=== PATIENT | male | born 1960 | race Caucasian/White ===

== ENCOUNTER → 2017-10-19 | Outpatient (CLI) | payer MEDICARE, MEDICAID, SELFPAY | PROVIDERS: Visit Provider Internal Medicine | DX: S91.301A Unspecified open wound, right foot, initial encounter (principal) | CPT/HCPCS: 87070; 87077; 87186 ==

== ENCOUNTER → 2018-01-08 09:31 | Outpatient (CLI) | payer MEDICARE, MEDICAID, SELFPAY ==
--- NOTE | 2018-01-08 | CA_ITS ---
PROCEDURE: 2-D M-mode and color Doppler study INDICATIONS FOR THE TEST: Chest pain COPD+ Heart Murmur Tobacco Smoking+ Palpitations+ Fatigue Syncope Edema Hypertension+Diabetes Mellitus+ Rheumatic Fever SOB+HILL+Obesity Hyperlipidemia+ Family History HD Additional History CAD, CABG Patient was slumped over in a wheelchair and unable to move to a bed. Imaging was performed with patient positioned as such, limiting visualization. PATIENT INFORMATION HEIGHT: 71 WEIGHT: 223 GENDER: Male B/P: 112/64 2-D/M-MODE INTERPRETATION: 2-D MEASUREMENTS OBSERVED VALUES IN CMS Right Ventricular Dimension (RVDd) 2.4 Interventricular Septum (Thickness)(IVsd) 1.3 Left Ventricular Internal Dimensions(LVIDd) 4.9 Left Ventricular Posterior Wall (Thickness)(LVPWd) 1.5 Aortic Root Aortic Cusp Separation Left Atrial Dimensions (LAD) 2D 1. Technically difficult study because of the patient's factor and poor acoustic windows 2. Left atrium is mildly enlarged, left ventricle is mildly dilated, there is mild concentric left ventricular hypertrophy, there is severely reduced left ventricular systolic function, visually estimated ejection fraction approximately 20%, there is marked hypo to akinesis involving mid to distal septum, anterior, anteroapical and apical wall. 3. The right atrium and right ventricle are normal size and contractility. 4. The aortic valve is minimally thickened and fibrosed. 5. The mitral and tricuspid valve leaflets are minimally thickened. 6. No significant pericardial effusion noted. DOPPLER INTERROGATION: Doppler interrogation of the aortic, mitral and tricuspid valvular presence of mild mitral and tricuspid regurgitation, tricuspid and jet velocity insufficient for calculation of the right ventricular systolic pressure, grade 1 diastolic dysfunction seen with tissue Doppler evidence of raised left atrial pressure. CONCLUSION: 1. Mildly enlarged left atrium, mildly dilated left ventricle, there is mild concentric left ventricular hypertrophy, there is severely reduced left ventricular systolic function, visually estimated ejection fraction 20%, with multiple segmental wall motion abnormality described above, grade 1 diastolic dysfunction seen with tissue Doppler evidence of raised left atrial pressure. 2. Mild mitral and tricuspid regurgitation 3. Technically difficult study because of the patient's factor and poor acoustic windows.
--- NOTE | 2018-01-08 10:38 | CT_ITS ---
CT angio abdomen/femoral INDICATION: Nonhealing ulcer of the right foot, peripheral artery disease, carotid artery disease, hypertension and diabetes ITS.REASON: CTA ABD AORTA/PAD/CAD ORDERING PHYSICIAN: Rios Recio MD PATIENT AGE: 57 years COMPARISON: None TECHNIQUE: Axial images are obtained following the bolus administration 120 mL of Isovue-370. Thin section images obtained with workstation MIP reformats. Sagittal and coronal reformatted images are reviewed as well. FINDINGS: Vascular findings: There are scattered atheromatous changes of the abdominal aorta. The celiac and superior mesenteric arteries are unremarkable. There is moderate to high-grade stenosis of the proximal aspect of the right renal artery of greater than 50%. There is 50% stenosis of the ostium of the left renal artery. Scattered calcific plaque is present in the abdominal aorta and iliac vessels. No significant stenosis however. Right lower extremity: Scattered calcific plaque is present in the right common femoral artery, superficial femoral artery and popliteal artery with segmental areas of stenosis which are less than 50%. There is moderate stenosis of the distal SFA on the right of 50-60% with scattered calcific plaque in the popliteal artery. There is moderate to severe calcific plaque in the tibial peroneal trunk. 2 runoff vessels to the ankle on the right are the peroneal and posterior tibial artery. High-grade stenosis is suspected at the distal aspect of the tibial peroneal trunk/origin of the posterior tibial artery of greater than 75%. This is somewhat difficult to evaluate due to venous contamination and the calcific plaque. Left lower extremity: Scattered calcific plaque is present in the common femoral, SFA, and popliteal artery with no critical stenotic lesions evident Severe atheromatous changes involve the tibial peroneal trunk on the left with high-grade stenosis and feeding of the tibial peroneal trauma with calcific plaque suspected 75% or greater stenosis at the distal aspect of the tibial peroneal trunk and severe stenosis of the proximal posterior tibial artery. Posterior tibial artery and anterior tibial artery are patent to the ankle. Peroneal artery is also patent at the ankle. Nonvascular findings: There is bowel interposition on the right with a moderate amount retained colonic feces. There is a 19 mm isodensity in the spleen and may represent splenic cyst. There is mild distention of the urinary bladder. No abdominal pelvic mass or focal inflammatory change evident. Small nodes are present in the right inguinal region IMPRESSION: 1. Scattered calcific plaque involves the aorta, iliac arteries, common femoral arteries differential femoral arteries and popliteal arteries with no significant stenosis. 2. Severe atheromatous changes involve the tibial peroneal trunk bilaterally with high-grade stenosis at the tibial peroneal trunks/ostium of the posterior tibia arteries of greater than 75%. 3. Bilateral renal artery stenosis.
--- NOTE | 2018-01-08 13:44 | HMH.ITSHM ---
ACETAMINOPHEN BISACODYL LIQUITEARS ONDANSETRON ALLOPURINOL ARIPIPRAZOLE ASPIRIN CARBIDOPA CARVEDILOL DIASEPAM DULOXETINE FLUTICASONE GABAPENTIN HUMULIN DOXYCYCLINE HYDROCODONE LORTAB LACTULOSE POLYETHYLENE GLYCOL SENNA PLUS SIIMVASTATIN TAMSULOSIN VITAMIN C VITAMIN D3
== END ==
PROVIDERS: Family Provider Emergency Medicine; PCP Emergency Medicine; Visit Provider Internal Medicine
DX: I25.10 Atherosclerotic heart disease of native coronary artery without angina pectoris (principal); I73.9 Peripheral vascular disease, unspecified; I71.4 Abdominal aortic aneurysm, without rupture
CPT/HCPCS: 75635; 93306; Q9967

== ENCOUNTER 2018-01-29 07:14 | Day surgery (SDC) | payer MEDICARE, MEDICAID, SELFPAY ==
[2018-01-29] VITALS (14 sets, daily range): BP systolic 101–151; BP diastolic 53–100; PULSE 76–110; RESP 16–20; TEMP 36.7; O2SAT 92–98; BMI 27.8
--- NOTE | 2018-01-29 | IR_ITS ---
CARDIAC CATHETERIZATION DATE OF CATHETERIZATION:01/29/2018 10:12 AM PROCEDURES: 1. Left heart catheterization 2. Left ventriculogram 3. Selective coronary angiogram 4. Selective engagement of the saphenous vein graft to the left and right coronary artery 5. Catheter placement in the right superficial femoral artery 6. Superficial femoral artery angiogram with unilateral runoff to the foot 7. Catheter placement on the right common iliac artery 8. Right common iliac artery angiogram with right external iliac artery angiogram and right common femoral artery angiogram 9. Catheter placement in the left common iliac artery 10. Left common iliac artery angiogram with unilateral runoff to the foot 11. Catheter placed in the abdominal aorta 12. Abdominal aortogram INDICATION FOR TEST: 1. Coronary artery disease 2. Angina pectoris class III and IV 3. History of coronary bypass surgery 4. Peripheral artery disease Dariana class 5. History of bilateral transmetatarsal amputation 6. Poorly healing right lower extremity ulcer with limb threatening ischemia Informed consent was obtained prior to the procedure. COMPLICATIONS: None ESTIMATED BLOOD LOSS: Less than 10 ml. TECHNIQUE: One percent lidocaine used to anesthetize the right anterior aspect of the wrist. The right radial artery was accessed via the Seldinger technique. A 6 Indonesian sheath was placed in the right radial artery. 2.5 mg of verapamil, 800 mcg of nitroglycerin and 5000 U Heparin were given through the arterial sheath. The trap catheter was also used to perform left heart catheterization left ventriculogram and selective coronary angiogram. The same catheter was used intubate the left saphenous vein graft supplying both the left coronary system in the right system. Following this a PV multipurpose 135 cm catheter was used to cannulate the right superficial femoral artery and unilateral runoff to the foot was performed. The catheter was pulled back into the right common iliac artery and angiography was performed. This included angiography of the right common and right external iliac artery as well as right common femoral artery. The catheter was pulled back and used to cannulate the left common iliac artery report unilateral runoff to the foot was performed. The catheter was pulled back into the abdominal aorta and distal abdominal aortography was performed. At the end of the procedure the apparatus was removed the sheath was removed good hemostasis was achieved using TR banding patient was transferred to the postop holding area in stable condition ANGIOGRAPHIC RESULTS: 1. The left main artery is normal 2. The left anterior descending artery has proximal 70% stenosis with competitive flow distally from the left internal mammary artery. The first diagonal artery is proximally occluded 3. The circumflex artery is proximally occluded 4. The right coronary artery appears to be dominant and has proximal 30 with mid vessel 40 and 50% stenoses and distal 50% stenoses. The posterior descending artery has competitive flow from moving graft. 2 marginal arteries preceding the PDA are less than 2 mm in diameter and has mild nonflow limiting disease 5. The ROWLEY ventriculogram reveals mild left ventricular dilatation inferior wall akinesis ejection fraction 45% 6. The left ventricular end-diastolic pressure 12 mmHg 7. Large saphenous vein graft originates from the ascending aorta and then bifurcates. The superior larger branch makes its anastomosis on to the first diagonal artery which fills a 1.5 mm diagonal artery and then skips over to the mid posterior descending artery. The PDA is a long 2 mm vessel. The inferior branch of this vein graft supplies a small to medium sized first obtuse marginal artery 8. Le
[2018-01-29 07:47] LABS: Basophils % 0.5 % (0.1-2.0); Eosinophils # 0.6 K/mm3 (0.0-0.4); Eosinophils % 6.7 % (0.1-12.0); Hematocrit 41.6 % (42.0-52.0); Hemoglobin 12.8 g/dL (14.1-18.0); Lymphocytes % 24.3 K/mm3 (10-50); Mean Corpuscular HGB Conc 30.7 g/dL (31.8-35.4); Mean Corpuscular Hemoglobin 28.3 pg (27.0-31.2); Mean Corpuscular Volume 91.9 fl (80-94); Mean Platelet Volume 8.2 fl (7.4-10.4); Monocytes # 0.5 K/mm3 (0.1-1.0); Monocytes % 6.3 % (1.7-9.3); Neutrophils # 5.2 K/mm3 (1.8-7.8); Neutrophils % 62.2 % (37.0-80.0); Platelet Count 280 K/mm3 (142-424); Red Blood Count 4.53 M/mm3 (4.60-6.20); Red Cell Distribution Width 13.6 % (11.5-17.5); White Blood Count 8.3 K/mm3 (4.8-10.8)
[2018-01-29 07:53] LABS: Anion Gap 8.5 mEq/L (5-15); Blood Urea Nitrogen 19 mg/dL (7-18); Carbon Dioxide 33 mmol/L (21.0-32.0); Chloride 101 mmol/L (98-107); Creatinine Clearance Estimated 108 mL/min (0-300); Creatinine,Serum 0.96 mg/dL (0.70-1.30); Estimated Glomerular Filt Rate 80 ml/min (>60); GFR (African American) 97 ML/MIN (>60); Glucose 139 mg/dL (74-106); Potassium 4.5 mmoL/L (3.5-5.1); Sodium 138 mmol/L (136-145)
== END 2018-01-29 15:11 ==
LOC: CATHLAB 07:17
PROVIDERS: Family Provider Emergency Medicine; PCP Emergency Medicine; Visit Provider Internal Medicine
DX: I70.238 Atherosclerosis of native arteries of right leg with ulceration of other part of lower leg; I25.119 Atherosclerotic heart disease of native coronary artery with unspecified angina pectoris; L97.819 Non-pressure chronic ulcer of other part of right lower leg with unspecified severity; I70.222 Atherosclerosis of native arteries of extremities with rest pain, left leg; Z95.5 Presence of coronary angioplasty implant and graft; Z95.1 Presence of aortocoronary bypass graft; I73.9 Peripheral vascular disease, unspecified; Z79.899 Other long term (current) drug therapy; I27.81 Cor pulmonale (chronic); I27.20 Pulmonary hypertension, unspecified; Z72.0 Tobacco use; J44.9 Chronic obstructive pulmonary disease, unspecified; R06.09 Other forms of dyspnea
CPT/HCPCS: 36245; 75625; 75716; 80048; 85025; 93459; 99152; 99153; C1725; C1769; J1644; Q9966; Q9967

== ENCOUNTER 2018-03-09 03:02 | Inpatient (IN) ==
[2018-03-09 03:17] LABS: ABG Base Excess 2.6 mmol/L (-2.4-2.3); ABG HCO3 27.4 mmhg (22.0-26.0); ABG Oxygen Saturation 85 % (90-100); ABG PCO2 45.5 mmhg (35.0-45.0); ABG TCO2 28.8 mmhg (23-27)
[2018-03-09 03:19] LABS: Allen's Test Patient Unable
[2018-03-09 03:21] LABS: ABG PO2 49.1 mmhg (80-100)
[2018-03-09 03:24] LABS: Basophils % 0.2 % (0.1-2.0); Eosinophils % 0.2 % (0.1-12.0); Hematocrit 49.4 % (42.0-52.0); Hemoglobin 15.7 g/dL (14.1-18.0); Lymphocytes # 0.9 K/mm3 (0.7-4.5); Lymphocytes % 5.4 K/mm3 (10-50); Mean Corpuscular HGB Conc 31.8 g/dL (31.8-35.4); Mean Corpuscular Hemoglobin 28.9 pg (27.0-31.2); Mean Corpuscular Volume 90.9 fl (80-94); Mean Platelet Volume 9.1 fl (7.4-10.4); Monocytes # 0.6 K/mm3 (0.1-1.0); Monocytes % 3.9 % (1.7-9.3); Neutrophils # 14.8 K/mm3 (1.8-7.8); Neutrophils % 90.3 % (37.0-80.0); Platelet Count 403 K/mm3 (142-424); Red Blood Count 5.43 M/mm3 (4.60-6.20); Red Cell Distribution Width 13.6 % (11.5-17.5); White Blood Count 16.4 K/mm3 (4.8-10.8)
[2018-03-09 03:49] LABS: Alanine Aminotransferase 9 U/L (12-78); Albumin Level 3.3 gm/dL (3.4-5.0); Albumin/Globulin Ratio 0.5 (1.1-1.8); Alkaline Phosphatase 95 U/L (46-116); Anion Gap 14.5 mEq/L (5-15); Aspartate Amino Transferase 18 U/L (15-37); Bilirubin,Total 0.7 mg/dL (0.2-1.0); Blood Urea Nitrogen 54 mg/dL (7-18); Carbon Dioxide 31 mmol/L (21.0-32.0); Chloride 94 mmol/L (98-107); Creatine Kinase 131 U/L (39-308); Globulin 6.1 gm/dl (1.3-3.2); Glucose 291 mg/dL (74-106); Potassium 4.5 mmoL/L (3.5-5.1); Sodium 135 mmol/L (136-145); Total Protein,Serum 9.4 gm/dL (6.4-8.2)
[2018-03-09 04:08] LABS: Anisocytosis 1+; Lymphocytes % 4 % (10-50); Monocytes % 2 % (2-9); Neutrophils % 94 % (42-76); Total Cells Counted 100
[2018-03-09 04:14] LABS: Microscopic, Urine URINE MICROSCOPIC (MICROSCOPIC)
[2018-03-09 04:22] LABS: Appearance,Urine CLEAR (Clear); Bilirubin,Urine Negative (Negative); Blood, Urine Negative (Negative); Color,Urine YELLOW (Yellow); Glucose,Urine (UA) 1+ (Negative); Ketones,Urine 1+ (Negative); Leukocyte Esterase,Urine Negative (Negative); Protein,Urine TRACE (Negative); Specific Gravity, Urine >= 1.030 (1.005-1.030); Urobilinogen,Urine 0.2 EU/dl (0.2)
[2018-03-09 04:25] LABS: Bacteria,Urine Trace /lpf
--- NOTE | 2018-03-09 05:34 | Emergency Department Note ---
ED Disposition Clinical Impression: HCAP (healthcare-associated pneumonia), Ileus, Renal insufficiency Cholelithiasis Qualifiers: Cholelithiasis location: bile duct Cholecystitis presence: without cholecystitis Biliary obstruction: without biliary obstruction Qualified Code(s) : K80.50 - Calculus of bile duct without cholangitis or cholecystitis without obstruction Disposition: Admitted as Observation Condition on Discharge: Serious Referrals: Jasmeet Hoover MD [Primary Care Provider] - - Critical Care Critical Care Time: No Attestation: On 03/09/18, the high probability of a clinically significant, sudden or life threatening deterioration of the following system(s) required my full and direct attention, intervention and personal management. The time I documented below is in addition to time spent performing reported procedures but includes the following listed in this critical care notation. Medical Decision Making - Medical Records Medical records reviewed: Yes: I reviewed the patient's medical records. - [place] Inquiry Pt receiving controlled substance: No Vital Signs: 03/09/18 03:03 03/09/18 05:19 Temperature 98.9 F Temperature Source Rectal Pulse Rate [Right Radial] 114 H 118 H Respiratory Rate 24 24 Blood Pressure [Right Arm] 136/73 146/83 Blood Pressure Mean [Right Arm] 94 104 02 Sat by Pulse Oximetry 74 L Oxygen Delivery Method Nasal Cannula Oxygen Flow Rate (LPM) 3 - Lab Data Lab results reviewed: Yes: I reviewed the patient's lab results. Lab Results 03/09/18 03:00: WBC 16.4 H, RBC 5.43, Hgb 15.7, Hct 49.4, MCV 90.9, MCH 28.9, MCHC 31.8, RDW 13.6, Plt Count 403, MPV 9.1, Neut % (Auto) 90.3 H, Lymph % (Auto ) 5.4 L, [place] % (Auto) 3.9, Eos % (Auto) 0.2, Baso % (Auto) 0.2, Neut # (Auto) 14.8 H, Lymph # (Auto) 0.9, [place] # (Auto) 0.6, Eos # (Auto) 0.0, Baso # (Auto) 0.0, Total Counted 100, Neutrophils % (Manual) 94 H, Lymphocytes % (Manual) 4 L , Monocytes % (Manual) 2, Platelet Estimate Normal, Anisocytosis 1+ 03/09/18 03:00: Sodium 135 L, Potassium 4.5, Chloride 94 L, Carbon Dioxide 31, Anion Gap 14.5, BUN 54 H, Creatinine 1.36 H, Estimated Creat Clear 68, Estimated GFR 54 L, Est GFR ( Amer) 65, Glucose 291 H, Calcium 10.0, Total Bilirubin 0.7, AST 18, ALT 9 L, Alkaline Phosphatase 95, Total Creatine Kinase 131, CK-MB (CK-2) 5.1 H, CK-MB (CK-2) Rel Index 3.9, Troponin I < 0.02, Total Protein 9.4 H, Albumin 3.3 L, Globulin 6.1 H, Albumin/Globulin Ratio 0.5 L 03/09/18 03:13: Specimen Source Right radial, O2 % 100% nrb, ABG pH 7.40, ABG pCO2 45.5 H, ABG pO2 49.1 L, ABG HCO3 27.4 H, ABG Total CO2 28.8 H, ABG O2 Saturation 85 L*, ABG Base Excess 2.6 H, Cristino Test Patient unable 03/09/18 04:10: Urine Color Yellow, Urine Appearance Clear, Urine pH 5.0, Ur Specific [place] >= 1.030, Urine Protein Trace, Urine Glucose (UA) 1+, Urine Ketones 1+, Urine Blood Negative, Urine Nitrate Negative, Urine Bilirubin Negative, Urine Urobilinogen 0.2, Ur Leukocyte Esterase Negative, Urine WBC 3-5 , Urine Bacteria Trace 03/09/18 04:35: Lactic Acid 2.7 H Result diagrams: 03/09/18 03:00 03/09/18 03:00 Orders (Tests/Meds): ED MEDICATIONS Discontinued Medications Generic Name Dose Route Start Last Admin Trade Name Freq PRN Reason Stop Dose Admin Sodium Chloride 1,000 mls @ 999 mls/hr 03/09/18 04:30 03/09/18 04:48 Sod Chlor 0.9% 1000ml Bag IV 03/09/18 05:30 999 mls/hr .Q1H1M RADHA Administration Ondansetron HCl 4 mg 03/09/18 04:24 03/09/18 04:48 Zofran 4mg/2ml Vial IV 03/09/18 04:25 4 mg ONCE ONE Administration ORDERS Category Date Time Status Blood Culture Stat Micro 04/17/18 03:30 Received - Radiology Data #1 Image(s): Chest Image Reviewed: Yes I reviewed the patient's radiology image Preliminary Findings: Abnormal (lll inflitreate) - CT Data CT Scan: Abdomen, Pelvis Time Received: 06:[address] Reviewed: Yes: I have viewed the radiologist's interpretation Preliminary Findings: Abnormal (see report) - ECG Data Tracing #1 I reviewed this ECG and interpreted as documented below: Arrhythmias present: sinus tach Ischemic changes: non-specific ST-T wave changes Nausea/Vomiting/Diarrhea HPI - General Chief complaint: Nausea/Vomiting/Diarrhea Stated complaint: vomiting Time Seen by Provider: 03/09/18 03:30 Mode of Arrival: EMS Source of Information: EMS, Medical Record Limitations: Physical Limitations Description of Symptoms (Recalled from ER Triage Doc. by RN): pt vomited dark/ coffee ground emesis per [facility] - History of Present Illness HPI Narrative: [facility] coffee grd emesis - pt unable to give hx and has chronic illness with iddm and dysphagia - pt with no fever or rash MD complaint: vomiting Onset (ago): hour(s) Description of Vomiting: coffee grounds Associated Abdominal Pain: No Severity: moderate - Related Data Home Medications Medication Instructions Recorded Confirmed acetaminophen 500 mg tablet 500 mg PO Q4HP PRN 12/31/17 03/09/18 allopurinol 100 mg tablet 100 mg PO ONCE 12/31/17 03/09/18 aripiprazole 10 mg tablet 10 mg PO ONCE 12/31/17 03/09/18 ascorbic acid (vitamin C) 500 mg 500 mg PO BID 12/31/17 03/09/18 capsule carbidopa 25 mg-levodopa 100 mg 2 tab PO QID 12/31/17 03/09/18 tablet carvedilol 6.25 mg tablet 6.25 mg PO BID 12/31/17 03/09/18 cholecalciferol (vitamin D3) 2,000 2,000 unit PO ONCE 12/31/17 03/09/18 unit capsule diazepam 5 mg tablet 5 mg PO BID tab 12/31/17 03/09/18 duloxetine 60 mg capsule,delayed 90 mg PO ONCE 12/31/17 03/09/18 release gabapentin 400 mg capsule 400 mg PO TID 12/31/17 03/09/18 hydrocodone 10 mg-acetaminophen 1 tab PO Q8H tab 12/31/17 03/09/18 325 mg tablet insulin U-100 regular human 100 5 unit SUB-Q QAM 12/31/17 03/09/18 unit/mL injection solution ondansetron HCl 4 mg tablet 4 mg PO Q8HP PRN 12/31/17 03/09/18 polyethylene glycol 3350 17 17 g PO ONCE PRN each 12/31/17 03/09/18 gram/dose oral powder simvastatin 40 mg tablet 40 mg PO QPM 12/31/17 03/09/18 tamsulosin 0.4 mg capsule 0.4 mg PO ONCE 12/31/17 03/09/18 Aspirin [Aspir 81] 81 mg PO DAILY 03/09/18 03/09/18 Bisacodyl [Bisacodyl 10mg Supp] 10 mg RC DAILYP PRN 03/09/18 03/09/18 Clopidogrel Bisulfate [Plavix 75mg 75 mg PO QDAY 03/09/18 03/09/18 Tab] Fluticasone Propionate [Flonase 1 spr NS BID PRN 03/09/18 03/09/18 50mcg nasal spray 16gm] Hydralazine HCl [Hydralazine HCl 12.5 mg PO TID 03/09/18 03/09/18 25mg Tablet] Isosorbide Dinitrate 10 mg PO TID 03/09/18 03/09/18 Lactulose [Lactulose 10gm/15ml 20 gm PO BID 03/09/18 03/09/18 Oral Soln] Polyvinyl Alcohol [Liquitears] 1 drop OP BIDP PRN 03/09/18 03/09/18 Sennosides [Senna Lax] 8.6 mg PO DAILY 03/09/18 03/09/18 Allergies Allergy/AdvReac Type Severity Reaction Status Date / Time pregabalin [From LYRICA] Allergy Unknown Verified 03/09/18 06:24 [facility] History I have reviewed the patient's past medical history: Yes Medical History: Reports:: Anxiety, Depression, Diabetes Mellitus Type 2, Hyperlipidemia, Hypertension, MRSA, Peripheral Vascular Disease Other Surgeries: Yes: Other Amputation: Yes Comment: [facility]/Sanjay 01/2018 Medical mgt - Social History Smoking Status: Current every day smoker Tobacco Type: cigarettes Alcohol Intake: never Alcohol Intake Frequency:: other Occupational Status: unemployed - Psychiatric History Expresses thoughts of harming self/others: None Suicide Plan Description: No Plan Pschychiatric History:: Reports:: Anxiety, Depression Family Hx:: Coronary Artery Disease ROS Obtained: Yes All systems reviewed & no additional complaints - Constitutional Constitutional: Denies fever(s) - Eyes Eyes: Denies eye discharge - ENT Ears, Nose, Mouth, and Throat: Denies epistaxis - Cardiovascular Cardiovascular: Denies chest pain - Respiratory Respiratory: Yes cough - Gastrointestinal Gastrointestingal: Reports: as per HPI, vomiting - Musculoskeletal Musculoskeletal: Denies joint pain - Integumentary/Breasts Skin/Breast: Denies rash - Neurologic Neurologic: Denies seizure-like activity Physical Exam - General General appearance: obtunded - Head Head exam: normocephalic - Eye Eye exam: Absent: scleral icterus - ENT ENT exam: Present: mucous membranes dry - Neck Neck exam: Present: trachea midline - Respiratory Respiratory exam: Present: other (dec bs bilat ). Absent: respiratory distress - Cardiovascular Cardiovascular exam: Present: regular rate, systolic murmur, +S4 - Abdominal Exam Abdominal exam: Present: soft. Absent: guarding, rebound - Extremities Exam Extremities exam: Present: pedal edema - Neurological Exam Neurological exam: Present: other (no posturing or focal changes ) - Skin Skin exam: Absent: rash
--- NOTE | 2018-03-09 07:11 | Pharmacy Consult Notes ---
[facility] Pharmacy VTE Monitoring - Patient Demographics Admission date: 03/09/18 Report Date: 03/09/18 Time: 07:10 Allergies/Adverse Reactions: Patient Allergies pregabalin [From LYRICA] Allergy (Unknown, Verified 03/09/18 06:24) Height: 1.83 m Weight: 81.647 kg Patient Problems: Current Active Problems HCAP (healthcare-associated pneumonia) (Acute) Ileus (Acute) Cholelithiasis (Acute) Renal insufficiency (Acute) - VTE Risk Labs: VTE Related Lab Results Hgb 15.7 g/dL (14.1-18.0) 03/09/18 03:00 Hct 49.4 % (42.0-52.0) 03/09/18 03:00 Plt Count 403 K/mm3 (142-424) 03/09/18 03:00 BUN 54 mg/dL (7-18) H 03/09/18 03:00 Creatinine 1.36 mg/dL (0.70-1.30) H 03/09/18 03:00 Estimated Creat Clear 68 mL/min (0-300) 03/09/18 03:00 Clinical Trial Participant: No - Prophylaxis VTE Prophylaxis Ordered?: Yes Types of VTE Prophylaxis: TEDS Knee High
[2018-03-09 07:35] LABS: ABG Base Excess 1.6 mmol/L (-2.4-2.3); ABG HCO3 25.9 mmhg (22.0-26.0); ABG Oxygen Saturation 91 % (90-100); ABG PCO2 39.9 mmhg (35.0-45.0); ABG PH 7.43 mmol/L (7.35-7.45); ABG PO2 58.1 mmhg (80-100); ABG TCO2 27.1 mmhg (23-27)
[2018-03-09 07:37] LABS: Allen's Test ACCEPTABLE; Oxygen NRB %
--- NOTE | 2018-03-09 08:00 | History & Physical Report ---
*Admission Date: 03/09/18 *Chief complaint: vomiting *History of present illness: this wm was sent from [facility] for eval of coffee ground vomitus this am with low sat - pt unable to give hx sec to chronic illness- pt was seen in the ed with abn cxr with lt hcap and ct which showed ileus and cholelithiasis- no hx of melena- pt was started on abx and surg consult [facility] History I have reviewed the patient's past medical history: Yes Medical History: Reports:: Anxiety, Depression, Diabetes Mellitus Type 2, Hyperlipidemia, Hypertension, MRSA, Peripheral Vascular Disease Other Medical History: Reports: Cataracts Other Surgeries: Yes: Other Amputation: Yes - *Social History Smoking Status: Current every day smoker Tobacco Type: cigarettes Alcohol Intake: never Alcohol Intake Frequency:: other Occupational Status: unemployed Housing: alf - Psychiatric History Expresses thoughts of harming self/others: None Suicide Plan Description: No Plan Pschychiatric History:: Reports:: Anxiety, Depression *Family Hx:: Unable to obtain, Coronary Artery Disease Review of Systems - *Neurologic Denies seizure-like activity Meds Home Medications Medication Instructions Recorded Confirmed Type acetaminophen 500 mg tablet 500 mg PO Q4HP PRN 12/31/17 03/09/18 History allopurinol 100 mg tablet 100 mg PO ONCE 12/31/17 03/09/18 History aripiprazole 10 mg tablet 10 mg PO ONCE 12/31/17 03/09/18 History ascorbic acid (vitamin C) 500 mg 500 mg PO BID 12/31/17 03/09/18 History capsule carbidopa 25 mg-levodopa 100 mg 2 tab PO QID 12/31/17 03/09/18 History tablet carvedilol 6.25 mg tablet 6.25 mg PO BID 12/31/17 03/09/18 History cholecalciferol (vitamin D3) 2,000 2,000 unit PO ONCE 12/31/17 03/09/18 History unit capsule diazepam 5 mg tablet 5 mg PO BID tab 12/31/17 03/09/18 History duloxetine 60 mg capsule,delayed 90 mg PO ONCE 12/31/17 03/09/18 History release gabapentin 400 mg capsule 400 mg PO TID 12/31/17 03/09/18 History hydrocodone 10 mg-acetaminophen 1 tab PO Q8H tab 12/31/17 03/09/18 History 325 mg tablet insulin U-100 regular human 100 5 unit SUB-Q QAM 12/31/17 03/09/18 History unit/mL injection solution ondansetron HCl 4 mg tablet 4 mg PO Q8HP PRN 12/31/17 03/09/18 History polyethylene glycol 3350 17 17 g PO ONCE PRN each 12/31/17 03/09/18 History gram/dose oral powder simvastatin 40 mg tablet 40 mg PO QPM 12/31/17 03/09/18 History tamsulosin 0.4 mg capsule 0.4 mg PO ONCE 12/31/17 03/09/18 History Aspirin [Aspir 81] 81 mg PO DAILY 03/09/18 03/09/18 History Bisacodyl [Bisacodyl 10mg Supp] 10 mg RC DAILYP PRN 03/09/18 03/09/18 History Clopidogrel Bisulfate [Plavix 75mg 75 mg PO QDAY 03/09/18 03/09/18 History Tab] Fluticasone Propionate [Flonase 1 spr NS BID PRN 03/09/18 03/09/18 History 50mcg nasal spray 16gm] Hydralazine HCl [Hydralazine HCl 12.5 mg PO TID 03/09/18 03/09/18 History 25mg Tablet] Isosorbide Dinitrate 10 mg PO TID 03/09/18 03/09/18 History Lactulose [Lactulose 10gm/15ml 20 gm PO BID 03/09/18 03/09/18 History Oral Soln] Polyvinyl Alcohol [Liquitears] 1 drop OP BIDP PRN 03/09/18 03/09/18 History Sennosides [Senna Lax] 8.6 mg PO DAILY 03/09/18 03/09/18 History Allergies Allergy/AdvReac Type Severity Reaction Status Date / Time pregabalin [From LYRICA] Allergy Unknown Verified 03/09/18 06:24 Exam Vital signs and Labs for Last 24 Hours: Temp Pulse Resp BP Pulse Ox 98.8 F 130 H 48 H 116/76 94 L 03/09/18 07:00 03/09/18 07:00 03/09/18 07:00 03/09/18 07:00 03/09/18 07:00 Laboratory Results - last 24 hr 03/09/18 07:32: Specimen Source L radial, O2 % Nrb, ABG pH 7.43, ABG pCO2 39.9, ABG pO2 58.1 L, ABG HCO3 25.9, ABG Total CO2 27.1 H, ABG O2 Saturation 91, ABG Base Excess 1.6, Cristino Test Acceptable I & O for Last 24 hours: Intake & Output 03/06/18 03/07/18 03/08/18 03/09/18 11:59 11:59 11:59 11:59 Weight 180 lb - Constitutional no acute distress - *Routine HEENT Exam Head: Present: normocephalic Eye: Present: EOMI, PERRL ENT: Present: mucous membranes dry - *Routine Neck Exam Absent: JVD - *Routine Respiratory Exam Present: decreased breath sounds, wheezes - *Routine Cardiovascular Exam Present: murmur, S4 - *Routine Abdominal Exam Present: soft, distended. Absent: guarding - *Routine Extremities Exam Absent: calf tenderness - *Routine Skin Exam Present: dry - *Routine Neurological Exam obtunded with no posturing or focal changes Assessment and Plan (1) HCAP (healthcare-associated pneumonia) Current visit: Yes Status: Acute Category: Medical Code(s): J18.9 - Pneumonia, unspecified organism (2) Ileus Current visit: Yes Status: Acute Category: Medical Code(s): K56.7 - Ileus , unspecified (3) Cholelithiasis Current visit: Yes Status: Acute Qualifiers: Cholelithiasis location: bile duct Cholecystitis presence: without cholecystitis Biliary obstruction: without biliary obstruction Qualified Code(s): K80.50 - Calculus of bile duct without cholangitis or cholecystitis without obstruction Category: Medical Code(s): K80.20 - Calculus of gallbladder without cholecystitis without obstruction (4) Renal insufficiency Current visit: Yes Status: Acute Category: Medical Code(s): N28.9 - Disorder of kidney and ureter, unspecified
--- NOTE | 2018-03-09 10:13 | Consult Report ---
*Admission Date: 03/09/18 *Chief complaint: Vomiting *History of present illness: Patient is a 57-year-old white male with history of diabetes, coronary artery disease, Parkinson's, left ventricular dysfunction, severe atherosclerotic disease on Plavix who is a skilled nursing patient. He was brought by EMS to the emergency department early this morning with reported coffee-ground emesis. He was found to have low oxygen saturations. He underwent CT scan which revealed pneumonia. Other findings included "ileus" and gallstones. He was admitted for inpatient management and surgical consultation was obtained. Patient is unable to provide any history. Review of Systems - Review of Systems Review of systems:: unable to obtain - *Neurologic Denies seizure-like activity [facility] History Medical History: Reports:: Anxiety, Depression, Diabetes Mellitus Type 2, Hyperlipidemia, Hypertension, MRSA, Peripheral Vascular Disease Other Medical History: Reports: Cataracts Other Surgeries: Yes: Other Amputation: Yes - *Social History Smoking Status: Current every day smoker Tobacco Type: cigarettes Alcohol Intake: never Alcohol Intake Frequency:: other Occupational Status: unemployed Housing: skilled nursing - Psychiatric History Expresses thoughts of harming self/others: None Suicide Plan Description: No Plan Pschychiatric History:: Reports:: Anxiety, Depression *Family Hx:: Unable to obtain, Coronary Artery Disease Meds Home Medications Medication Instructions Recorded Confirmed Type acetaminophen 500 mg tablet 500 mg PO Q4HP PRN 12/31/17 03/09/18 History allopurinol 100 mg tablet 100 mg PO DAILY 12/31/17 03/09/18 History aripiprazole 10 mg tablet 10 mg PO HS 12/31/17 03/09/18 History ascorbic acid (vitamin C) 500 mg 500 mg PO BID 12/31/17 03/09/18 History capsule carbidopa 25 mg-levodopa 100 mg 2 tab PO QID 12/31/17 03/09/18 History tablet carvedilol 6.25 mg tablet 6.25 mg PO BID 12/31/17 03/09/18 History cholecalciferol (vitamin D3) 2,000 2,000 unit PO DAILY 12/31/17 03/09/18 History unit capsule diazepam 5 mg tablet 5 mg PO BID tab 12/31/17 03/09/18 History duloxetine 60 mg capsule,delayed 90 mg PO DAILY 12/31/17 03/09/18 History release gabapentin 400 mg capsule 400 mg PO TID 12/31/17 03/09/18 History hydrocodone 10 mg-acetaminophen 1 tab PO Q8H tab 12/31/17 03/09/18 History 325 mg tablet insulin U-100 regular human 100 0 unit SUB-Q ACHS 12/31/17 03/09/18 History unit/mL injection solution ondansetron HCl 4 mg tablet 4 mg PO Q8HP PRN 12/31/17 03/09/18 History polyethylene glycol 3350 17 17 g PO DAILY each 12/31/17 03/09/18 History gram/dose oral powder simvastatin 40 mg tablet 40 mg PO HS 12/31/17 03/09/18 History tamsulosin 0.4 mg capsule 0.4 mg PO HS 12/31/17 03/09/18 History Aspirin [Aspirin 81mg chewable 81 mg PO DAILY 03/09/18 03/09/18 History tab] Bisacodyl [Bisacodyl 10mg Supp] 10 mg RC DAILYP PRN 03/09/18 03/09/18 History Clopidogrel Bisulfate [Plavix 75mg 75 mg PO DAILY 03/09/18 03/09/18 History Tab] Fluticasone Propionate [Flonase 1 spr NS DAILY 03/09/18 03/09/18 History 50mcg nasal spray 16gm] Hydralazine HCl [Hydralazine HCl 12.5 mg PO TID 03/09/18 03/09/18 History 25mg Tablet] Isosorbide Dinitrate 10 mg PO TID 03/09/18 03/09/18 History Lactulose [Lactulose 10gm/15ml 20 gm PO BID 03/09/18 03/09/18 History Oral Soln] Polyvinyl Alcohol [Liquitears] 1 drop OP BIDP PRN 03/09/18 03/09/18 History Sennosides/Docusate Sodium 1 tab PO DAILY 03/09/18 03/09/18 History [Docusate Sodium-Senna Tablet] Allergies Allergy/AdvReac Type Severity Reaction Status Date / Time pregabalin [From LYRICA] Allergy Unknown Verified 03/09/18 06:24 Exam Vital signs and Labs for Last 24 Hours: Temp Pulse Resp BP Pulse Ox 98.8 F 130 H 48 H 116/76 94 L 03/09/18 07:00 03/09/18 07:00 03/09/18 07:00 03/09/18 07:00 03/09/18 07:00 Laboratory Results - last 24 hr 03/09/18 07:32: Specimen Source L radial, O2 % Nrb, ABG pH 7.43, ABG pCO2 39.9, ABG pO2 58.1 L, ABG HCO3 25.9, ABG Total CO2 27.1 H, ABG O2 Saturation 91, ABG Base Excess 1.6, Cristino Test Acceptable 03/09/18 08:55: Lactic Acid Fup @ 4Hr 2.6 H I & O for Last 24 hours: Intake & Output 03/06/18 03/07/18 03/08/18 03/09/18 11:59 11:59 11:59 11:59 Weight 180 lb - Constitutional mild distress, chronically ill appearing - *Routine Respiratory Exam Present: rales, rhonchi, diminished air movement Comments: Patient is tachypneic with coarse breath sounds bilaterally - *Routine Cardiovascular Exam Present: tachycardia - *Routine Abdominal Exam Present: soft. Absent: tenderness Results - Labs 03/09/18 03:00 03/09/18 03:00 Laboratory Results - last 24 hr 03/09/18 07:32: Specimen Source L radial, O2 % Nrb, ABG pH 7.43, ABG pCO2 39.9, ABG pO2 58.1 L, ABG HCO3 25.9, ABG Total CO2 27.1 H, ABG O2 Saturation 91, ABG Base Excess 1.6, Cristino Test Acceptable 03/09/18 08:55: Lactic Acid Fup @ 4Hr 2.6 H Assessment and Plan (1) HCAP (healthcare-associated pneumonia) Current visit: Yes Status: Acute Category: Medical Code(s): J18.9 - Pneumonia, unspecified organism (2) Ileus Current visit: Yes Status: Acute Category: Medical Code(s): K56.7 - Ileus , unspecified (3) Cholelithiasis Current visit: Yes Status: Acute Qualifiers: Cholelithiasis location: bile duct Cholecystitis presence: without cholecystitis Biliary obstruction: without biliary obstruction Qualified Code(s): K80.50 - Calculus of bile duct without cholangitis or cholecystitis without obstruction Category: Medical Code(s): K80.20 - Calculus of gallbladder without cholecystitis without obstruction (4) Renal insufficiency Current visit: Yes Status: Acute Category: Medical Code(s): N28.9 - Disorder of kidney and ureter, unspecified - Assessment and plan all Dx Assessment and Plan for all problems:: Patient had reported coffee-ground emesis prior to arrival. Blood work on arrival revealed hemoglobin of 15 and hematocrit of 49%. Due to patient's profound chronic underlying medical comorbidities and current apparent acute pneumonia upper endoscopy would not be indicated. Recommend proton pump inhibitors and empiric treatment for possible ulcer. Monitor hemoglobin and hematocrit. Will plan to recheck his lactic acid as it was elevated upon presentation. He does have some risk factors for mesenteric ischemia although his clinical scenario is not consistent with such. If he does show improvement of his renal function with hydration consider CT scan with IV contrast. Due to his profound chronic and acute comorbidities including relatively recent echocardiogram revealing ejection fraction of 20% would not pursue any intervention at this time. It is doubtful at this time the patient would even tolerate upper GI contrast study.
--- NOTE | 2018-03-09 15:07 | Progress Note ---
Acute Rapid Response Note - Subjective Date Responded: 03/09/18 Time Responded: 14:20 Provider Note: Rapid response read called. I responded as the emergency physician. The patient is reported to have severe Parkinson's disease and is admitted for pneumonia and sepsis. Declining mental status today, now unresponsive. Increasing respiratory rate and decreased O2 saturation. Chest x-ray showed advancing left lower lobe pneumonia according to nursing staff. Dr. Hoover was contacted and recommended intubation. Upon my arrival, the patient is tachycardic, tachypnea, and unresponsive. He has severe contractures so that his back and neck are flexed forward, unable to rest back or head against the bed, they are contractured up in the air. This makes her very difficult intubation. [place] scope was obtained from the emergency department. Standard laryngoscope could not be used given his contractured positioning. The patient was easily intubated on the first pass with a 7.5 endotracheal tube , 22 cm at the a corner of the mouth. Tube was seen to go through the cords. Good bilateral breath sounds. No sounds over the epigastrium. Good end tidal CO2. The patient became hypotensive after intubation. Nursing staff reports that prior to intubation his blood pressure had not been below 100 systolic. 2 L of IV fluids were ordered, nursing staff reports that he has had about 2 L since admission. Levophed drip ordered. The patient is being moved to stepdown. Ventilator be instituted, settings per respiratory therapist. - Objective Findings: Vital Signs - Last 4 Hours Temperature 100.8 F H 03/09/18 11:47 Temperature Source Rectal 03/09/18 11:47 Pulse Rate 120 H 03/09/18 14:13 Respiratory Rate 44 H 03/09/18 11:47 Blood Pressure 121/63 03/09/18 11:47 Blood Pressure Mean 82 03/09/18 11:47 Blood Pressure Source Automatic Cuff 03/09/18 11:47 Blood Pressure Position Supine 03/09/18 11:47 02 Sat by Pulse Oximetry 91 L 03/09/18 11:47 Oxygen Delivery Method 03/09/18 14:00 Oxygen Flow Rate (LPM) 3 03/09/18 14:00 Lab Results for Past 12 Hours 03/09/18 12:22: POC Glucose 266 H 03/09/18 12:10: Lactic Acid Fup @ 2Hr 3.3 H 03/09/18 10:25: POC Glucose 282 H My Orders 3 Category Date Time Status Dextrose 5 % in Water [Dextrose 5% Water 250 mL IV] 250 Med 03/09/18 14:45 Active ml Norepinephrine Bitartrate [Levophed 4mg/4mL vial] 8 mg IV 1 mcg/min Rapid Response Exam - General General appearance: obtunded
[2018-03-09 16:41] LABS: ABG HCO3 21.5 mmhg (22.0-26.0); ABG Oxygen Saturation 96 % (90-100); ABG PCO2 45.4 mmhg (35.0-45.0); ABG PH 7.29 mmol/L (7.35-7.45); ABG PO2 85.2 mmhg (80-100); ABG TCO2 22.9 mmhg (23-27)
[2018-03-09 16:43] LABS: Allen's Test UNABLE; Oxygen 70 %; PEEP 5; Tidal Volume 450
[2018-03-10 05:50] LABS: Anion Gap 12.8 mEq/L (5-15); Potassium 3.8 mmoL/L (3.5-5.1)
[2018-03-10 05:56] LABS: Hematocrit 34.6 % (42.0-52.0); Mean Corpuscular Hemoglobin 28.7 pg (27.0-31.2); Red Blood Count 3.85 M/mm3 (4.60-6.20); White Blood Count 18.2 K/mm3 (4.8-10.8)
[2018-03-10 05:57] LABS: Basophils % 0.1 % (0.1-2.0); Lymphocytes % 5.3 K/mm3 (10-50); Mean Corpuscular HGB Conc 31.9 g/dL (31.8-35.4); Mean Platelet Volume 8.9 fl (7.4-10.4); Monocytes % 5.1 % (1.7-9.3); Neutrophils # 16.3 K/mm3 (1.8-7.8); Neutrophils % 89.4 % (37.0-80.0); Platelet Count 305 K/mm3 (142-424); Red Cell Distribution Width 13.8 % (11.5-17.5)
[2018-03-10 05:58] LABS: Monocytes # 0.9 K/mm3 (0.1-1.0)
[2018-03-10 06:31] LABS: ABG Oxygen Saturation 98 % (90-100); ABG PCO2 40.4 mmhg (35.0-45.0); ABG PH 7.39 mmol/L (7.35-7.45); ABG PO2 95.6 mmhg (80-100); ABG TCO2 25.2 mmhg (23-27); Oxygen 70 %; PEEP 5; Tidal Volume 450
--- NOTE | 2018-03-10 09:22 | Progress Note ---
Internal Medicine - PN: Subj *Date: 03/10/18 *Time: 09:19 Interval history: looks better and awake with intubation after resp failure yesterday - has pos blood culture Exam Vital signs and Labs for Last 24 Hours: Temp Pulse Resp BP Pulse Ox 100.1 F H 108 H 17 107/58 99 03/10/18 06:00 03/10/18 08:00 03/10/18 07:00 03/10/18 07:00 03/10/18 08:00 Laboratory Results - last 24 hr 03/09/18 10:25: POC Glucose 282 H 03/09/18 12:10: Lactic Acid Fup @ 2Hr 3.3 H 03/09/18 12:22: POC Glucose 266 H 03/09/18 16:35: Specimen Source Left brachial, O2 % 70, ABG pH 7.29 L, ABG pCO2 45.4 H, ABG pO2 85.2, ABG HCO3 21.5 L, ABG Total CO2 22.9 L, ABG O2 Saturation 96, ABG Base Excess -5.0 L, Cristino Test Unable, Vent Rate 16, Tidal Volume 450, PEEP 5 03/09/18 17:26: POC Glucose 307 H* 03/09/18 20:17: POC Glucose 288 H 03/10/18 05:00: WBC 18.2 H, RBC 3.85 L D, Hgb 11.0 L, Hct 34.6 L, MCV 90.0, MCH 28.7, MCHC 31.9, RDW 13.8, Plt Count 305, MPV 8.9, Neut % (Auto) 89.4 H, Lymph % (Auto) 5.3 L, Kay % (Auto) 5.1, Eos % (Auto) 0.0 L, Baso % (Auto) 0.1, Neut # (Auto) 16.3 H, Lymph # (Auto) 1.0, Kay # (Auto) 0.9, Eos # (Auto) 0.0, Baso # (Auto) 0.0 03/10/18 05:00: Sodium 140, Potassium 3.8, Chloride 106, Carbon Dioxide 25, Anion Gap 12.8, BUN 64 H, Creatinine 1.18, Estimated Creat Clear 79, Estimated GFR 63, Est GFR ( Amer) 77, Glucose 257 H, Magnesium 1.4 03/10/18 05:58: POC Glucose 226 H 03/10/18 06:29: Specimen Source R brachial, O2 % 70, ABG pH 7.39, ABG pCO2 40.4 , ABG pO2 95.6, ABG HCO3 24.0, ABG Total CO2 25.2, ABG O2 Saturation 98, ABG Base Excess -1.0, Cristino Test N/a, Vent Rate 16, Tidal Volume 450, PEEP 5 I & O for Last 24 hours: Intake & Output 03/07/18 03/08/18 03/09/18 03/10/18 11:59 11:59 11:59 11:59 Intake Total 3473 / 3473 Output Total 2781 / 2781 Balance 692 / 692 Weight 190 lb 6 oz Microbiology Reports for the Last 24 Hours: Microbiology 03/09/18 14:50 Sputum - Expectorated Sputum Gram Stain - Final 03/09/18 14:50 Sputum - Expectorated Sputum Sputum Culture - Preliminary Gram Negative Rods - Constitutional Comments: intubated - *Routine HEENT Exam Head: Present: atraumatic Eye: Present: EOMI, PERRL - *Routine Neck Exam Absent: JVD - *Routine Respiratory Exam Comments: intubated on 70 % - *Routine Cardiovascular Exam Present: RRR, murmur - *Routine Abdominal Exam Present: soft - *Routine Extremities Exam Present: edema - *Routine Skin Exam Present: intact - *Routine Neurological Exam no posturing Assessment and Plan (1) HCAP (healthcare-associated pneumonia) Current visit: Yes Status: Acute Category: Medical Code(s): J18.9 - Pneumonia, unspecified organism (2) Ileus Current visit: Yes Status: Acute Category: Medical Code(s): K56.7 - Ileus , unspecified (3) Cholelithiasis Current visit: Yes Status: Acute Qualifiers: Cholelithiasis location: bile duct Cholecystitis presence: without cholecystitis Biliary obstruction: without biliary obstruction Qualified Code(s): K80.50 - Calculus of bile duct without cholangitis or cholecystitis without obstruction Category: Medical Code(s): K80.20 - Calculus of gallbladder without cholecystitis without obstruction (4) Renal insufficiency Current visit: Yes Status: Acute Category: Medical Code(s): N28.9 - Disorder of kidney and ureter, unspecified (5) Respiratory failure Current visit: Yes Status: Acute Category: Medical Code(s): J96.90 - Respiratory failure, unspecified, unspecified whether with hypoxia or hypercapnia (6) Staphylococcus aureus bacteremia Current visit: Yes Status: Acute Category: Medical Code(s): R78.81 - Bacteremia
[2018-03-10 09:45] LABS: Lymphocytes % 3 % (10-50); Monocytes % 3 % (2-9); Neutrophils % 90 % (42-76); Total Cells Counted 100
--- NOTE | 2018-03-10 12:40 | Progress Note ---
Subjective Narrative: Patient intubated and mechanically ventilated Exam Vital signs and Labs for Last 24 Hours: Temp Pulse Resp BP Pulse Ox 100.5 F H 109 H 23 109/61 97 03/10/18 12:00 03/10/18 12:00 03/10/18 12:00 03/10/18 12:00 03/10/18 12:00 Laboratory Results - last 24 hr 03/09/18 12:10: Lactic Acid Fup @ 2Hr 3.3 H 03/09/18 12:22: POC Glucose 266 H 03/09/18 16:35: Specimen Source Left brachial, O2 % 70, ABG pH 7.29 L, ABG pCO2 45.4 H, ABG pO2 85.2, ABG HCO3 21.5 L, ABG Total CO2 22.9 L, ABG O2 Saturation 96, ABG Base Excess -5.0 L, Cristino Test Unable, Vent Rate 16, Tidal Volume 450, PEEP 5 03/09/18 17:26: POC Glucose 307 H* 03/09/18 20:17: POC Glucose 288 H 03/10/18 05:00: WBC 18.2 H, RBC 3.85 L D, Hgb 11.0 L, Hct 34.6 L, MCV 90.0, MCH 28.7, MCHC 31.9, RDW 13.8, Plt Count 305, MPV 8.9, Neut % (Auto) 89.4 H, Lymph % (Auto) 5.3 L, [place] % (Auto) 5.1, Eos % (Auto) 0.0 L, Baso % (Auto) 0.1, Neut # (Auto) 16.3 H, Lymph # (Auto) 1.0, [place] # (Auto) 0.9, Eos # (Auto) 0.0, Baso # (Auto) 0.0, Total Counted 100, Neutrophils % (Manual) 90 H, Band Neutrophils % 2.0, Lymphocytes % (Manual) 3 L, Atypical Lymphs % 2.0, Monocytes % (Manual) 3 , Platelet Estimate Normal 03/10/18 05:00: Sodium 140, Potassium 3.8, Chloride 106, Carbon Dioxide 25, Anion Gap 12.8, BUN 64 H, Creatinine 1.18, Estimated Creat Clear 79, Estimated GFR 63, Est GFR ( Amer) 77, Glucose 257 H, Magnesium 1.4 03/10/18 05:58: POC Glucose 226 H 03/10/18 06:29: Specimen Source R brachial, O2 % 70, ABG pH 7.39, ABG pCO2 40.4 , ABG pO2 95.6, ABG HCO3 24.0, ABG Total CO2 25.2, ABG O2 Saturation 98, ABG Base Excess -1.0, Cristino Test N/a, Vent Rate 16, Tidal Volume 450, PEEP 5 I & O for Last 24 hours: Intake & Output 03/08/18 03/09/18 03/10/18 03/11/18 11:59 11:59 11:59 11:59 Intake Total 3673 / 3673 105 / 105 Output Total 2941 / 2941 46 / 46 Balance 732 / 732 59 / 59 Weight 190 lb 6 oz Microbiology Reports for the Last 24 Hours: Microbiology 03/09/18 14:50 Sputum - Expectorated Sputum Gram Stain - Final 03/09/18 14:50 Sputum - Expectorated Sputum Sputum Culture - Preliminary Gram Negative Rods - *Routine Abdominal Exam Present: soft Progress Note: A&P (1) HCAP (healthcare-associated pneumonia) Status: Acute Current Visit: Yes (2) Ileus Status: Acute Current Visit: Yes (3) Cholelithiasis Status: Acute Current Visit: Yes (4) Renal insufficiency Status: Acute Current Visit: Yes (5) Respiratory failure Status: Acute Current Visit: Yes (6) Staphylococcus aureus bacteremia Status: Acute Current Visit: Yes Assessment and Plan for All Diagnoses:: No indication for surgical intervention at this time. Recommend proton pump inhibitors for reported history of coffee-ground emesis prior to arrival. Patient has shown some decrease in hemoglobin and hematocrit however has received significant amount of intravenous fluids for hypotension secondary to bacteremia presumably secondary to pneumonia.
[2018-03-11 06:24] LABS: ABG Base Excess 0.1 mmol/L (-2.4-2.3); ABG HCO3 24.6 mmhg (22.0-26.0); ABG Oxygen Saturation 97 % (90-100); ABG PH 7.42 mmol/L (7.35-7.45); ABG PO2 93.2 mmhg (80-100); ABG TCO2 25.8 mmhg (23-27)
[2018-03-11 06:26] LABS: Oxygen 40 %; PEEP 5; Tidal Volume CPAP 480
[2018-03-11 06:27] LABS: Allen's Test Patient Unable
--- NOTE | 2018-03-11 09:45 | Progress Note ---
Internal Medicine - PN: Subj *Date: 03/11/18 *Time: 09:42 Interval history: doing better will try to extubate today Exam Vital signs and Labs for Last 24 Hours: Temp Pulse Resp BP Pulse Ox 98.3 F 99 H 22 135/71 98 03/11/18 09:00 03/11/18 09:00 03/11/18 09:00 03/11/18 09:00 03/11/18 09:00 Laboratory Results - last 24 hr 03/10/18 05:00: Total Counted 100, Neutrophils % (Manual) 90 H, Band Neutrophils % 2.0, Lymphocytes % (Manual) 3 L, Atypical Lymphs % 2.0, Monocytes % (Manual) 3, Platelet Estimate Normal 03/10/18 11:25: POC Glucose 202 H 03/10/18 16:36: POC Glucose 201 H 03/10/18 23:54: POC Glucose 240 H 03/11/18 05:47: POC Glucose 215 H 03/11/18 06:15: Specimen Source Right radial, O2 % 40, ABG pH 7.42, ABG pCO2 39.0, ABG pO2 93.2, ABG HCO3 24.6, ABG Total CO2 25.8, ABG O2 Saturation 97, ABG Base Excess 0.1, Cristino Test Patient unable, Tidal Volume Cpap 480, PEEP 5 I & O for Last 24 hours: Intake & Output 03/08/18 03/09/18 03/10/18 03/11/18 11:59 11:59 11:59 11:59 Intake Total 3773 / 3773 1927 / 1927 Output Total 2941 / 2941 1715 / 1715 Balance 832 / 832 212 / 212 Weight 190 lb 6 oz 194 lb 3 oz Microbiology Reports for the Last 24 Hours: Microbiology 03/09/18 14:50 Sputum - Expectorated Sputum Gram Stain - Final 03/09/18 14:50 Sputum - Expectorated Sputum Sputum Culture - Preliminary Gram Negative Rods - Constitutional no acute distress Comments: awake - intubated - *Routine HEENT Exam Head: Present: normocephalic Eye: Present: EOMI, PERRL Comments: intubated - *Routine Neck Exam Absent: JVD - *Routine Respiratory Exam Present: patient mechanically ventilated - *Routine Cardiovascular Exam Present: RRR, murmur - *Routine Extremities Exam Absent: calf tenderness - *Routine Skin Exam Present: intact - *Routine Neurological Exam Present: alert, CN II-XII intact - Routine Psychiatric Exam Present: normal affect Assessment and Plan (1) HCAP (healthcare-associated pneumonia) Current visit: Yes Status: Acute Category: Medical Code(s): J18.9 - Pneumonia, unspecified organism (2) Ileus Current visit: Yes Status: Acute Category: Medical Code(s): K56.7 - Ileus , unspecified (3) Cholelithiasis Current visit: Yes Status: Acute Qualifiers: Cholelithiasis location: bile duct Cholecystitis presence: without cholecystitis Biliary obstruction: without biliary obstruction Qualified Code(s): K80.50 - Calculus of bile duct without cholangitis or cholecystitis without obstruction Category: Medical Code(s): K80.20 - Calculus of gallbladder without cholecystitis without obstruction (4) Renal insufficiency Current visit: Yes Status: Acute Category: Medical Code(s): N28.9 - Disorder of kidney and ureter, unspecified (5) Respiratory failure Current visit: Yes Status: Acute Category: Medical Code(s): J96.90 - Respiratory failure, unspecified, unspecified whether with hypoxia or hypercapnia (6) Staphylococcus aureus bacteremia Current visit: Yes Status: Acute Category: Medical Code(s): R78.81 - Bacteremia
[2018-03-11 10:38] LABS: Basophils % 0.1 % (0.1-2.0); Eosinophils % 0.1 % (0.1-12.0); Hematocrit 31.2 % (42.0-52.0); Hemoglobin 9.8 g/dL (14.1-18.0); Lymphocytes # 0.9 K/mm3 (0.7-4.5); Mean Corpuscular HGB Conc 31.3 g/dL (31.8-35.4); Mean Corpuscular Hemoglobin 28.3 pg (27.0-31.2); Mean Corpuscular Volume 90.4 fl (80-94); Mean Platelet Volume 9.8 fl (7.4-10.4); Monocytes # 0.8 K/mm3 (0.1-1.0); Monocytes % 4.3 % (1.7-9.3); Neutrophils # 16.8 K/mm3 (1.8-7.8); Neutrophils % 90.4 % (37.0-80.0); Platelet Count 269 K/mm3 (142-424); Red Blood Count 3.44 M/mm3 (4.60-6.20); Red Cell Distribution Width 13.9 % (11.5-17.5); White Blood Count 18.6 K/mm3 (4.8-10.8)
[2018-03-11 10:46] LABS: Anion Gap 11.2 mEq/L (5-15); Potassium 3.2 mmoL/L (3.5-5.1)
--- NOTE | 2018-03-11 11:03 | Pharmacy Consult Notes ---
- Pharmacy Consult Date: 03/11/18 Time: 11:02 Referring provider: DR. KELLER Reason for Consult:: VANCOMYCIN DOSING AND TROUGH LEVEL Allergies and ADEs:: Allergies Allergy/AdvReac Type Severity Reaction Status Date / Time pregabalin [From LYRICA] Allergy Unknown Verified 03/09/18 06:24 Home Medications:: Home Medications Medication Instructions Recorded Confirmed Type acetaminophen 500 mg tablet 500 mg PO Q4HP PRN 12/31/17 03/09/18 History allopurinol 100 mg tablet 100 mg PO DAILY 12/31/17 03/09/18 History aripiprazole 10 mg tablet 10 mg PO HS 12/31/17 03/09/18 History ascorbic acid (vitamin C) 500 mg 500 mg PO BID 12/31/17 03/09/18 History capsule carbidopa 25 mg-levodopa 100 mg 2 tab PO QID 12/31/17 03/09/18 History tablet carvedilol 6.25 mg tablet 6.25 mg PO BID 12/31/17 03/09/18 History cholecalciferol (vitamin D3) 2,000 2,000 unit PO DAILY 12/31/17 03/09/18 History unit capsule diazepam 5 mg tablet 5 mg PO BID tab 12/31/17 03/09/18 History duloxetine 60 mg capsule,delayed 90 mg PO DAILY 12/31/17 03/09/18 History release gabapentin 400 mg capsule 400 mg PO TID 12/31/17 03/09/18 History hydrocodone 10 mg-acetaminophen 1 tab PO Q8H tab 12/31/17 03/09/18 History 325 mg tablet insulin U-100 regular human 100 0 unit SUB-Q ACHS 12/31/17 03/09/18 History unit/mL injection solution ondansetron HCl 4 mg tablet 4 mg PO Q8HP PRN 12/31/17 03/09/18 History polyethylene glycol 3350 17 17 g PO DAILY each 12/31/17 03/09/18 History gram/dose oral powder simvastatin 40 mg tablet 40 mg PO HS 12/31/17 03/09/18 History tamsulosin 0.4 mg capsule 0.4 mg PO HS 12/31/17 03/09/18 History Aspirin [Aspirin 81mg chewable 81 mg PO DAILY 03/09/18 03/09/18 History tab] Bisacodyl [Bisacodyl 10mg Supp] 10 mg RC DAILYP PRN 03/09/18 03/09/18 History Clopidogrel Bisulfate [Plavix 75mg 75 mg PO DAILY 03/09/18 03/09/18 History Tab] Fluticasone Propionate [Flonase 1 spr NS DAILY 03/09/18 03/09/18 History 50mcg nasal spray 16gm] Hydralazine HCl [Hydralazine HCl 12.5 mg PO TID 03/09/18 03/09/18 History 25mg Tablet] Isosorbide Dinitrate 10 mg PO TID 03/09/18 03/09/18 History Lactulose [Lactulose 10gm/15ml 20 gm PO BID 03/09/18 03/09/18 History Oral Soln] Polyvinyl Alcohol [Liquitears] 1 drop OP BIDP PRN 03/09/18 03/09/18 History Sennosides/Docusate Sodium 1 tab PO DAILY 03/09/18 03/09/18 History [Docusate Sodium-Senna Tablet] Height: 1.83 m Weight: 88.082 kg Laboratory Results:: Laboratory Results - last 24 hr 03/10/18 11:25: POC Glucose 202 H 03/10/18 16:36: POC Glucose 201 H 03/10/18 23:54: POC Glucose 240 H 03/11/18 05:47: POC Glucose 215 H 03/11/18 06:15: Specimen Source Right radial, O2 % 40, ABG pH 7.42, ABG pCO2 39.0, ABG pO2 93.2, ABG HCO3 24.6, ABG Total CO2 25.8, ABG O2 Saturation 97, ABG Base Excess 0.1, Cristino Test Patient unable, Tidal Volume Cpap 480, PEEP 5 03/11/18 09:30: Vancomycin Trough 19.4 03/11/18 09:30: Sodium 147 H, Potassium 3.2 L, Chloride 110 H, Carbon Dioxide 29 , Anion Gap 11.2, BUN 38 H D, Creatinine 1.09, Estimated Creat Clear 92, Estimated GFR 69, Est GFR ( Amer) 84, Glucose 195 H 03/11/18 10:33: WBC 18.6 H, RBC 3.44 L, Hgb 9.8 L, Hct 31.2 L, MCV 90.4, MCH 28.3, MCHC 31.3 L, RDW 13.9, Plt Count 269, MPV 9.8, Neut % (Auto) 90.4 H, Lymph % (Auto) 5.0 L, [place] % (Auto) 4.3, Eos % (Auto) 0.1, Baso % (Auto) 0.1, Neut # (Auto) 16.8 H, Lymph # (Auto) 0.9, [place] # (Auto) 0.8, Eos # (Auto) 0.0, Baso # (Auto) 0.0 Medical History: Reports:: Anxiety, Depression, Diabetes Mellitus Type 2, Hyperlipidemia, Hypertension, MRSA, Peripheral Vascular Disease Assessment and Plan (1) HCAP (healthcare-associated pneumonia) Current visit: Yes Status: Acute Category: Medical Code(s): J18.9 - Pneumonia, unspecified organism (2) Ileus Current visit: Yes Status: Acute Category: Medical Code(s): K56.7 - Ileus , unspecified (3) Cholelithiasis Current visit: Yes Status: Acute Qualifiers: Cholelithiasis location: bile duct Cholecystitis presence: without cholecystitis Biliary obstruction: without biliary obstruction Qualified Code(s): K80.50 - Calculus of bile duct without cholangitis or cholecystitis without obstruction Category: Medical Code(s): K80.20 - Calculus of gallbladder without cholecystitis without obstruction (4) Renal insufficiency Current visit: Yes Status: Acute Category: Medical Code(s): N28.9 - Disorder of kidney and ureter, unspecified (5) Respiratory failure Current visit: Yes Status: Acute Category: Medical Code(s): J96.90 - Respiratory failure, unspecified, unspecified whether with hypoxia or hypercapnia (6) Staphylococcus aureus bacteremia Current visit: Yes Status: Acute Category: Medical Code(s): R78.81 - Bacteremia - Assessment and plan all Dx Assessment and Plan for all problems:: BASED ON PATIENT FACTORS, RECOMMEND VANCOMYCIN 1500 MG Q12H. VANCOMYCIN TOUGH LEVEL THIS MORNING IS 19.4. RECOMMEND CHANGING VANCOMYCIN TO 1750 MG IV Q18H. PHARMACY WILL CONTINUE TO MONITOR DAILY AND ADJUST APPROPRIATE.
[2018-03-11 14:59] LABS: Lymphocytes % 7 % (10-50); Monocytes % 3 % (2-9); Neutrophils % 90 % (42-76); Total Cells Counted 100
--- NOTE | 2018-03-12 10:33 | Progress Note ---
Internal Medicine - PN: Subj *Date: 03/12/18 *Time: 10:32 Exam Vital signs and Labs for Last 24 Hours: Temp Pulse Resp BP Pulse Ox 99.3 F 82 34 H 141/85 89 L 03/12/18 10:00 03/12/18 10:00 03/12/18 10:00 03/12/18 10:00 03/12/18 10:00 Laboratory Results - last 24 hr 03/11/18 09:30: Vancomycin Trough 19.4 03/11/18 09:30: Sodium 147 H, Potassium 3.2 L, Chloride 110 H, Carbon Dioxide 29 , Anion Gap 11.2, BUN 38 H D, Creatinine 1.09, Estimated Creat Clear 92, Estimated GFR 69, Est GFR ( Amer) 84, Glucose 195 H 03/11/18 10:33: WBC 18.6 H, RBC 3.44 L, Hgb 9.8 L, Hct 31.2 L, MCV 90.4, MCH 28.3, MCHC 31.3 L, RDW 13.9, Plt Count 269, MPV 9.8, Neut % (Auto) 90.4 H, Lymph % (Auto) 5.0 L, [place] % (Auto) 4.3, Eos % (Auto) 0.1, Baso % (Auto) 0.1, Neut # (Auto) 16.8 H, Lymph # (Auto) 0.9, [place] # (Auto) 0.8, Eos # (Auto) 0.0, Baso # (Auto) 0.0, Total Counted 100, Neutrophils % (Manual) 90 H, Lymphocytes % (Manual) 7 L, Monocytes % (Manual) 3, Platelet Estimate Normal 03/11/18 11:56: POC Glucose 192 H 03/11/18 17:03: POC Glucose 258 H 03/11/18 19:52: POC Glucose 257 H 03/12/18 05:49: POC Glucose 233 H I & O for Last 24 hours: Intake & Output 03/09/18 03/10/18 03/11/18 03/12/18 23:59 23:59 23:59 23:59 Intake Total 2626 / 4126 2102 / 2102 2761 / 2761 882 / 882 Output Total 1950 / 1950 1681 / 1681 2665 / 2665 Balance 676 / 2176 421 / 421 96 / 96 882 / 882 Weight 86.353 kg 88.082 kg 89.528 kg Microbiology Reports for the Last 24 Hours: Microbiology 03/09/18 14:50 Sputum - Expectorated Sputum Gram Stain - Final 03/09/18 14:50 Sputum - Expectorated Sputum Sputum Culture - Preliminary Gram Negative Rods Assessment and Plan (1) HCAP (healthcare-associated pneumonia) Current visit: Yes Status: Acute Category: Medical Code(s): J18.9 - Pneumonia, unspecified organism (2) Ileus Current visit: Yes Status: Acute Category: Medical Code(s): K56.7 - Ileus , unspecified (3) Cholelithiasis Current visit: Yes Status: Acute Qualifiers: Cholelithiasis location: bile duct Cholecystitis presence: without cholecystitis Biliary obstruction: without biliary obstruction Qualified Code(s): K80.50 - Calculus of bile duct without cholangitis or cholecystitis without obstruction Category: Medical Code(s): K80.20 - Calculus of gallbladder without cholecystitis without obstruction (4) Renal insufficiency Current visit: Yes Status: Acute Category: Medical Code(s): N28.9 - Disorder of kidney and ureter, unspecified (5) Respiratory failure Current visit: Yes Status: Acute Category: Medical Code(s): J96.90 - Respiratory failure, unspecified, unspecified whether with hypoxia or hypercapnia (6) Staphylococcus aureus bacteremia Current visit: Yes Status: Acute Category: Medical Code(s): R78.81 - Bacteremia The patient's infection will respond to the chosen ABx?: Yes Is the patient receiving the right drug, dose, and route?: Yes Could a more targeted ABx be ordered?: No (RECOMMENDED PO LEVAQUIN AND VANC AT D /C)
--- NOTE | 2018-03-12 17:12 | Progress Note ---
Internal Medicine - PN: Subj *Date: 03/12/18 *Time: 17:10 Interval history: doing better - has pos blood culture and will continue abx with pic line at ecf Exam Vital signs and Labs for Last 24 Hours: Temp Pulse Resp BP Pulse Ox 99.0 F 88 28 H 166/63 93 L 03/12/18 12:00 03/12/18 12:00 03/12/18 12:00 03/12/18 12:00 03/12/18 15:02 Laboratory Results - last 24 hr 03/11/18 11:56: POC Glucose 192 H 03/11/18 17:03: POC Glucose 258 H 03/11/18 19:52: POC Glucose 257 H 03/12/18 05:49: POC Glucose 233 H 03/12/18 11:29: POC Glucose 226 H I & O for Last 24 hours: Intake & Output 03/10/18 03/11/18 03/12/18 03/13/18 11:59 11:59 11:59 11:59 Intake Total 3773 / 3773 2187 / 2187 2411 / 2411 Output Total 2941 / 2941 1955 / 1955 1400 / 1400 Balance 832 / 832 232 / 232 1011 / 1011 Weight 190 lb 6 oz 194 lb 3 oz 197 lb 6 oz Microbiology Reports for the Last 24 Hours: Microbiology 03/09/18 14:50 Sputum - Expectorated Sputum Gram Stain - Final 03/09/18 14:50 Sputum - Expectorated Sputum Sputum Culture - Preliminary Gram Negative Rods - Constitutional no acute distress - *Routine HEENT Exam Head: Present: normocephalic Eye: Present: PERRL ENT: Present: mucous membranes dry - *Routine Neck Exam Absent: JVD - *Routine Respiratory Exam Present: decreased breath sounds - *Routine Cardiovascular Exam Present: RRR, murmur - *Routine Abdominal Exam Present: soft - *Routine Extremities Exam Present: edema. Absent: calf tenderness - *Routine Skin Exam Present: intact - *Routine Neurological Exam Present: alert at baseline with no focal changes - Routine Psychiatric Exam Present: normal affect Assessment and Plan (1) HCAP (healthcare-associated pneumonia) Current visit: Yes Status: Acute Category: Medical Code(s): J18.9 - Pneumonia, unspecified organism (2) Ileus Current visit: Yes Status: Acute Category: Medical Code(s): K56.7 - Ileus , unspecified (3) Cholelithiasis Current visit: Yes Status: Acute Qualifiers: Cholelithiasis location: bile duct Cholecystitis presence: without cholecystitis Biliary obstruction: without biliary obstruction Qualified Code(s): K80.50 - Calculus of bile duct without cholangitis or cholecystitis without obstruction Category: Medical Code(s): K80.20 - Calculus of gallbladder without cholecystitis without obstruction (4) Renal insufficiency Current visit: Yes Status: Acute Category: Medical Code(s): N28.9 - Disorder of kidney and ureter, unspecified (5) Respiratory failure Current visit: Yes Status: Acute Category: Medical Code(s): J96.90 - Respiratory failure, unspecified, unspecified whether with hypoxia or hypercapnia (6) Staphylococcus aureus bacteremia Current visit: Yes Status: Acute Category: Medical Code(s): R78.81 - Bacteremia
[2018-03-12 18:03] LABS: Basophils % 0.1 % (0.1-2.0); Eosinophils % 0.2 % (0.1-12.0); Hematocrit 31.6 % (42.0-52.0); Hemoglobin 9.8 g/dL (14.1-18.0); Lymphocytes # 1.5 K/mm3 (0.7-4.5); Lymphocytes % 7.8 K/mm3 (10-50); Mean Corpuscular HGB Conc 31.1 g/dL (31.8-35.4); Mean Corpuscular Hemoglobin 27.8 pg (27.0-31.2); Mean Corpuscular Volume 89.4 fl (80-94); Mean Platelet Volume 9.5 fl (7.4-10.4); Monocytes # 1.1 K/mm3 (0.1-1.0); Monocytes % 5.8 % (1.7-9.3); Neutrophils # 16.4 K/mm3 (1.8-7.8); Platelet Count 297 K/mm3 (142-424); Red Blood Count 3.53 M/mm3 (4.60-6.20); Red Cell Distribution Width 13.8 % (11.5-17.5); White Blood Count 19.1 K/mm3 (4.8-10.8)
[2018-03-12 18:23] LABS: Anion Gap 10.5 mEq/L (5-15)
[2018-03-12 18:25] LABS: Potassium 2.5 mmoL/L (3.5-5.1)
[2018-03-12 18:47] LABS: Eosinophils % 1 % (0-3); Hypochromasia 1+; Lymphocytes % 12 % (10-50); Monocytes % 2 % (2-9); Neutrophils % 83 % (42-76); Rouleaux 2+; Total Cells Counted 100
[2018-03-13 01:40] LABS: ABG Base Excess 6.9 mmol/L (-2.4-2.3); ABG HCO3 30.3 mmhg (22.0-26.0); ABG Oxygen Saturation 90 % (90-100); ABG PCO2 40.9 mmhg (35.0-45.0); ABG PH 7.49 mmol/L (7.35-7.45); ABG PO2 51.8 mmhg (80-100); ABG TCO2 31.5 mmhg (23-27)
[2018-03-13 01:41] LABS: Allen's Test Patient Unable; Oxygen 100% %
--- NOTE | 2018-03-13 04:38 | Progress Note ---
Internal Medicine - PN: Subj *Date: 03/13/18 *Time: 05:45 Interval history: pt with dec po2 this am with no gross change in exam and cxr /ct for pul emoli were non avute except for pneumonia Exam Vital signs and Labs for Last 24 Hours: Temp Pulse Resp BP Pulse Ox 99.3 F 85 38 H 111/56 99 03/13/18 02:00 03/13/18 02:00 03/13/18 02:00 03/13/18 02:00 03/13/18 02:00 Laboratory Results - last 24 hr 03/12/18 05:49: POC Glucose 233 H 03/12/18 11:29: POC Glucose 226 H 03/12/18 17:42: WBC 19.1 H, RBC 3.53 L, Hgb 9.8 L, Hct 31.6 L, MCV 89.4, MCH 27.8, MCHC 31.1 L, RDW 13.8, Plt Count 297, MPV 9.5, Neut % (Auto) 86.0 H, Lymph % (Auto) 7.8 L, [place] % (Auto) 5.8, Eos % (Auto) 0.2, Baso % (Auto) 0.1, Neut # (Auto) 16.4 H, Lymph # (Auto) 1.5, [place] # (Auto) 1.1 H, Eos # (Auto) 0.0 , Baso # (Auto) 0.0, Total Counted 100, Neutrophils % (Manual) 83 H, Band Neutrophils % 2.0, Lymphocytes % (Manual) 12, Monocytes % (Manual) 2, Eosinophils % (Manual) 1, Platelet Estimate Normal, Hypochromasia 1+, Rouleaux 2 + 03/12/18 17:42: Sodium 141, Potassium 2.5 L* D, Chloride 103, Carbon Dioxide 30 , Anion Gap 10.5, BUN 17 D, Creatinine 1.01, Estimated Creat Clear 101, Estimated GFR 76, Est GFR ( Amer) 92, Glucose 255 H 03/12/18 20:44: POC Glucose 308 H* 03/13/18 01:37: Specimen Source Right radial, O2 % 100%, ABG pH 7.49 H, ABG pCO2 40.9, ABG pO2 51.8 L, ABG HCO3 30.3 H, ABG Total CO2 31.5 H, ABG O2 Saturation 90, ABG Base Excess 6.9 H, Cristino Test Patient unable I & O for Last 24 hours: Intake & Output 03/10/18 03/11/18 03/12/18 03/13/18 11:59 11:59 11:59 11:59 Intake Total 3773 / 3773 2187 / 2187 2411 / 2411 170 / 170 Output Total 2941 / 2941 1955 / 1955 1400 / 1400 3600 / 3600 Balance 832 / 832 232 / 232 1011 / 1011 -3430 / -3430 Weight 190 lb 6 oz 194 lb 3 oz 197 lb 6 oz Microbiology Reports for the Last 24 Hours: Microbiology 03/09/18 14:50 Sputum - Expectorated Sputum Gram Stain - Final 03/09/18 14:50 Sputum - Expectorated Sputum Sputum Culture - Preliminary Gram Negative Rods - Constitutional no acute distress - *Routine HEENT Exam Head: Present: normocephalic Eye: Present: PERRL ENT: Present: mucous membranes dry - *Routine Neck Exam Absent: JVD - *Routine Respiratory Exam Present: decreased breath sounds. Absent: respiratory distress - *Routine Cardiovascular Exam Present: RRR, murmur, S4 - *Routine Abdominal Exam Present: soft - *Routine Extremities Exam Absent: calf tenderness - *Routine Skin Exam Present: intact - *Routine Neurological Exam Present: alert (no focal changes ), CN II-XII intact Assessment and Plan (1) HCAP (healthcare-associated pneumonia) Current visit: Yes Status: Acute Category: Medical Code(s): J18.9 - Pneumonia, unspecified organism (2) Ileus Current visit: Yes Status: Acute Category: Medical Code(s): K56.7 - Ileus , unspecified (3) Cholelithiasis Current visit: Yes Status: Acute Qualifiers: Cholelithiasis location: bile duct Cholecystitis presence: without cholecystitis Biliary obstruction: without biliary obstruction Qualified Code(s): K80.50 - Calculus of bile duct without cholangitis or cholecystitis without obstruction Category: Medical Code(s): K80.20 - Calculus of gallbladder without cholecystitis without obstruction (4) Renal insufficiency Current visit: Yes Status: Acute Category: Medical Code(s): N28.9 - Disorder of kidney and ureter, unspecified (5) Respiratory failure Current visit: Yes Status: Acute Category: Medical Code(s): J96.90 - Respiratory failure, unspecified, unspecified whether with hypoxia or hypercapnia (6) Staphylococcus aureus bacteremia Current visit: Yes Status: Acute Category: Medical Code(s): R78.81 - Bacteremia
--- NOTE | 2018-03-14 08:42 | Progress Note ---
Internal Medicine - PN: Subj *Date: 03/14/18 *Time: 08:39 Interval history: looks better with dec o2 requirements and labs pending - only on vanc Exam Vital signs and Labs for Last 24 Hours: Temp Pulse Resp BP Pulse Ox 97.8 F 81 31 H 113/64 93 L 03/14/18 04:00 03/14/18 06:00 03/14/18 06:00 03/14/18 06:00 03/14/18 05:39 Laboratory Results - last 24 hr 03/13/18 21:34: POC Glucose 235 H 03/14/18 06:02: POC Glucose 233 H I & O for Last 24 hours: Intake & Output 03/11/18 03/12/18 03/13/18 03/14/18 11:59 11:59 11:59 11:59 Intake Total 2187 / 2187 2511 / 2511 410 / 410 1670 / 1670 Output Total 1955 / 1955 1400 / 1400 3600 / 3600 1950 / 1950 Balance 232 / 232 1111 / 1111 -3190 / -3190 -280 / -280 Weight 194 lb 3 oz 197 lb 6 oz 196 lb 7 oz 200 lb Microbiology Reports for the Last 24 Hours: Microbiology 03/09/18 14:50 Sputum - Expectorated Sputum Gram Stain - Final 03/09/18 14:50 Sputum - Expectorated Sputum Sputum Culture - Final Pseudomonas putida - Constitutional no acute distress - *Routine HEENT Exam Head: Present: normocephalic Eye: Present: EOMI, PERRL ENT: Present: mucous membranes dry - *Routine Respiratory Exam Present: decreased breath sounds - *Routine Cardiovascular Exam Present: RRR, murmur - *Routine Abdominal Exam Present: soft - *Routine Extremities Exam Absent: calf tenderness - *Routine Skin Exam Present: intact - *Routine Neurological Exam no focal changes Assessment and Plan (1) HCAP (healthcare-associated pneumonia) Current visit: Yes Status: Acute Category: Medical Code(s): J18.9 - Pneumonia, unspecified organism (2) Ileus Current visit: Yes Status: Acute Category: Medical Code(s): K56.7 - Ileus , unspecified (3) Cholelithiasis Current visit: Yes Status: Acute Qualifiers: Cholelithiasis location: bile duct Cholecystitis presence: without cholecystitis Biliary obstruction: without biliary obstruction Qualified Code(s): K80.50 - Calculus of bile duct without cholangitis or cholecystitis without obstruction Category: Medical Code(s): K80.20 - Calculus of gallbladder without cholecystitis without obstruction (4) Renal insufficiency Current visit: Yes Status: Acute Category: Medical Code(s): N28.9 - Disorder of kidney and ureter, unspecified (5) Respiratory failure Current visit: Yes Status: Acute Category: Medical Code(s): J96.90 - Respiratory failure, unspecified, unspecified whether with hypoxia or hypercapnia (6) Staphylococcus aureus bacteremia Current visit: Yes Status: Acute Category: Medical Code(s): R78.81 - Bacteremia
[2018-03-14 08:59] LABS: Basophils # 0.1 K/mm3 (0-0.2); Basophils % 0.5 % (0.1-2.0); Eosinophils # 0.2 K/mm3 (0.0-0.4); Eosinophils % 1.4 % (0.1-12.0); Hematocrit 28.8 % (42.0-52.0); Hemoglobin 9.4 g/dL (14.1-18.0); Lymphocytes # 1.5 K/mm3 (0.7-4.5); Mean Corpuscular HGB Conc 32.7 g/dL (31.8-35.4); Mean Corpuscular Hemoglobin 28.4 pg (27.0-31.2); Mean Corpuscular Volume 86.9 fl (80-94); Mean Platelet Volume 9.4 fl (7.4-10.4); Monocytes % 6.9 % (1.7-9.3); Neutrophils # 11.2 K/mm3 (1.8-7.8); Neutrophils % 80.2 % (37.0-80.0); Platelet Count 262 K/mm3 (142-424); Red Blood Count 3.32 M/mm3 (4.60-6.20); Red Cell Distribution Width 13.7 % (11.5-17.5)
[2018-03-14 09:11] LABS: Anion Gap 9.5 mEq/L (5-15)
[2018-03-14 09:14] LABS: Potassium 2.5 mmoL/L (3.5-5.1)
[2018-03-14 18:26] LABS: Anion Gap 7.9 mEq/L (5-15)
[2018-03-14 18:30] LABS: Potassium 2.9 mmoL/L (3.5-5.1)
--- NOTE | 2018-03-15 10:30 | Pharmacy Consult Notes ---
- Pharmacy Consult Date: 03/15/18 Time: 10:28 Referring provider: DR. KELLER Reason for Consult:: VANCOMYCIN TROUGH LEVEL Allergies and ADEs:: Allergies Allergy/AdvReac Type Severity Reaction Status Date / Time pregabalin [From LYRICA] Allergy Unknown Verified 03/09/18 06:24 Home Medications:: Home Medications Medication Instructions Recorded Confirmed Type acetaminophen 500 mg tablet 500 mg PO Q4HP PRN 12/31/17 03/09/18 History allopurinol 100 mg tablet 100 mg PO DAILY 12/31/17 03/09/18 History aripiprazole 10 mg tablet 10 mg PO HS 12/31/17 03/09/18 History ascorbic acid (vitamin C) 500 mg 500 mg PO BID 12/31/17 03/09/18 History capsule carbidopa 25 mg-levodopa 100 mg 2 tab PO QID 12/31/17 03/09/18 History tablet carvedilol 6.25 mg tablet 6.25 mg PO BID 12/31/17 03/09/18 History cholecalciferol (vitamin D3) 2,000 2,000 unit PO DAILY 12/31/17 03/09/18 History unit capsule diazepam 5 mg tablet 5 mg PO BID tab 12/31/17 03/09/18 History duloxetine 60 mg capsule,delayed 90 mg PO DAILY 12/31/17 03/09/18 History release gabapentin 400 mg capsule 400 mg PO TID 12/31/17 03/09/18 History hydrocodone 10 mg-acetaminophen 1 tab PO Q8H tab 12/31/17 03/09/18 History 325 mg tablet insulin U-100 regular human 100 0 unit SUB-Q ACHS 12/31/17 03/09/18 History unit/mL injection solution ondansetron HCl 4 mg tablet 4 mg PO Q8HP PRN 12/31/17 03/09/18 History polyethylene glycol 3350 17 17 g PO DAILY each 12/31/17 03/09/18 History gram/dose oral powder simvastatin 40 mg tablet 40 mg PO HS 12/31/17 03/09/18 History tamsulosin 0.4 mg capsule 0.4 mg PO HS 12/31/17 03/09/18 History Aspirin [Aspirin 81mg chewable 81 mg PO DAILY 03/09/18 03/09/18 History tab] Bisacodyl [Bisacodyl 10mg Supp] 10 mg RC DAILYP PRN 03/09/18 03/09/18 History Clopidogrel Bisulfate [Plavix 75mg 75 mg PO DAILY 03/09/18 03/09/18 History Tab] Fluticasone Propionate [Flonase 1 spr NS DAILY 03/09/18 03/09/18 History 50mcg nasal spray 16gm] Hydralazine HCl [Hydralazine HCl 12.5 mg PO TID 03/09/18 03/09/18 History 25mg Tablet] Isosorbide Dinitrate 10 mg PO TID 03/09/18 03/09/18 History Lactulose [Lactulose 10gm/15ml 20 gm PO BID 03/09/18 03/09/18 History Oral Soln] Polyvinyl Alcohol [Liquitears] 1 drop OP BIDP PRN 03/09/18 03/09/18 History Sennosides/Docusate Sodium 1 tab PO DAILY 03/09/18 03/09/18 History [Docusate Sodium-Senna Tablet] Height: 1.83 m Weight: 90.718 kg Laboratory Results:: Laboratory Results - last 24 hr 03/12/18 17:16: POC Glucose 237 H 03/13/18 12:20: POC Glucose 253 H 03/13/18 16:40: POC Glucose 205 H 03/14/18 11:50: POC Glucose 226 H 03/14/18 15:30: Vancomycin Trough 20.8 H 03/14/18 16:56: POC Glucose 188 H 03/14/18 18:05: Sodium 138, Potassium 2.9 L*, Chloride 101, Carbon Dioxide 32, Anion Gap 7.9, BUN 11, Creatinine 0.87, Estimated Creat Clear 119, Estimated GFR 90, Est GFR ( Amer) 109, Glucose 217 H 03/14/18 20:06: POC Glucose 198 H 03/15/18 02:30: Potassium 2.8 L* 03/15/18 06:30: POC Glucose 186 H 03/15/18 07:47: Potassium 3.3 L Medical History: Reports:: Anxiety, Depression, Diabetes Mellitus Type 2, Hyperlipidemia, Hypertension, MRSA, Peripheral Vascular Disease Assessment and Plan (1) HCAP (healthcare-associated pneumonia) Current visit: Yes Status: Acute Category: Medical Code(s): J18.9 - Pneumonia, unspecified organism (2) Ileus Current visit: Yes Status: Acute Category: Medical Code(s): K56.7 - Ileus , unspecified (3) Cholelithiasis Current visit: Yes Status: Acute Qualifiers: Cholelithiasis location: bile duct Cholecystitis presence: without cholecystitis Biliary obstruction: without biliary obstruction Qualified Code(s): K80.50 - Calculus of bile duct without cholangitis or cholecystitis without obstruction Category: Medical Code(s): K80.20 - Calculus of gallbladder without cholecystitis without obstruction (4) Renal insufficiency Current visit: Yes Status: Acute Category: Medical Code(s): N28.9 - Disorder of kidney and ureter, unspecified (5) Respiratory failure Current visit: Yes Status: Acute Category: Medical Code(s): J96.90 - Respiratory failure, unspecified, unspecified whether with hypoxia or hypercapnia (6) Staphylococcus aureus bacteremia Current visit: Yes Status: Acute Category: Medical Code(s): R78.81 - Bacteremia - Assessment and plan all Dx Assessment and Plan for all problems:: BASED ON VANCOMYCIN TROUGH LEVEL AND PATIENT FACTORS, RECOMMEND CHANGING INTERVAL TO VANCOMYCIN 1750 MG IV Q24H. PHARMACY WILL CONTINUE TO MONITOR DAILY AND ADJUST APPROPRIATE.
--- NOTE | 2018-03-15 13:22 | Discharge Summary ---
General - General Admission date: 03/09/18 Discharge date: 03/15/18 HPI HPI: Patient is a 57-year-old white male with history of diabetes, coronary artery disease, Parkinson's, left ventricular dysfunction, severe atherosclerotic disease on Plavix who is a intermediate patient. He was brought by EMS to the emergency department early this morning with reported coffee-ground emesis. He was found to have low oxygen saturations. He underwent CT scan which revealed pneumonia. Other findings included "ileus" and gallstones. He was admitted for inpatient management and surgical consultation was obtained. Patient is unable to provide any history. Hospital Course Hospital Course: cta: IMPRESSION: 1. No evidence of PE. 2. Bilateral diffuse pneumonic infiltrates with more dense consolidation left lower lobe and there may be a small reactive pleural effusion at the left base. chest x ray:IMPRESSION: Possible new finding of a small left pleural effusion, minimal infiltrate seen at the left base on the previous study is not as well seen on today's study likely due to the poor inspiration Discharge back to [facility] [place] continue vancomycin 1.5 g every 24 hours. Have pharmacy monitor labs and adjust dose Objective Vital signs: Temp Pulse Resp BP Pulse Ox 98.0 F 91 H 29 H 117/66 92 L 03/15/18 08:00 03/15/18 09:00 03/15/18 09:00 03/15/18 09:00 03/15/18 09:00 - *Routine HEENT Exam Head: Present: normocephalic Eye: Present: PERRL ENT: Present: mucous membranes moist - *Routine Neck Exam Present: supple Comments: Good range of motion due to chronic condition - *Routine Respiratory Exam Present: diminished air movement - *Routine Cardiovascular Exam Present: RRR, murmur - *Routine Abdominal Exam Present: soft, normoactive bowel sounds - *Routine Extremities Exam Present: full ROM - *Routine Skin Exam Present: intact - *Routine Neurological Exam Present: alert - Routine Psychiatric Exam Present: normal affect - Detailed Eye Exam Eyelids: Left normal inspection Results Labs on day of discharge: Labs from last 24 hours 03/15/18 03/15/18 03/15/18 12:25 07:47 06:30 Sodium Potassium 3.3 L Chloride Carbon Dioxide Anion Gap BUN Creatinine Estimated Creat Clear Estimated GFR Est GFR ( Amer) Glucose POC Glucose 211 H 186 H Vancomycin Trough 03/15/18 03/14/18 03/14/18 02:30 20:06 18:05 Sodium 138 Potassium 2.8 L* 2.9 L* Chloride 101 Carbon Dioxide 32 Anion Gap 7.9 BUN 11 Creatinine 0.87 Estimated Creat Clear 119 Estimated GFR 90 Est GFR ( Amer) 109 Glucose 217 H POC Glucose 198 H Vancomycin Trough 03/14/18 03/14/18 03/14/18 16:56 15:30 11:50 Sodium Potassium Chloride Carbon Dioxide Anion Gap BUN Creatinine Estimated Creat Clear Estimated GFR Est GFR ( Amer) Glucose POC Glucose 188 H 226 H Vancomycin Trough 20.8 H 03/13/18 03/13/18 03/12/18 16:40 12:20 17:16 Sodium Potassium Chloride Carbon Dioxide Anion Gap BUN Creatinine Estimated Creat Clear Estimated GFR Est GFR ( Amer) Glucose POC Glucose 205 H 253 H 237 H Vancomycin Trough Discharge Plan - Patient Discharge Instructions ACTIVITY: Continue current activity DIET: continue same diet Patient Instructions: Pneumonia-Adult, Kidney Failure, Gallstones, Coronary Artery Disease, Ileus, Peripheral Artery Disease, DI for Shortness of Breath, Respiratory Failure - Follow up Plan Unknown provider or service follow up:: 03/15/18 13:27 Call PCP have them evaluate patient as soon as possible Home Medications: Home Medications Medication Instructions Recorded Confirmed Type acetaminophen 500 mg tablet 500 mg PO Q4HP PRN 12/31/17 03/09/18 History allopurinol 100 mg tablet 100 mg PO DAILY 12/31/17 03/09/18 History aripiprazole 10 mg tablet 10 mg PO HS 12/31/17 03/09/18 History ascorbic acid (vitamin C) 500 mg 500 mg PO BID 12/31/17 03/09/18 History capsule carbidopa 25 mg-levodopa 100 mg 2 tab PO QID 12/31/17 03/09/18 History tablet carvedilol 6.25 mg tablet 6.25 mg PO BID 12/31/17 03/09/18 History cholecalciferol (vitamin D3) 2,000 2,000 unit PO DAILY 12/31/17 03/09/18 History unit capsule diazepam 5 mg tablet 5 mg PO BID tab 12/31/17 03/09/18 History duloxetine 60 mg capsule,delayed 90 mg PO DAILY 12/31/17 03/09/18 History release gabapentin 400 mg capsule 400 mg PO TID 12/31/17 03/09/18 History hydrocodone 10 mg-acetaminophen 1 tab PO Q8H tab 12/31/17 03/09/18 History 325 mg tablet insulin U-100 regular human 100 0 unit SUB-Q ACHS 12/31/17 03/09/18 History unit/mL injection solution ondansetron HCl 4 mg tablet 4 mg PO Q8HP PRN 12/31/17 03/09/18 History polyethylene glycol 3350 17 17 g PO DAILY each 12/31/17 03/09/18 History gram/dose oral powder simvastatin 40 mg tablet 40 mg PO HS 12/31/17 03/09/18 History tamsulosin 0.4 mg capsule 0.4 mg PO HS 12/31/17 03/09/18 History Aspirin [Aspirin 81mg chewable 81 mg PO DAILY 03/09/18 03/09/18 History tab] Bisacodyl [Bisacodyl 10mg Supp] 10 mg RC DAILYP PRN 03/09/18 03/09/18 History Clopidogrel Bisulfate [Plavix 75mg 75 mg PO DAILY 03/09/18 03/09/18 History Tab] Fluticasone Propionate [Flonase 1 spr NS DAILY 03/09/18 03/09/18 History 50mcg nasal spray 16gm] Hydralazine HCl [Hydralazine HCl 12.5 mg PO TID 03/09/18 03/09/18 History 25mg Tablet] Isosorbide Dinitrate 10 mg PO TID 03/09/18 03/09/18 History Lactulose [Lactulose 10gm/15ml 20 gm PO BID 03/09/18 03/09/18 History Oral Soln] Polyvinyl Alcohol [Liquitears] 1 drop OP BIDP PRN 03/09/18 03/09/18 History Sennosides/Docusate Sodium 1 tab PO DAILY 03/09/18 03/09/18 History [Docusate Sodium-Senna Tablet] Prescriptions/Medication Reconciliation: New Pantoprazole Sodium [Protonix 40mg tablet] 40 mg PO BID tablet. Vancomycin/0.9 % Sod Chloride [Vanco 1.5 gm/500 ml-0.9% NaCl] 1.5 gm IV CONSULT PHARMACY 8 Days #8 plast..bag Continue tamsulosin 0.4 mg capsule 0.4 mg PO HS ascorbic acid (vitamin C) 500 mg capsule 500 mg PO BID cholecalciferol (vitamin D3) 2,000 unit capsule 2,000 unit PO DAILY diazepam 5 mg tablet 5 mg PO BID tab duloxetine 60 mg capsule,delayed release 90 mg PO DAILY gabapentin 400 mg capsule 400 mg PO TID insulin U-100 regular human 100 unit/mL injection solution 0 unit SUB-Q ACHS hydrocodone 10 mg-acetaminophen 325 mg tablet 1 tab PO Q8H tab ondansetron HCl 4 mg tablet 4 mg PO Q8HP PRN PRN Reason: Nausea allopurinol 100 mg tablet 100 mg PO DAILY aripiprazole 10 mg tablet 10 mg PO HS carbidopa 25 mg-levodopa 100 mg tablet 2 tab PO QID acetaminophen 500 mg tablet 500 mg PO Q4HP PRN PRN Reason: Fever > 100.4 polyethylene glycol 3350 17 gram/dose oral powder 17 g PO DAILY each simvastatin 40 mg tablet 40 mg PO HS carvedilol 6.25 mg tablet 6.25 mg PO BID Polyvinyl Alcohol [Liquitears] 1 drop OP BIDP PRN PRN Reason: EYE PROBLEMS Bisacodyl [Bisacodyl 10mg Supp] 10 mg RC DAILYP PRN PRN Reason: Constipation Lactulose [Lactulose 10gm/15ml Oral Soln] 20 gm PO BID Isosorbide Dinitrate 10 mg PO TID Hydralazine HCl [Hydralazine HCl 25mg Tablet] 12.5 mg PO TID Clopidogrel Bisulfate [Plavix 75mg Tab] 75 mg PO DAILY Sennosides/Docusate Sodium [Docusate Sodium-Senna Tablet] 1 tab PO DAILY Fluticasone Propionate [Flonase 50mcg nasal spray 16gm] 1 spr NS DAILY Aspirin [Aspirin 81mg chewable tab] 81 mg PO DAILY
== END 2018-03-15 18:42 ==
LOC: 2ND 03:02 → ER 03:02 → 2ND 06:52 → ICU 03-10 18:13
PROVIDERS: ADMIT Emergency Medicine; ATTEND Emergency Medicine

== ENCOUNTER → 2018-03-18 17:52 | Outpatient (REF) | payer MEDICARE, MEDICAID, SELFPAY ==
[2018-03-18 18:27] LABS: Basophils # 0.1 K/mm3 (0-0.2); Basophils % 0.3 % (0.1-2.0); Eosinophils # 0.3 K/mm3 (0.0-0.4); Eosinophils % 2.1 % (0.1-12.0); Hematocrit 31.3 % (42.0-52.0); Hemoglobin 9.8 g/dL (14.1-18.0); Lymphocytes # 1.9 K/mm3 (0.7-4.5); Mean Corpuscular HGB Conc 31.3 g/dL (31.8-35.4); Mean Corpuscular Hemoglobin 27.8 pg (27.0-31.2); Mean Corpuscular Volume 88.9 fl (80-94); Mean Platelet Volume 8.5 fl (7.4-10.4); Monocytes # 0.6 K/mm3 (0.1-1.0); Monocytes % 3.7 % (1.7-9.3); Neutrophils # 13.1 K/mm3 (1.8-7.8); Platelet Count 507 K/mm3 (142-424); Red Blood Count 3.52 M/mm3 (4.60-6.20); Red Cell Distribution Width 14.4 % (11.5-17.5)
[2018-03-18 18:40] LABS: Alanine Aminotransferase 5 U/L (12-78); Albumin/Globulin Ratio 0.5 (1.1-1.8); Alkaline Phosphatase 72 U/L (46-116); Anion Gap 13.3 mEq/L (5-15); Aspartate Amino Transferase 16 U/L (15-37); Bilirubin,Total 0.3 mg/dL (0.2-1.0); Blood Urea Nitrogen 11 mg/dL (7-18); Calcium 8.1 mg/dL (8.5-10.1); Carbon Dioxide 28 mmol/L (21.0-32.0); Chloride 102 mmol/L (98-107); Creatinine,Serum 0.96 mg/dL (0.70-1.30); Estimated Glomerular Filt Rate 80 ml/min (>60); GFR (African American) 97 ML/MIN (>60); Globulin 4.1 gm/dl (1.3-3.2); Glucose 221 mg/dL (74-106); Potassium 4.3 mmoL/L (3.5-5.1); Sodium 139 mmol/L (136-145); Total Protein,Serum 6.1 gm/dL (6.4-8.2)
[2018-03-18 18:50] LABS: MANUAL DIFFERENTIAL MANUAL DIFFERENTIAL (MANUAL DIFF)
[2018-03-18 19:16] LABS: Eosinophils % 2 % (0-3); Lymphocytes % 11 % (10-50); Monocytes % 3 % (2-9); Neutrophils % 83 % (42-76); Total Cells Counted 100
[2018-03-18 19:17] LABS: Hypochromasia 1+; Platelet Estimate Marked Increase
== END ==
LOC: LAB 17:52
PROVIDERS: Visit Provider Internal Medicine
DX: J18.1 Lobar pneumonia, unspecified organism (principal); K56.7 Ileus, unspecified; N28.9 Disorder of kidney and ureter, unspecified; E11.9 Type 2 diabetes mellitus without complications; Z51.81 Encounter for therapeutic drug level monitoring
CPT/HCPCS: 80053; 80202; 85007; 85025

== ENCOUNTER → 2018-03-30 12:58 | Outpatient (REF) | payer MEDICARE, MEDICAID, SELFPAY | LOC: LAB 12:58 | PROVIDERS: Visit Provider Emergency Medicine | DX: A41.02 Sepsis due to Methicillin resistant Staphylococcus aureus (principal) | CPT/HCPCS: 87070; 87077; 87186; 87205 ==

== ENCOUNTER 2018-05-28 21:25 | Inpatient (IN) ==
[2018-05-28 21:40] LABS: Microscopic, Urine URINE MICROSCOPIC (MICROSCOPIC)
[2018-05-28 21:42] LABS: Appearance,Urine CLEAR (Clear); Bilirubin,Urine Negative (Negative); Blood, Urine Negative (Negative); Color,Urine YELLOW (Yellow); Glucose,Urine (UA) Negative (Negative); Ketones,Urine Negative (Negative); Leukocyte Esterase,Urine Negative (Negative); Protein,Urine Negative (Negative); Specific Gravity, Urine 1.015 (1.005-1.030); Urobilinogen,Urine 0.2 EU/dl (0.2)
--- NOTE | 2018-05-28 21:47 | Emergency Department Note ---
ED Disposition Clinical Impression: Healthcare-associated pneumonia Sepsis Qualifiers: Sepsis type: sepsis due to unspecified organism Qualified Code(s): A41.9 - Sepsis, unspecified organism Disposition: Still a Patient Condition on Discharge: Critical - Critical Care Critical Care Time: Yes Attestation: On 05/28/18, the high probability of a clinically significant, sudden or life threatening deterioration of the following system(s) required my full and direct attention, intervention and personal management. The time I documented below is in addition to time spent performing reported procedures but includes the following listed in this critical care notation. Total Critical Care Time: 40 Vital system(s) involved:: Shock (Septic) My critical care processes included: Assessment & monitoring of V/S, Initial and Re-exams, Data Review/Interpretation, Coordinating Care, Medication Orders and management, Documentation Medical Decision Making - [place] Inquiry Pt receiving controlled substance: No Vital Signs: 05/28/18 21:25 05/28/18 21:48 05/28/18 21:50 Temperature 102.9 F H 102.9 F H Temperature Source Rectal Rectal Rectal Pulse Rate [Right Radial] 130 H 128 H Respiratory Rate 20 18 Blood Pressure [Right Arm] 95/69 88/50 Blood Pressure Mean [Right Arm] 77 62 Blood Pressure Source [Right Arm] Blood Pressure Position [Right Arm] 02 Sat by Pulse Oximetry 90 L 99 Oxygen Delivery Method Nasal Cannula Nasal Cannula Oxygen Flow Rate (LPM) 3 3 05/28/18 22:01 05/28/18 22:18 Temperature Temperature Source Pulse Rate [Right Radial] 126 H 111 H Respiratory Rate Blood Pressure [Right Arm] 88/46 96/61 Blood Pressure Mean [Right Arm] 60 72 Blood Pressure Source [Right Arm] Automatic Cuff Automatic Cuff Blood Pressure Position [Right Arm] Supine Supine 02 Sat by Pulse Oximetry 96 100 Oxygen Delivery Method Nasal Cannula Oxygen Flow Rate (LPM) 3 - Lab Data Lab Results 05/28/18 21:35: Urine Color Yellow, Urine Appearance Clear, Urine pH 7.0, Ur Specific [place] 1.015, Urine Protein Negative, Urine Glucose (UA) Negative, Urine Ketones Negative, Urine Blood Negative, Urine Nitrate Negative, Urine Bilirubin Negative, Urine Urobilinogen 0.2, Ur Leukocyte Esterase Negative, Urine WBC 3-5, Ur Squamous Epith Cells 10-20 05/28/18 21:40: WBC 15.8 H, RBC 4.65, Hgb 12.2 L, Hct 39.8 L, MCV 85.6, MCH 26.3 L, MCHC 30.7 L, RDW 14.1, Plt Count 252, MPV 7.6, Neut % (Auto) 91.7 H, Lymph % (Auto) 3.4 L, [place] % (Auto) 4.2, Eos % (Auto) 0.6, Baso % (Auto) 0.1, Neut # (Auto) 14.5 H, Lymph # (Auto) 0.5 L, [place] # (Auto) 0.7, Eos # (Auto) 0.1 , Baso # (Auto) 0.0, Total Counted 100, Neutrophils % (Manual) 83 H, Band Neutrophils % 10.0 H, Lymphocytes % (Manual) 7 L, Platelet Estimate Normal, Hypochromasia 1+ 05/28/18 21:40: Sodium 137, Potassium 4.2, Chloride 101, Carbon Dioxide 31, Anion Gap 9.2, BUN 18, Creatinine 1.08, Estimated Creat Clear 99, Estimated GFR 70, Est GFR ( Amer) 85, Glucose 130 H, Calcium 8.9, Total Bilirubin 0.7, AST 11 L, ALT 7 L, Alkaline Phosphatase 88, Total Creatine Kinase 71, CK-MB (CK- 2) 1.2 D, CK-MB (CK-2) Rel Index 1.7, Troponin I < 0.02, Total Protein 8.0 D, Albumin 3.4, Globulin 4.6 H, Albumin/Globulin Ratio 0.7 L 05/28/18 21:40: Lactic Acid 1.4 Result diagrams: 05/28/18 21:40 05/28/18 21:40 Orders (Tests/Meds): ED MEDICATIONS Generic Name Dose Route Start Last Admin Trade Name Freq PRN Reason Stop Dose Admin Sodium Chloride 2,800 mls @ 1,400 mls/hr 05/28/18 21:32 05/28/18 21:48 Sod Chlor 0.9% 1000ml Bag 30 ml/kg infuse over 2 hr (2800 ml) 05/28/18 23: 31 1,400 mls/hr IV Administration .Q2H ONE Levofloxacin/Dextrose 750 mg in 150 mls @ 100 mls/hr 05/28/18 22:45 Levofloxacin 750mg/150ml Premix IV 06/11/18 22:44 Q24H RADHA Protocol Cefepime HCl 2 gm/ Sodium 100 mls @ 200 mls/hr 05/28/18 22:45 Chloride IV 06/11/18 22:44 Q12H RADHA Protocol Vancomycin HCl 1,750 mg/ 250 mls @ 125 mls/hr 05/28/18 22:47 Sodium Chloride IV 05/28/18 22:48 ONCE ONE Protocol Discontinued Medications Generic Name Dose Route Start Last Admin Trade Name Demetri PRN Reason Stop Dose Admin Acetaminophen 650 mg 05/28/18 21:32 05/28/18 21:48 Acetaminophen 650mg Suppository RC 05/28/18 21:33 650 mg ONCE ONE Administration Miscellaneous 1 each 05/28/18 22:31 Vancomycin Consult Request NOTAPPLIC 05/28/18 22:32 CONSULT PHARMACY ONE ORDERS Category Date Time Status XR chest portable Stat Exams 05/28/18 21:31 Taken Blood Culture Stat Micro 05/28/18 21:40 Received - Radiology Data #1 Image(s): Chest Image Reviewed: Yes I reviewed the patient's radiology image new airspace disease left base - ECG Data Tracing #1 EKG interpreted by Pb Hernandez MD: Rhythm: sinus tachycardia Rate: 129 [place]: Left Ectopy: none Conduction: normal ST Segment Changes: none T Wave Changes: none Q Waves: Inferior, anterior lateral Prior electrocardiagrams reviewed. No change from prior tracings. - Physician Consults Physician Consulted: Aki Hoover Time: 22:10 Reason -: Admission Comment/Response: Agrees to admit the patient to the hospital. We discussed the patient's clinical information, including history, exam, laboratory and radiology results and ED course. Per hospital procedure, I will write temporary bridge inpatient orders on the patient. Specific orders requested by the admitting physician: Continue antibiotics, sepsis treatment General Adult HPI - General Chief complaint: Fever Stated complaint: altered mental status Time Seen by Provider: 05/28/18 21:47 Mode of Arrival: EMS Limitations: Physical Limitations Description of Symptoms (Recalled from ER Triage Doc. by RN): snf reports altered mental status, fever, and difficulty arousing patient. - History of Present Illness HPI narrative: Patient is brought in by ambulance from [facility] with report of altered mental status and fever. The patient is awake, opens eyes and appears to try and mouth some words, but I cannot obtain any significant additional history from him. Reported temperature of 103 at the snf. correction staff reported to our nurses that the patient would not take Tylenol, and that they did not have rectal Tylenol suppository. Admitted here in February for healthcare associated pneumonia, sepsis, respiratory failure, required intubation in the hospital. - Related Data Home Medications Medication Instructions Recorded Confirmed acetaminophen 500 mg tablet 500 mg PO Q4HP PRN 12/31/17 05/28/18 allopurinol 100 mg tablet 100 mg PO DAILY 12/31/17 05/28/18 aripiprazole 10 mg tablet 10 mg PO HS 12/31/17 05/28/18 ascorbic acid (vitamin C) 500 mg 500 mg PO BID 12/31/17 05/28/18 capsule carbidopa 25 mg-levodopa 100 mg 2 tab PO QID 12/31/17 05/28/18 tablet cholecalciferol (vitamin D3) 2,000 2,000 unit PO DAILY 12/31/17 05/28/18 unit capsule diazepam 5 mg tablet 5 mg PO BID tab 12/31/17 05/28/18 duloxetine 60 mg capsule,delayed 90 mg PO DAILY 12/31/17 05/28/18 release gabapentin 400 mg capsule 400 mg PO TID 12/31/17 05/28/18 ondansetron HCl 4 mg tablet 4 mg PO Q8HP PRN 12/31/17 05/28/18 polyethylene glycol 3350 17 17 g PO DAILY each 12/31/17 05/28/18 gram/dose oral powder simvastatin 40 mg tablet 40 mg PO HS 12/31/17 05/28/18 Aspirin [Aspirin 81mg chewable 81 mg PO DAILY 03/09/18 05/28/18 tab] Bisacodyl [Bisacodyl 10mg Supp] 10 mg RC DAILYP PRN 03/09/18 05/28/18 Clopidogrel Bisulfate [Plavix 75mg 75 mg PO DAILY 03/09/18 05/28/18 Tab] Isosorbide Dinitrate 10 mg PO TID 03/09/18 05/28/18 Lactulose [Lactulose 10gm/15ml 20 gm PO BID 03/09/18 05/28/18 Oral Soln] Polyvinyl Alcohol [Liquitears] 1 drop OP BIDP PRN 03/09/18 05/28/18 Sennosides/Docusate Sodium 1 tab PO DAILY 03/09/18 05/28/18 [Docusate Sodium-Senna Tablet] Pantoprazole Sodium [Protonix 40mg 40 mg PO BID 03/17/18 05/28/18 tablet] Hydrocod/Acet 5/325 mg [[place] 1 tab PO TID PRN 05/28/18 05/28/18 5/325mg tablet] Tamsulosin HCl [Flomax 0.4mg 0.4 mg PO HS 05/28/18 05/28/18 capsule] Allergies Allergy/AdvReac Type Severity Reaction Status Date / Time pregabalin [From LYRICA] Allergy Unknown Verified 03/30/18 10:10 [facility] History I have reviewed the patient's past medical history: Yes Medical History: Reports:: Anxiety, Depression, Diabetes Mellitus Type 2, Hyperlipidemia, Hypertension, MRSA, Peripheral Vascular Disease Denies:: Cancer Other Medical History: Reports: Cataracts Other Surgeries: Yes: Other Amputation: Yes Comment: LHC/Runoff 01/2018 Medical mgt - Social History Smoking Status: Former smoker Tobacco Type: cigarettes Alcohol Intake: never Alcohol Intake Frequency:: other Occupational Status: unemployed Housing: snf - Psychiatric History Expresses thoughts of harming self/others: None Suicide Plan Description: No Plan Pschychiatric History:: Reports:: Anxiety, Depression Family Hx:: Unable to obtain, Coronary Artery Disease ROS Obtained: Yes unobtainable due to mental status Physical Exam - General General appearance: other Comment: Opens eyes to voice - Head Head exam: atraumatic, normocephalic - Neck Neck exam: Absent: meningismus - Chest Chest inspection: Present: symmetric chest wall rise - Respiratory Respiratory exam: Present: normal lung sounds bilaterally - Cardiovascular Cardiovascular exam: Present: tachycardia, normal heart sounds - Abdominal Exam Abdominal exam: Present: soft. Absent: distention, tenderness (No apparent tenderness on palpation), guarding, rebound, rigidity - exam: Present: other (Ayon catheter present) - Extremities Exam Extremities exam: Present: other (Partial bilateral foot amputations. Bandage on the right heel. No cellulitis seen.) - Neurological Exam Neurological exam: Present: other (Resting tremor) - Skin Skin exam: Present: warm, dry
[2018-05-28 21:55] LABS: Basophils % 0.1 % (0.1-2.0); Eosinophils # 0.1 K/mm3 (0.0-0.4); Eosinophils % 0.6 % (0.1-12.0); Hematocrit 39.8 % (42.0-52.0); Hemoglobin 12.2 g/dL (14.1-18.0); Lymphocytes # 0.5 K/mm3 (0.7-4.5); Lymphocytes % 3.4 K/mm3 (10-50); Mean Corpuscular HGB Conc 30.7 g/dL (31.8-35.4); Mean Corpuscular Hemoglobin 26.3 pg (27.0-31.2); Mean Corpuscular Volume 85.6 fl (80-94); Mean Platelet Volume 7.6 fl (7.4-10.4); Monocytes # 0.7 K/mm3 (0.1-1.0); Monocytes % 4.2 % (1.7-9.3); Neutrophils # 14.5 K/mm3 (1.8-7.8); Neutrophils % 91.7 % (37.0-80.0); Platelet Count 252 K/mm3 (142-424); Red Blood Count 4.65 M/mm3 (4.60-6.20); Red Cell Distribution Width 14.1 % (11.5-17.5); White Blood Count 15.8 K/mm3 (4.8-10.8)
[2018-05-28 22:14] LABS: Hypochromasia 1+; Lymphocytes % 7 % (10-50); Neutrophils % 83 % (42-76); Total Cells Counted 100
[2018-05-28 22:21] LABS: Alanine Aminotransferase 7 U/L (12-78); Albumin Level 3.4 gm/dL (3.4-5.0); Albumin/Globulin Ratio 0.7 (1.1-1.8); Alkaline Phosphatase 88 U/L (46-116); Anion Gap 9.2 mEq/L (5-15); Aspartate Amino Transferase 11 U/L (15-37); Bilirubin,Total 0.7 mg/dL (0.2-1.0); Blood Urea Nitrogen 18 mg/dL (7-18); Calcium 8.9 mg/dL (8.5-10.1); Carbon Dioxide 31 mmol/L (21.0-32.0); Chloride 101 mmol/L (98-107); Creatine Kinase 71 U/L (39-308); Globulin 4.6 gm/dl (1.3-3.2); Glucose 130 mg/dL (74-106); Potassium 4.2 mmoL/L (3.5-5.1); Sodium 137 mmol/L (136-145)
[2018-05-29 06:53] LABS: Basophils % 0.3 % (0.1-2.0); Eosinophils # 0.2 K/mm3 (0.0-0.4); Eosinophils % 1.1 % (0.1-12.0); Hematocrit 34.3 % (42.0-52.0); Hemoglobin 11.5 g/dL (14.1-18.0); Lymphocytes # 0.9 K/mm3 (0.7-4.5); Lymphocytes % 5.9 K/mm3 (10-50); Mean Corpuscular HGB Conc 33.6 g/dL (31.8-35.4); Mean Corpuscular Volume 86.4 fl (80-94); Mean Platelet Volume 8.4 fl (7.4-10.4); Monocytes # 0.8 K/mm3 (0.1-1.0); Monocytes % 5.3 % (1.7-9.3); Neutrophils # 12.7 K/mm3 (1.8-7.8); Neutrophils % 87.4 % (37.0-80.0); Platelet Count 209 K/mm3 (142-424); Red Blood Count 3.97 M/mm3 (4.60-6.20); Red Cell Distribution Width 14.1 % (11.5-17.5); White Blood Count 14.6 K/mm3 (4.8-10.8)
[2018-05-29 07:03] LABS: Calcium 8.3 mg/dL (8.5-10.1)
[2018-05-29 07:39] LABS: Eosinophils % 1 % (0-3); Lymphocytes % 7 % (10-50); Monocytes % 7 % (2-9); Neutrophils % 83 % (42-76); RBC Morphology Normal; Total Cells Counted 100
--- NOTE | 2018-05-29 10:54 | History & Physical Report ---
*Admission Date: 05/29/18 *Chief complaint: fever *History of present illness: 57-year-old male presented to the ER via ambulance from [facility] with report of altered mental status and fever. Reported temperature of 103 at the halfway. group home staff reported to ED nurses that the patient would not take Tylenol, and that they did not have rectal Tylenol suppository. pt is poor historian, was admitted here in February for healthcare associated pneumonia, sepsis, respiratory failure, required intubation in the hospital. Patient admitted for pneumonia placed on Levaquin, cefepime, and vancomycin. [facility] History I have reviewed the patient's past medical history: Yes Medical History: Reports:: Anxiety, Depression, Diabetes Mellitus Type 2, Hyperlipidemia, Hypertension, MRSA, Peripheral Vascular Disease Denies:: Cancer Other Medical History: Reports: Cataracts Other Surgeries: Yes: Other Amputation: Yes - *Social History Smoking Status: Former smoker Tobacco Type: cigarettes Alcohol Intake: former Alcohol Intake Frequency:: other Occupational Status: unemployed Housing: halfway - Psychiatric History Expresses thoughts of harming self/others: None Suicide Plan Description: No Plan Pschychiatric History:: Reports:: Anxiety, Depression *Family Hx:: Unable to obtain, Coronary Artery Disease Review of Systems - Review of Systems Review of systems:: unable to obtain - Constitutional Reports fever(s) Meds Home Medications Medication Instructions Recorded Confirmed Type acetaminophen 500 mg tablet 500 mg PO Q4HP PRN 12/31/17 05/29/18 History allopurinol 100 mg tablet 100 mg PO DAILY 12/31/17 05/29/18 History aripiprazole 10 mg tablet 10 mg PO HS 12/31/17 05/29/18 History ascorbic acid (vitamin C) 500 mg 500 mg PO BID 12/31/17 05/29/18 History capsule carbidopa 25 mg-levodopa 100 mg 2 tab PO QID 12/31/17 05/29/18 History tablet cholecalciferol (vitamin D3) 2,000 2,000 unit PO DAILY 12/31/17 05/29/18 History unit capsule diazepam 5 mg tablet 5 mg PO BID tab 12/31/17 05/29/18 History duloxetine 60 mg capsule,delayed 90 mg PO DAILY 12/31/17 05/29/18 History release gabapentin 400 mg capsule 400 mg PO TID 12/31/17 05/29/18 History ondansetron HCl 4 mg tablet 4 mg PO Q8HP PRN 12/31/17 05/29/18 History polyethylene glycol 3350 17 17 g PO DAILY each 12/31/17 05/29/18 History gram/dose oral powder simvastatin 40 mg tablet 40 mg PO HS 12/31/17 05/29/18 History Aspirin [Aspirin 81mg chewable 81 mg PO DAILY 03/09/18 05/29/18 History tab] Bisacodyl [Bisacodyl 10mg Supp] 10 mg RC DAILYP PRN 03/09/18 05/29/18 History Clopidogrel Bisulfate [Plavix 75mg 75 mg PO DAILY 03/09/18 05/29/18 History Tab] Isosorbide Dinitrate 10 mg PO TID 03/09/18 05/29/18 History Lactulose [Lactulose 10gm/15ml 20 gm PO BID 03/09/18 05/29/18 History Oral Soln] Polyvinyl Alcohol [Liquitears] 1 drop OP BIDP PRN 03/09/18 05/29/18 History Sennosides/Docusate Sodium 1 tab PO DAILY 03/09/18 05/29/18 History [Docusate Sodium-Senna Tablet] Pantoprazole Sodium [Protonix 40mg 40 mg PO BID 03/17/18 05/29/18 History tablet] Hydrocod/Acet 5/325 mg [[place] 1 tab PO TID PRN 05/28/18 05/29/18 History 5/325mg tablet] Tamsulosin HCl [Flomax 0.4mg 0.4 mg PO HS 05/28/18 05/29/18 History capsule] Allergies Allergy/AdvReac Type Severity Reaction Status Date / Time pregabalin [From LYRICA] Allergy Unknown Verified 05/29/18 04:34 Exam Vital signs and Labs for Last 24 Hours: Temp Pulse Resp BP Pulse Ox 100.9 F H 108 H 20 129/60 94 L 05/29/18 09:57 05/29/18 08:32 05/29/18 08:32 05/29/18 08:32 05/29/18 08:32 Laboratory Results - last 24 hr 05/28/18 21:35: Urine Color Yellow, Urine Appearance Clear, Urine pH 7.0, Ur Specific [place] 1.015, Urine Protein Negative, Urine Glucose (UA) Negative, Urine Ketones Negative, Urine Blood Negative, Urine Nitrate Negative, Urine Bilirubin Negative, Urine Urobilinogen 0.2, Ur Leukocyte Esterase Negative, Urine WBC 3-5, Ur Squamous Epith Cells 10-20 05/28/18 21:40: WBC 15.8 H, RBC 4.65, Hgb 12.2 L, Hct 39.8 L, MCV 85.6, MCH 26.3 L, MCHC 30.7 L, RDW 14.1, Plt Count 252, MPV 7.6, Neut % (Auto) 91.7 H, Lymph % (Auto) 3.4 L, [place] % (Auto) 4.2, Eos % (Auto) 0.6, Baso % (Auto) 0.1, Neut # (Auto) 14.5 H, Lymph # (Auto) 0.5 L, [place] # (Auto) 0.7, Eos # (Auto) 0.1 , Baso # (Auto) 0.0, Total Counted 100, Neutrophils % (Manual) 83 H, Band Neutrophils % 10.0 H, Lymphocytes % (Manual) 7 L, Platelet Estimate Normal, Hypochromasia 1+ 05/28/18 21:40: Sodium 137, Potassium 4.2, Chloride 101, Carbon Dioxide 31, Anion Gap 9.2, BUN 18, Creatinine 1.08, Estimated Creat Clear 99, Estimated GFR 70, Est GFR ( Amer) 85, Glucose 130 H, Calcium 8.9, Total Bilirubin 0.7, AST 11 L, ALT 7 L, Alkaline Phosphatase 88, Total Creatine Kinase 71, CK-MB (CK- 2) 1.2 D, CK-MB (CK-2) Rel Index 1.7, Troponin I < 0.02, Total Protein 8.0 D, Albumin 3.4, Globulin 4.6 H, Albumin/Globulin Ratio 0.7 L 05/28/18 21:40: Lactic Acid 1.4 05/29/18 05:45: POC Glucose 114 H 05/29/18 06:43: WBC 14.6 H, RBC 3.97 L, Hgb 11.5 L, Hct 34.3 L, MCV 86.4, MCH 29.0, MCHC 33.6, RDW 14.1, Plt Count 209, MPV 8.4, Neut % (Auto) 87.4 H, Lymph % (Auto) 5.9 L, [place] % (Auto) 5.3, Eos % (Auto) 1.1, Baso % (Auto) 0.3, Neut # ( Auto) 12.7 H, Lymph # (Auto) 0.9, [place] # (Auto) 0.8, Eos # (Auto) 0.2, Baso # ( Auto) 0.0, Total Counted 100, Neutrophils % (Manual) 83 H, Band Neutrophils % 2.0, Lymphocytes % (Manual) 7 L, Monocytes % (Manual) 7, Eosinophils % (Manual) 1, Platelet Estimate Normal, RBC Morphology Normal 05/29/18 06:43: Sodium 138, Potassium 4.0, Chloride 105, Carbon Dioxide 28, Anion Gap 9.0, BUN 15, Creatinine 1.01, Estimated Creat Clear 106, Estimated GFR 76, Est GFR ( Amer) 92, Glucose 119 H, Calcium 8.3 L I & O for Last 24 hours: Intake & Output 05/26/18 05/27/18 05/28/18 05/29/18 11:59 11:59 11:59 11:59 Intake Total 5528 / 5528 Output Total 500 / 500 Balance 5028 / 5028 Weight 208 lb 1 oz - Constitutional no acute distress - *Routine HEENT Exam Head: Present: normocephalic Eye: Present: PERRL ENT: Present: mucous membranes moist - *Routine Neck Exam Present: supple - *Routine Respiratory Exam Present: rhonchi, diminished air movement - *Routine Cardiovascular Exam Present: RRR - *Routine Abdominal Exam Present: soft, normoactive bowel sounds - *Routine Extremities Exam Present: full ROM - *Routine Skin Exam Comments: dressing to rt foot heel- toes ambutated - *Routine Neurological Exam Present: alert, oriented X3 - Routine Psychiatric Exam Present: normal affect H&P: Result - Labs Labs: Short CBC 05/28/18 05/29/18 Range/Units 21:40 06:43 WBC 15.8 H 14.6 H (4.8-10.8) K/mm3 Hgb 12.2 L 11.5 L (14.1-18.0) g/dL Hct 39.8 L 34.3 L (42.0-52.0) % Plt Count 252 209 (142-424) K/mm3 BMP 05/28/18 05/29/18 21:40 06:43 Sodium 137 138 Potassium 4.2 4.0 Chloride 101 105 Carbon Dioxide 31 28 BUN 18 15 Creatinine 1.08 1.01 Glucose 130 H 119 H Calcium 8.9 8.3 L Cardiac Enzymes 05/28/18 Range/Units 21:40 Total Creatine Kinase 71 (39-308) U/L CK-MB (CK-2) 1.2 D (0.0-3.6) ng/ml Troponin I < 0.02 (0.00-0.06) ng/ml Liver Function 05/28/18 Range/Units 21:40 Total Bilirubin 0.7 (0.2-1.0) mg/dL AST 11 L (15-37) U/L ALT 7 L (12-78) U/L Alkaline Phosphatase 88 (46-116) U/L Albumin 3.4 (3.4-5.0) gm/dL Urine 05/28/18 Range/Units 21:35 Urine Color Yellow (Yellow) Urine Appearance Clear (Clear) Urine pH 7.0 (5.0-8.5) Ur Specific [place] 1.015 (1.005-1.030) Urine Protein Negative (Negative) Urine Glucose (UA) Negative (Negative) Assessment and Plan - Assessment and plan all Dx Assessment and Plan for all problems:: Discussed patient with Dr. Hoover, he will be in later today, all orders per Dr. Hoover.
--- NOTE | 2018-05-29 11:09 | Pharmacy Consult Notes ---
- Pharmacy Consult Date: 05/29/18 Time: 11:08 Referring provider: DR. KELLER Reason for Consult:: VANCOMYCIN DOSING Allergies and ADEs:: Allergies Allergy/AdvReac Type Severity Reaction Status Date / Time pregabalin [From LYRICA] Allergy Unknown Verified 05/29/18 04:34 Home Medications:: Home Medications Medication Instructions Recorded Confirmed Type acetaminophen 500 mg tablet 500 mg PO Q4HP PRN 12/31/17 05/29/18 History allopurinol 100 mg tablet 100 mg PO DAILY 12/31/17 05/29/18 History aripiprazole 10 mg tablet 10 mg PO HS 12/31/17 05/29/18 History ascorbic acid (vitamin C) 500 mg 500 mg PO BID 12/31/17 05/29/18 History capsule carbidopa 25 mg-levodopa 100 mg 2 tab PO QID 12/31/17 05/29/18 History tablet cholecalciferol (vitamin D3) 2,000 2,000 unit PO DAILY 12/31/17 05/29/18 History unit capsule diazepam 5 mg tablet 5 mg PO BID tab 12/31/17 05/29/18 History duloxetine 60 mg capsule,delayed 90 mg PO DAILY 12/31/17 05/29/18 History release gabapentin 400 mg capsule 400 mg PO TID 12/31/17 05/29/18 History ondansetron HCl 4 mg tablet 4 mg PO Q8HP PRN 12/31/17 05/29/18 History polyethylene glycol 3350 17 17 g PO DAILY each 12/31/17 05/29/18 History gram/dose oral powder simvastatin 40 mg tablet 40 mg PO HS 12/31/17 05/29/18 History Aspirin [Aspirin 81mg chewable 81 mg PO DAILY 03/09/18 05/29/18 History tab] Bisacodyl [Bisacodyl 10mg Supp] 10 mg RC DAILYP PRN 03/09/18 05/29/18 History Clopidogrel Bisulfate [Plavix 75mg 75 mg PO DAILY 03/09/18 05/29/18 History Tab] Isosorbide Dinitrate 10 mg PO TID 03/09/18 05/29/18 History Lactulose [Lactulose 10gm/15ml 20 gm PO BID 03/09/18 05/29/18 History Oral Soln] Polyvinyl Alcohol [Liquitears] 1 drop OP BIDP PRN 03/09/18 05/29/18 History Sennosides/Docusate Sodium 1 tab PO DAILY 03/09/18 05/29/18 History [Docusate Sodium-Senna Tablet] Pantoprazole Sodium [Protonix 40mg 40 mg PO BID 03/17/18 05/29/18 History tablet] Hydrocod/Acet 5/325 mg [[place] 1 tab PO TID PRN 05/28/18 05/29/18 History 5/325mg tablet] Tamsulosin HCl [Flomax 0.4mg 0.4 mg PO HS 05/28/18 05/29/18 History capsule] Height: 1.83 m Weight: 94.376 kg Laboratory Results:: Laboratory Results - last 24 hr 05/28/18 21:35: Urine Color Yellow, Urine Appearance Clear, Urine pH 7.0, Ur Specific [place] 1.015, Urine Protein Negative, Urine Glucose (UA) Negative, Urine Ketones Negative, Urine Blood Negative, Urine Nitrate Negative, Urine Bilirubin Negative, Urine Urobilinogen 0.2, Ur Leukocyte Esterase Negative, Urine WBC 3-5, Ur Squamous Epith Cells 10-20 05/28/18 21:40: WBC 15.8 H, RBC 4.65, Hgb 12.2 L, Hct 39.8 L, MCV 85.6, MCH 26.3 L, MCHC 30.7 L, RDW 14.1, Plt Count 252, MPV 7.6, Neut % (Auto) 91.7 H, Lymph % (Auto) 3.4 L, [place] % (Auto) 4.2, Eos % (Auto) 0.6, Baso % (Auto) 0.1, Neut # (Auto) 14.5 H, Lymph # (Auto) 0.5 L, [place] # (Auto) 0.7, Eos # (Auto) 0.1 , Baso # (Auto) 0.0, Total Counted 100, Neutrophils % (Manual) 83 H, Band Neutrophils % 10.0 H, Lymphocytes % (Manual) 7 L, Platelet Estimate Normal, Hypochromasia 1+ 05/28/18 21:40: Sodium 137, Potassium 4.2, Chloride 101, Carbon Dioxide 31, Anion Gap 9.2, BUN 18, Creatinine 1.08, Estimated Creat Clear 99, Estimated GFR 70, Est GFR ( Amer) 85, Glucose 130 H, Calcium 8.9, Total Bilirubin 0.7, AST 11 L, ALT 7 L, Alkaline Phosphatase 88, Total Creatine Kinase 71, CK-MB (CK- 2) 1.2 D, CK-MB (CK-2) Rel Index 1.7, Troponin I < 0.02, Total Protein 8.0 D, Albumin 3.4, Globulin 4.6 H, Albumin/Globulin Ratio 0.7 L 05/28/18 21:40: Lactic Acid 1.4 05/29/18 05:45: POC Glucose 114 H 05/29/18 06:43: WBC 14.6 H, RBC 3.97 L, Hgb 11.5 L, Hct 34.3 L, MCV 86.4, MCH 29.0, MCHC 33.6, RDW 14.1, Plt Count 209, MPV 8.4, Neut % (Auto) 87.4 H, Lymph % (Auto) 5.9 L, [place] % (Auto) 5.3, Eos % (Auto) 1.1, Baso % (Auto) 0.3, Neut # ( Auto) 12.7 H, Lymph # (Auto) 0.9, [place] # (Auto) 0.8, Eos # (Auto) 0.2, Baso # ( Auto) 0.0, Total Counted 100, Neutrophils % (Manual) 83 H, Band Neutrophils % 2.0, Lymphocytes % (Manual) 7 L, Monocytes % (Manual) 7, Eosinophils % (Manual) 1, Platelet Estimate Normal, RBC Morphology Normal 05/29/18 06:43: Sodium 138, Potassium 4.0, Chloride 105, Carbon Dioxide 28, Anion Gap 9.0, BUN 15, Creatinine 1.01, Estimated Creat Clear 106, Estimated GFR 76, Est GFR ( Amer) 92, Glucose 119 H, Calcium 8.3 L Medical History: Reports:: Anxiety, Depression, Diabetes Mellitus Type 2, Hyperlipidemia, Hypertension, MRSA, Peripheral Vascular Disease Denies:: Cancer Assessment and Plan - Assessment and plan all Dx Assessment and Plan for all problems:: BASED ON PATIENT'S FACTORS AND PAST HX OF VANCOMYCIN DOSING AND LEVELS, RECOMMEND STARTING WITH VANCOMYCIN 1750 MG Q18H AT THIS TIME. PATIENT ALSO CURRENTLY RECEIVING LEVAQUIN AND CEFEPIME. PHARMACY WILL FOLLOW DAILY AND ADJUST APPROPRIATE. EUNICE MOLINA, PHARMD
--- NOTE | 2018-05-29 11:57 | Pharmacy Consult Notes ---
[facility] Pharmacy VTE Monitoring - Patient Demographics Admission date: 05/29/18 Report Date: 05/29/18 Time: 11:57 Allergies/Adverse Reactions: Patient Allergies pregabalin [From LYRICA] Allergy (Unknown, Verified 05/29/18 04:34) Height: 1.83 m Weight: 94.376 kg Patient Problems: Current Active Problems HCAP (healthcare-associated pneumonia) (Acute) Sepsis (Acute) - VTE Risk Labs: VTE Related Lab Results Hgb 11.5 g/dL (14.1-18.0) L 05/29/18 06:43 Hct 34.3 % (42.0-52.0) L 05/29/18 06:43 Plt Count 209 K/mm3 (142-424) 05/29/18 06:43 BUN 15 mg/dL (7-18) 05/29/18 06:43 Creatinine 1.01 mg/dL (0.70-1.30) 05/29/18 06:43 Estimated Creat Clear 106 mL/min (0-300) 05/29/18 06:43 VTE Score: 5 VTE Risk Level: Low Risk - Prophylaxis Types of VTE Prophylaxis: TEDS Thigh High, TEDS Knee High Location of Applied Device: Bilateral Lower Extremeties
[2018-05-30 05:52] LABS: Basophils % 0.2 % (0.1-2.0); Eosinophils # 0.3 K/mm3 (0.0-0.4); Eosinophils % 2.8 % (0.1-12.0); Hematocrit 31.2 % (42.0-52.0); Hemoglobin 10.4 g/dL (14.1-18.0); Lymphocytes # 1.2 K/mm3 (0.7-4.5); Mean Corpuscular HGB Conc 33.3 g/dL (31.8-35.4); Mean Corpuscular Hemoglobin 28.6 pg (27.0-31.2); Mean Corpuscular Volume 85.8 fl (80-94); Mean Platelet Volume 7.9 fl (7.4-10.4); Monocytes # 0.8 K/mm3 (0.1-1.0); Monocytes % 6.3 % (1.7-9.3); Neutrophils # 9.9 K/mm3 (1.8-7.8); Neutrophils % 80.6 % (37.0-80.0); Platelet Count 196 K/mm3 (142-424); Red Blood Count 3.63 M/mm3 (4.60-6.20); Red Cell Distribution Width 14.1 % (11.5-17.5); White Blood Count 12.2 K/mm3 (4.8-10.8)
[2018-05-30 06:06] LABS: Albumin Level 2.3 gm/dL (3.4-5.0); Albumin/Globulin Ratio 0.6 (1.1-1.8); Anion Gap 10.9 mEq/L (5-15); Bilirubin,Total 0.5 mg/dL (0.2-1.0); Globulin 3.9 gm/dl (1.3-3.2); Potassium 3.9 mmoL/L (3.5-5.1); Total Protein,Serum 6.2 gm/dL (6.4-8.2)
--- NOTE | 2018-05-30 09:49 | Progress Note ---
Internal Medicine - PN: Subj *Date: 05/30/18 *Time: 15:41 Exam Vital signs and Labs for Last 24 Hours: Temp Pulse Resp BP Pulse Ox 98.5 F 92 H 24 112/65 97 05/30/18 08:00 05/30/18 08:00 05/30/18 08:00 05/30/18 08:00 05/30/18 08:00 Laboratory Results - last 24 hr 05/29/18 12:23: POC Glucose 142 H 05/29/18 17:09: POC Glucose 179 H 05/29/18 19:19: POC Glucose 175 H 05/30/18 05:40: WBC 12.2 H, RBC 3.63 L, Hgb 10.4 L, Hct 31.2 L, MCV 85.8, MCH 28.6, MCHC 33.3, RDW 14.1, Plt Count 196, MPV 7.9, Neut % (Auto) 80.6 H, Lymph % (Auto) 10.0, [place] % (Auto) 6.3, Eos % (Auto) 2.8, Baso % (Auto) 0.2, Neut # ( Auto) 9.9 H, Lymph # (Auto) 1.2, [place] # (Auto) 0.8, Eos # (Auto) 0.3, Baso # ( Auto) 0.0 05/30/18 05:40: Sodium 136, Potassium 3.9, Chloride 102, Carbon Dioxide 27, Anion Gap 10.9, BUN 13, Creatinine 1.00, Estimated Creat Clear 107, Estimated GFR 77, Est GFR ( Amer) 93, Glucose 184 H D, Calcium 8.0 L, Total Bilirubin 0.5, AST 6 L D, ALT 10 L D, Alkaline Phosphatase 64, Total Protein 6.2 L, Albumin 2.3 L D, Globulin 3.9 H, Albumin/Globulin Ratio 0.6 L 05/30/18 06:07: POC Glucose 175 H I & O for Last 24 hours: Intake & Output 05/27/18 05/28/18 05/29/18 05/30/18 11:59 11:59 11:59 11:59 Intake Total 5528 / 5528 3826 / 3826 Output Total 500 / 500 1100 / 1100 Balance 5028 / 5028 2726 / 2726 Weight 208 lb 1 oz - Constitutional no acute distress, chronically ill appearing - *Routine HEENT Exam Head: Present: normocephalic Eye: Present: PERRL ENT: Present: mucous membranes moist - *Routine Neck Exam Comments: limited rom - *Routine Respiratory Exam Present: rhonchi, diminished air movement - *Routine Cardiovascular Exam Present: RRR - *Routine Abdominal Exam Present: soft, normoactive bowel sounds - *Routine Extremities Exam Present: full ROM - *Routine Skin Exam Present: wounds Comments: dressing to rt foot heel, prior amputations toes - *Routine Neurological Exam Present: alert, oriented X3 - Routine Psychiatric Exam Present: normal affect Assessment and Plan - Assessment and plan all Dx Assessment and Plan for all problems:: antibotics- wait blood cx results skylar will round later today, all orders per skylar
[2018-05-31 06:27] LABS: Basophils % 0.2 % (0.1-2.0); Eosinophils # 0.3 K/mm3 (0.0-0.4); Eosinophils % 3.4 % (0.1-12.0); Hematocrit 31.9 % (42.0-52.0); Hemoglobin 9.8 g/dL (14.1-18.0); Lymphocytes # 1.4 K/mm3 (0.7-4.5); Lymphocytes % 14.1 K/mm3 (10-50); Mean Corpuscular HGB Conc 30.7 g/dL (31.8-35.4); Mean Corpuscular Hemoglobin 26.1 pg (27.0-31.2); Mean Corpuscular Volume 85.3 fl (80-94); Mean Platelet Volume 8.1 fl (7.4-10.4); Monocytes # 0.7 K/mm3 (0.1-1.0); Monocytes % 6.8 % (1.7-9.3); Neutrophils # 7.3 K/mm3 (1.8-7.8); Neutrophils % 75.6 % (37.0-80.0); Platelet Count 209 K/mm3 (142-424); Red Blood Count 3.74 M/mm3 (4.60-6.20); Red Cell Distribution Width 14.1 % (11.5-17.5); White Blood Count 9.6 K/mm3 (4.8-10.8)
[2018-05-31 06:38] LABS: Albumin Level 2.1 gm/dL (3.4-5.0); Albumin/Globulin Ratio 0.5 (1.1-1.8); Anion Gap 8.8 mEq/L (5-15); Bilirubin,Total 0.6 mg/dL (0.2-1.0); Calcium 7.9 mg/dL (8.5-10.1); Globulin 3.9 gm/dl (1.3-3.2); Potassium 3.8 mmoL/L (3.5-5.1)
--- NOTE | 2018-05-31 09:03 | Discharge Summary ---
General - General Admission date:: 05/28/18 Discharge date: 05/31/18 HPI HPI: 57-year-old male presented to the ER via ambulance from [facility] with report of altered mental status and fever. Reported temperature of 103 at the alf. skilled nursing staff reported to ED nurses that the patient would not take Tylenol, and that they did not have rectal Tylenol suppository. pt is poor historian, was admitted here in February for healthcare associated pneumonia, sepsis, respiratory failure, required intubation in the hospital. Patient admitted for pneumonia placed on Levaquin, cefepime, and vancomycin. Hospital Course Hospital Course: pt with slow improvement on abx and has neg blood cultures and stable vss - pt awake and eating and reports feeling ok and labs stable Objective Vital signs: Temp Pulse Resp BP Pulse Ox 98.6 F 96 H 24 107/64 95 05/31/18 08:00 05/31/18 08:00 05/31/18 08:00 05/31/18 08:00 05/31/18 08:00 no acute distress - *Routine HEENT Exam Head: Present: normocephalic, scalp tenderness Eye: Present: PERRL ENT: Present: mucous membranes dry - *Routine Neck Exam Absent: JVD - *Routine Respiratory Exam Present: decreased breath sounds - *Routine Cardiovascular Exam Present: RRR, murmur, S4 - *Routine Abdominal Exam Present: soft - *Routine Extremities Exam Absent: calf tenderness - *Routine Skin Exam Comments: sl breakdown on rt heel - stage 1 - *Routine Neurological Exam Present: alert, oriented X3, CN II-XII intact - Routine Psychiatric Exam Present: normal affect Results Labs on day of discharge: Labs from last 24 hours 05/31/18 05/31/18 05/31/18 06:05 05:50 05:50 WBC 9.6 RBC 3.74 L Hgb 9.8 L Hct 31.9 L MCV 85.3 MCH 26.1 L MCHC 30.7 L RDW 14.1 Plt Count 209 MPV 8.1 Neut % (Auto) 75.6 Lymph % (Auto) 14.1 [place] % (Auto) 6.8 Eos % (Auto) 3.4 Baso % (Auto) 0.2 Neut # (Auto) 7.3 Lymph # (Auto) 1.4 [place] # (Auto) 0.7 Eos # (Auto) 0.3 Baso # (Auto) 0.0 Sodium 135 L Potassium 3.8 Chloride 102 Carbon Dioxide 28 Anion Gap 8.8 BUN 13 Creatinine 0.93 Estimated Creat Clear 116 Estimated GFR 83 Est GFR ( Amer) 101 Glucose 156 H POC Glucose 142 H Calcium 7.9 L Total Bilirubin 0.6 AST 7 L ALT 6 L D Alkaline Phosphatase 62 Total Protein 6.0 L Albumin 2.1 L Globulin 3.9 H Albumin/Globulin Ratio 0.5 L Vancomycin Trough 05/30/18 05/30/18 05/30/18 22:40 22:10 16:59 WBC RBC Hgb Hct MCV MCH MCHC RDW Plt Count MPV Neut % (Auto) Lymph % (Auto) [place] % (Auto) Eos % (Auto) Baso % (Auto) Neut # (Auto) Lymph # (Auto) [place] # (Auto) Eos # (Auto) Baso # (Auto) Sodium Potassium Chloride Carbon Dioxide Anion Gap BUN Creatinine Estimated Creat Clear Estimated GFR Est GFR ( Amer) Glucose POC Glucose 219 H 200 H Calcium Total Bilirubin AST ALT Alkaline Phosphatase Total Protein Albumin Globulin Albumin/Globulin Ratio Vancomycin Trough 13.1 05/30/18 11:28 WBC RBC Hgb Hct MCV MCH MCHC RDW Plt Count MPV Neut % (Auto) Lymph % (Auto) [place] % (Auto) Eos % (Auto) Baso % (Auto) Neut # (Auto) Lymph # (Auto) [place] # (Auto) Eos # (Auto) Baso # (Auto) Sodium Potassium Chloride Carbon Dioxide Anion Gap BUN Creatinine Estimated Creat Clear Estimated GFR Est GFR ( Amer) Glucose POC Glucose 162 H Calcium Total Bilirubin AST ALT Alkaline Phosphatase Total Protein Albumin Globulin Albumin/Globulin Ratio Vancomycin Trough Preliminary micro results at discharge 05/28/18 21:40 Blood Culture - Preliminary Blood NO GROWTH AFTER 48 HOURS 05/28/18 21:40 Blood Culture - Preliminary Blood NO GROWTH AFTER 48 HOURS DS: Diagnosis - Discharge Diagnosis (1) HCAP (healthcare-associated pneumonia) Status: Acute Discharge Plan - Patient Discharge Instructions ACTIVITY: Continue current activity DIET: continue same diet - Follow up Plan Disposition: Home, Self-Halfway Medications: Home Medications Medication Instructions Recorded Confirmed Type acetaminophen 500 mg tablet 500 mg PO Q4HP PRN 12/31/17 05/29/18 History allopurinol 100 mg tablet 100 mg PO DAILY 12/31/17 05/29/18 History aripiprazole 10 mg tablet 10 mg PO HS 12/31/17 05/29/18 History ascorbic acid (vitamin C) 500 mg 500 mg PO BID 12/31/17 05/29/18 History capsule carbidopa 25 mg-levodopa 100 mg 2 tab PO QID 12/31/17 05/29/18 History tablet cholecalciferol (vitamin D3) 2,000 2,000 unit PO DAILY 12/31/17 05/29/18 History unit capsule diazepam 5 mg tablet 5 mg PO BID tab 12/31/17 05/29/18 History duloxetine 60 mg capsule,delayed 60 mg PO DAILY 12/31/17 05/29/18 History release gabapentin 400 mg capsule 400 mg PO TID 12/31/17 05/29/18 History ondansetron HCl 4 mg tablet 4 mg PO Q8HP PRN 12/31/17 05/29/18 History polyethylene glycol 3350 17 17 g PO DAILY each 12/31/17 05/29/18 History gram/dose oral powder simvastatin 40 mg tablet 40 mg PO HS 12/31/17 05/29/18 History Aspirin [Aspirin 81mg chewable 81 mg PO DAILY 03/09/18 05/29/18 History tab] Bisacodyl [Bisacodyl 10mg Supp] 10 mg RC DAILYP PRN 03/09/18 05/29/18 History Clopidogrel Bisulfate [Plavix 75mg 75 mg PO DAILY 03/09/18 05/29/18 History Tab] Isosorbide Dinitrate 10 mg PO TID 03/09/18 05/29/18 History Lactulose [Lactulose 10gm/15ml 60 ml PO BID 03/09/18 05/29/18 History Oral Soln] Polyvinyl Alcohol [Liquitears] 1 drop OP BIDP PRN 03/09/18 05/29/18 History Sennosides/Docusate Sodium 2 tab PO DAILY 03/09/18 05/29/18 History [Docusate Sodium-Senna Tablet] Pantoprazole Sodium [Protonix 40mg 40 mg PO BID 03/17/18 05/29/18 History tablet] Hydrocod/Acet 5/325 mg [[place] 1 tab PO TID PRN 05/28/18 05/29/18 History 5/325mg tablet] Tamsulosin HCl [Flomax 0.4mg 0.4 mg PO HS 05/28/18 05/29/18 History capsule] Duloxetine HCl [Cymbalta] 30 mg PO DAILY 05/29/18 05/29/18 History Prescriptions/Medication Reconciliation: New Vancomycin HCl [Vancomycin 1000mg Vial] 1,750 mg IV Q18H 7 Days vial Continue ascorbic acid (vitamin C) 500 mg capsule 500 mg PO BID cholecalciferol (vitamin D3) 2,000 unit capsule 2,000 unit PO DAILY diazepam 5 mg tablet 5 mg PO BID tab duloxetine 60 mg capsule,delayed release 60 mg PO DAILY gabapentin 400 mg capsule 400 mg PO TID ondansetron HCl 4 mg tablet 4 mg PO Q8HP PRN PRN Reason: Nausea allopurinol 100 mg tablet 100 mg PO DAILY aripiprazole 10 mg tablet 10 mg PO HS carbidopa 25 mg-levodopa 100 mg tablet 2 tab PO QID acetaminophen 500 mg tablet 500 mg PO Q4HP PRN PRN Reason: Fever > 100.4 polyethylene glycol 3350 17 gram/dose oral powder 17 g PO DAILY each simvastatin 40 mg tablet 40 mg PO HS Polyvinyl Alcohol [Liquitears] 1 drop OP BIDP PRN PRN Reason: EYE PROBLEMS Bisacodyl [Bisacodyl 10mg Supp] 10 mg RC DAILYP PRN PRN Reason: Constipation Lactulose [Lactulose 10gm/15ml Oral Soln] 60 ml PO BID Isosorbide Dinitrate 10 mg PO TID Clopidogrel Bisulfate [Plavix 75mg Tab] 75 mg PO DAILY Sennosides/Docusate Sodium [Docusate Sodium-Senna Tablet] 2 tab PO DAILY Tamsulosin HCl [Flomax 0.4mg capsule] 0.4 mg PO HS Hydrocod/Acet 5/325 mg [[place] 5/325mg tablet] 1 tab PO TID PRN PRN Reason: PAIN Duloxetine HCl [Cymbalta] 30 mg PO DAILY Aspirin [Aspirin 81mg chewable tab] 81 mg PO DAILY Pantoprazole Sodium [Protonix 40mg tablet] 40 mg PO BID
--- NOTE | 2018-05-31 09:20 | Pharmacy Consult Notes ---
- Pharmacy Consult Date: 05/31/18 Time: 09:17 Referring provider: DR. KELLER Reason for Consult:: VANCOMYCIN TROUGH LEVEL Allergies and ADEs:: Allergies Allergy/AdvReac Type Severity Reaction Status Date / Time pregabalin [From LYRICA] Allergy Unknown Verified 05/29/18 04:34 Home Medications:: Home Medications Medication Instructions Recorded Confirmed Type acetaminophen 500 mg tablet 500 mg PO Q4HP PRN 12/31/17 05/29/18 History allopurinol 100 mg tablet 100 mg PO DAILY 12/31/17 05/29/18 History aripiprazole 10 mg tablet 10 mg PO HS 12/31/17 05/29/18 History ascorbic acid (vitamin C) 500 mg 500 mg PO BID 12/31/17 05/29/18 History capsule carbidopa 25 mg-levodopa 100 mg 2 tab PO QID 12/31/17 05/29/18 History tablet cholecalciferol (vitamin D3) 2,000 2,000 unit PO DAILY 12/31/17 05/29/18 History unit capsule diazepam 5 mg tablet 5 mg PO BID tab 12/31/17 05/29/18 History duloxetine 60 mg capsule,delayed 60 mg PO DAILY 12/31/17 05/29/18 History release gabapentin 400 mg capsule 400 mg PO TID 12/31/17 05/29/18 History ondansetron HCl 4 mg tablet 4 mg PO Q8HP PRN 12/31/17 05/29/18 History polyethylene glycol 3350 17 17 g PO DAILY each 12/31/17 05/29/18 History gram/dose oral powder simvastatin 40 mg tablet 40 mg PO HS 12/31/17 05/29/18 History Aspirin [Aspirin 81mg chewable 81 mg PO DAILY 03/09/18 05/29/18 History tab] Bisacodyl [Bisacodyl 10mg Supp] 10 mg RC DAILYP PRN 03/09/18 05/29/18 History Clopidogrel Bisulfate [Plavix 75mg 75 mg PO DAILY 03/09/18 05/29/18 History Tab] Isosorbide Dinitrate 10 mg PO TID 03/09/18 05/29/18 History Lactulose [Lactulose 10gm/15ml 60 ml PO BID 03/09/18 05/29/18 History Oral Soln] Polyvinyl Alcohol [Liquitears] 1 drop OP BIDP PRN 03/09/18 05/29/18 History Sennosides/Docusate Sodium 2 tab PO DAILY 03/09/18 05/29/18 History [Docusate Sodium-Senna Tablet] Pantoprazole Sodium [Protonix 40mg 40 mg PO BID 03/17/18 05/29/18 History tablet] Hydrocod/Acet 5/325 mg [[place] 1 tab PO TID PRN 05/28/18 05/29/18 History 5/325mg tablet] Tamsulosin HCl [Flomax 0.4mg 0.4 mg PO HS 05/28/18 05/29/18 History capsule] Duloxetine HCl [Cymbalta] 30 mg PO DAILY 05/29/18 05/29/18 History Height: 1.83 m Weight: 94.376 kg Laboratory Results:: Laboratory Results - last 24 hr 05/30/18 11:28: POC Glucose 162 H 05/30/18 16:59: POC Glucose 200 H 05/30/18 22:10: POC Glucose 219 H 05/30/18 22:40: Vancomycin Trough 13.1 05/31/18 05:50: WBC 9.6, RBC 3.74 L, Hgb 9.8 L, Hct 31.9 L, MCV 85.3, MCH 26.1 L , MCHC 30.7 L, RDW 14.1, Plt Count 209, MPV 8.1, Neut % (Auto) 75.6, Lymph % ( Auto) 14.1, [place] % (Auto) 6.8, Eos % (Auto) 3.4, Baso % (Auto) 0.2, Neut # (Auto ) 7.3, Lymph # (Auto) 1.4, [place] # (Auto) 0.7, Eos # (Auto) 0.3, Baso # (Auto) 0.0 05/31/18 05:50: Sodium 135 L, Potassium 3.8, Chloride 102, Carbon Dioxide 28, Anion Gap 8.8, BUN 13, Creatinine 0.93, Estimated Creat Clear 116, Estimated GFR 83, Est GFR ( Amer) 101, Glucose 156 H, Calcium 7.9 L, Total Bilirubin 0.6, AST 7 L, ALT 6 L D, Alkaline Phosphatase 62, Total Protein 6.0 L , Albumin 2.1 L, Globulin 3.9 H, Albumin/Globulin Ratio 0.5 L 05/31/18 06:05: POC Glucose 142 H Medical History: Reports:: Anxiety, Depression, Diabetes Mellitus Type 2, Hyperlipidemia, Hypertension, MRSA, Peripheral Vascular Disease Denies:: Cancer Assessment and Plan (1) HCAP (healthcare-associated pneumonia) Current visit: Yes Status: Acute Category: Medical Code(s): J18.9 - Pneumonia, unspecified organism - Assessment and plan all Dx Assessment and Plan for all problems:: BASED ON PATIENT'S VANCOMYCIN TROUGH LEVEL OF 13.1 MCG/ML, RECOMMEND PATIENT CONTINUE WITH VANCOMYCIN 1750 MG Q18H AT THIS TIME. PHARMACY WILL FOLLOW DAILY AND ADJUST APPROPRIATE. [facility]
[2018-05-31 14:00] VITALS: BP 101/60
== END 2018-05-31 15:03 ==
LOC: ER 21:25 → 2ND 21:25 → OBSVTOIN 23:20 → 2ND 23:21
PROVIDERS: ADMIT Family Medicine; ATTEND Emergency Medicine

== ENCOUNTER → 2018-06-03 00:10 | Outpatient (REF) | payer MEDICARE, MEDICAID, SELFPAY ==
[2018-06-03 00:50] LABS: Anion Gap 10.4 mEq/L (5-15); Blood Urea Nitrogen 16 mg/dL (7-18); Carbon Dioxide 28 mmol/L (21.0-32.0); Chloride 106 mmol/L (98-107); Creatinine,Serum 0.86 mg/dL (0.70-1.30); Estimated Glomerular Filt Rate 91 ml/min (>60); GFR (African American) 111 ML/MIN (>60); Glucose 136 mg/dL (74-106); Potassium 4.4 mmoL/L (3.5-5.1); Sodium 140 mmol/L (136-145)
[2018-06-03 00:52] LABS: Vancomycin,Trough 23.6 mcg/ml (10.0-20.0)
[2018-06-03 00:59] LABS: Calcium 8.7 mg/dL (8.5-10.1)
== END ==
LOC: LAB 00:10
PROVIDERS: Visit Provider Emergency Medicine
DX: J18.9 Pneumonia, unspecified organism (principal)
CPT/HCPCS: 80048; 80202

== ENCOUNTER → 2018-06-04 18:18 | Outpatient (REF) | payer MEDICARE, MEDICAID, SELFPAY ==
[2018-06-04 19:14] LABS: Anion Gap 8.4 mEq/L (5-15); Blood Urea Nitrogen 14 mg/dL (7-18); Calcium 8.7 mg/dL (8.5-10.1); Carbon Dioxide 30 mmol/L (21.0-32.0); Chloride 108 mmol/L (98-107); Creatinine,Serum 0.88 mg/dL (0.70-1.30); Estimated Glomerular Filt Rate 89 ml/min (>60); GFR (African American) 108 ML/MIN (>60); Glucose 139 mg/dL (74-106); Potassium 4.4 mmoL/L (3.5-5.1); Sodium 142 mmol/L (136-145); Vancomycin,Random 23.8 ug/mL
== END ==
LOC: LAB 18:18
PROVIDERS: Visit Provider Emergency Medicine
DX: J18.9 Pneumonia, unspecified organism (principal)
CPT/HCPCS: 80048; 80202

== ENCOUNTER 2018-07-06 04:09 | Inpatient (IN) ==
[2018-07-06 04:33] LABS: ABG Base Excess 0.8 mmol/L (-2.4-2.3); ABG HCO3 26.1 mmhg (22.0-26.0); ABG Oxygen Saturation 95 % (90-100); ABG PH 7.37 mmol/L (7.35-7.45); ABG TCO2 27.5 mmhg (23-27)
[2018-07-06 04:35] LABS: Allen's Test Acceptable; Oxygen 21 %
[2018-07-06 04:38] LABS: Microscopic, Urine URINE MICROSCOPIC (MICROSCOPIC)
[2018-07-06 04:42] LABS: Basophils # 0.1 K/mm3 (0-0.2); Basophils % 0.8 % (0.1-2.0); Eosinophils # 0.6 K/mm3 (0.0-0.4); Eosinophils % 8.5 % (0.1-12.0); Hematocrit 39.7 % (42.0-52.0); Hemoglobin 12.4 g/dL (14.1-18.0); Lymphocytes % 29.1 K/mm3 (10-50); Mean Corpuscular HGB Conc 31.2 g/dL (31.8-35.4); Mean Corpuscular Hemoglobin 25.9 pg (27.0-31.2); Mean Corpuscular Volume 82.9 fl (80-94); Mean Platelet Volume 7.3 fl (7.4-10.4); Monocytes # 0.4 K/mm3 (0.1-1.0); Monocytes % 6.4 % (1.7-9.3); Neutrophils # 3.8 K/mm3 (1.8-7.8); Neutrophils % 55.3 % (37.0-80.0); Platelet Count 278 K/mm3 (142-424); Red Blood Count 4.79 M/mm3 (4.60-6.20); White Blood Count 6.9 K/mm3 (4.8-10.8)
[2018-07-06 04:52] LABS: Appearance,Urine CLEAR (Clear); Bilirubin,Urine Negative (Negative); Blood, Urine Negative (Negative); Color,Urine YELLOW (Yellow); Glucose,Urine (UA) Negative (Negative); Ketones,Urine Negative (Negative); Leukocyte Esterase,Urine Negative (Negative); PH,Urine 5.5 (5.0-8.5); Protein,Urine Negative (Negative); Specific Gravity, Urine 1.025 (1.005-1.030); Urobilinogen,Urine 0.2 EU/dl (0.2)
[2018-07-06 04:54] LABS: Albumin Level 3.6 gm/dL (3.4-5.0); Albumin/Globulin Ratio 0.9 (1.1-1.8); Anion Gap 11.9 mEq/L (5-15); Bilirubin,Total 0.4 mg/dL (0.2-1.0); Globulin 4.2 gm/dl (1.3-3.2); Potassium 4.9 mmoL/L (3.5-5.1); Total Protein,Serum 7.8 gm/dL (6.4-8.2)
[2018-07-06 04:59] LABS: Bacteria,Urine 1+ /lpf; WBC,Urine Occasional #/hpf (0-3)
--- NOTE | 2018-07-06 05:32 | Emergency Department Note ---
ED Disposition Clinical Impression: Febrile illness, acute, Renal insufficiency, HCAP (healthcare-associated pneumonia) Disposition: Admitted as Observation Condition on Discharge: Good Referrals: Jasmeet Hoover MD [Primary Care Provider] - - Critical Care Critical Care Time: No Attestation: On 07/06/18, the high probability of a clinically significant, sudden or life threatening deterioration of the following system(s) required my full and direct attention, intervention and personal management. The time I documented below is in addition to time spent performing reported procedures but includes the following listed in this critical care notation. Medical Decision Making - Medical Records Medical records reviewed: Yes: I reviewed the patient's medical records. - [place] Inquiry Pt receiving controlled substance: No Vital Signs: 07/06/18 04:10 07/06/18 05:07 07/06/18 05:10 Temperature 102.6 F H Temperature Source Rectal Pulse Rate 86 Pulse Rate [Right Radial] 90 80 Respiratory Rate 16 16 Blood Pressure [Right Arm] 139/65 125/71 Blood Pressure Mean [Right Arm] 89 89 Blood Pressure Source [Right Arm] Automatic Cuff Blood Pressure Position [Right Arm] Sitting 02 Sat by Pulse Oximetry 96 98 Oxygen Delivery Method Room Air 07/06/18 05:32 Temperature 99.9 F H Temperature Source Axillary Pulse Rate Pulse Rate [Right Radial] 85 Respiratory Rate 18 Blood Pressure [Right Arm] 149/81 Blood Pressure Mean [Right Arm] 103 Blood Pressure Source [Right Arm] Blood Pressure Position [Right Arm] 02 Sat by Pulse Oximetry 98 Oxygen Delivery Method Room Air - Lab Data Lab results reviewed: Yes: I reviewed the patient's lab results. Lab Results 07/06/18 04:15: WBC 6.9, RBC 4.79, Hgb 12.4 L, Hct 39.7 L, MCV 82.9, MCH 25.9 L , MCHC 31.2 L, RDW 15.0, Plt Count 278, MPV 7.3 L, Neut % (Auto) 55.3, Lymph % ( Auto) 29.1, [place] % (Auto) 6.4, Eos % (Auto) 8.5, Baso % (Auto) 0.8, Neut # (Auto ) 3.8, Lymph # (Auto) 2.0, [place] # (Auto) 0.4, Eos # (Auto) 0.6 H, Baso # (Auto) 0.1 07/06/18 04:15: Sodium 138, Potassium 4.9, Chloride 102, Carbon Dioxide 29, Anion Gap 11.9, BUN 22 H, Creatinine 1.14, Estimated Creat Clear 59, Estimated GFR 66, Est GFR ( Amer) 80, Glucose 191 H, Calcium 9.0, Total Bilirubin 0.4, AST 14 L, ALT 10 L, Alkaline Phosphatase 89, Total Protein 7.8 D, Albumin 3.6, Globulin 4.2 H, Albumin/Globulin Ratio 0.9 L 07/06/18 04:15: Lactate 1.6 07/06/18 04:30: Specimen Source Rt radial, O2 % 21, ABG pH 7.37, ABG pCO2 46.0 H , ABG pO2 77.0 L, ABG HCO3 26.1 H, ABG Total CO2 27.5 H, ABG O2 Saturation 95, ABG Base Excess 0.8, Cristino Test Acceptable 07/06/18 04:37: Urine Color Yellow, Urine Appearance Clear, Urine pH 5.5, Ur Specific [place] 1.025, Urine Protein Negative, Urine Glucose (UA) Negative, Urine Ketones Negative, Urine Blood Negative, Urine Nitrate Negative, Urine Bilirubin Negative, Urine Urobilinogen 0.2, Ur Leukocyte Esterase Negative, Urine WBC Occasional, Urine Bacteria 1+ Result diagrams: 07/06/18 04:15 07/06/18 04:15 Orders (Tests/Meds): ED MEDICATIONS Generic Name Dose Route Start Last Admin Trade Name Freq PRN Reason Stop Dose Admin Cefepime HCl 2 gm/ Sodium 100 mls @ 200 mls/hr 07/06/18 05:30 07/06/18 05:34 Chloride IV 07/20/18 05:29 200 mls/hr Q12H [facility] Administration Protocol Miscellaneous 1,500 each 07/06/18 05:30 07/06/18 05:33 Vancomycin Consult Request * 08/05/18 05:29 1,500 each CONSULT PHARMACY [facility] Administration Sodium Chloride 3 ml 07/06/18 04:18 Sodium Chloride 3% 15ml Neb 08/05/18 04:17 ONCE PRN INDUCE SPUTUM [employer]LECTION Discontinued Medications Generic Name Dose Route Start Last Admin Trade Name Freq PRN Reason Stop Dose Admin Acetaminophen 650 mg 07/06/18 04:49 07/06/18 04:50 Acetaminophen 650mg Suppository RC 07/06/18 04:50 650 mg ONCE ONE Administration Albuterol/Ipratropium 3 ml 07/06/18 04:17 07/06/18 05:04 Duoneb 3ml Neb IH 07/06/18 04:18 3 ml ONCE ONE Administration Sodium Chloride 1,000 mls @ 999 mls/hr 07/06/18 04:30 07/06/18 04:49 Sod Chlor 0.9% 1000ml Bag IV 07/06/18 05:30 999 mls/hr .Q1H1M RADHA Administration Methylprednisolone Sodium Succinate 125 mg 07/06/18 04:17 07/06/18 04:49 Solu-Medrol 125mg/2ml Vial IV 07/06/18 04:18 125 mg ONCE ONE Administration Miscellaneous 1 each 07/06/18 05:30 Vancomycin Consult Request * 08/05/18 05:29 CONSULT PHARMACY [facility] ORDERS Category Date Time Status XR chest portable Stat Exams 07/06/18 04:17 Taken Blood Culture Stat Micro 07/06/18 04:30 Received Sputum Culture & Gram Stain Stat Micro 07/06/18 04:18 Ordered EKG Request [ECG Request by /Andrés] Stat Y 07/06/18 04:39 Ordered - Radiology Data #1 Image(s): Chest Image Reviewed: Yes I reviewed the patient's radiology image Preliminary Findings: Abnormal (nonspecific ) - ECG Data Tracing #1 I reviewed this ECG and interpreted as documented below: Normal Sinus Rhythm: Yes Ischemic changes: non-specific ST-T wave changes ECG compared to prior tracings: there are no significant changes Resp/SOB HPI - General Chief Complaint: Shortness of Breath/Dyspnea Stated Complaint: lethargy,difficulty breathing Time Seen by Provider: 07/06/18 04:20 Mode of Arrival: EMS Source of Information: Patient, EMS, Medical Record Limitations: No Limitations Description of Symptoms (Recalled from ER Triage Doc. by RN): long term reports the pt. had decreased level of conciousness at 0320. He presents with cough and reports just not feeling well. - History of Present Illness wm sent from [facility] with fever and cough with change in mental status - MD Complaint: shortness of breath, cough Onset (ago): hour(s) Severity: moderate Known history of: COPD, congestive heart failure Associated symptoms: denies other symptoms Treatment prior to arrival: none - Related Data Home oxygen amount: 2 liters Home Medications Medication Instructions Recorded Confirmed acetaminophen 500 mg tablet 500 mg PO Q4HP PRN 12/31/17 07/06/18 allopurinol 100 mg tablet 100 mg PO DAILY 12/31/17 07/06/18 aripiprazole 10 mg tablet 10 mg PO HS 12/31/17 07/06/18 ascorbic acid (vitamin C) 500 mg 500 mg PO BID 12/31/17 07/06/18 capsule carbidopa 25 mg-levodopa 100 mg 2 tab PO QID 12/31/17 07/06/18 tablet cholecalciferol (vitamin D3) 2,000 2,000 unit PO DAILY 12/31/17 07/06/18 unit capsule diazepam 5 mg tablet 5 mg PO BID tab 12/31/17 07/06/18 duloxetine 60 mg capsule,delayed 60 mg PO DAILY 12/31/17 07/06/18 release gabapentin 400 mg capsule 400 mg PO TID 12/31/17 07/06/18 ondansetron HCl 4 mg tablet 4 mg PO Q8HP PRN 12/31/17 07/06/18 polyethylene glycol 3350 17 17 g PO DAILY each 12/31/17 07/06/18 gram/dose oral powder simvastatin 40 mg tablet 40 mg PO HS 12/31/17 07/06/18 Aspirin [Aspirin 81mg chewable 81 mg PO DAILY 03/09/18 07/06/18 tab] Bisacodyl [Bisacodyl 10mg Supp] 10 mg RC DAILYP PRN 03/09/18 07/06/18 Clopidogrel Bisulfate [Plavix 75mg 75 mg PO DAILY 03/09/18 07/06/18 Tab] Isosorbide Dinitrate 10 mg PO TID 03/09/18 07/06/18 Lactulose [Lactulose 10gm/15ml 60 ml PO BID 03/09/18 07/06/18 Oral Soln] Polyvinyl Alcohol [Liquitears] 1 drop OP BIDP PRN 03/09/18 07/06/18 Sennosides/Docusate Sodium 2 tab PO DAILY 03/09/18 07/06/18 [Docusate Sodium-Senna Tablet] Pantoprazole Sodium [Protonix 40mg 40 mg PO BID 03/17/18 07/06/18 tablet] Hydrocod/Acet 5/325 mg [[place] 1 tab PO TID PRN 05/28/18 07/06/18 5/325mg tablet] Tamsulosin HCl [Flomax 0.4mg 0.4 mg PO HS 05/28/18 07/06/18 capsule] Duloxetine HCl [Cymbalta] 30 mg PO DAILY 05/29/18 07/06/18 Rotigotine [Neupro] 1 each TD DAILY 07/06/18 07/06/18 Allergies Allergy/AdvReac Type Severity Reaction Status Date / Time pregabalin [From LYRICA] Allergy Unknown Verified 07/06/18 04:16 [facility] History I have reviewed the patient's past medical history: Yes Medical History: Reports:: Anxiety, Depression, Diabetes Mellitus Type 2, Hyperlipidemia, Hypertension, MRSA, Peripheral Vascular Disease Denies:: Cancer Other Medical History: Reports: Cataracts Other Surgeries: Yes: Other Amputation: Yes Comment: HANH/Sanjay 01/2018 Medical mgt - Social History Smoking Status: Former smoker Tobacco Type: cigarettes Alcohol Intake: never Alcohol Intake Frequency:: other Occupational Status: unemployed Housing: group home - Psychiatric History Expresses thoughts of harming self/others: None Suicide Plan Description: No Plan Pschychiatric History:: Reports:: Anxiety, Depression Family Hx:: Unable to obtain, Coronary Artery Disease ROS Obtained: Yes All systems reviewed & no additional complaints - Constitutional Constitutional: Reports fever(s), Reports weakness - Eyes Eyes: Denies change in vision - ENT Ears, Nose, Mouth, and Throat: Denies sore throat - Cardiovascular Cardiovascular: Denies chest pain - Respiratory Respiratory: Yes cough, No coughing up blood - Gastrointestinal Gastrointestingal: Denies: abdominal pain - Genitourinary Male Genitourinary: Denies hematuria - Musculoskeletal Musculoskeletal: Denies joint pain, Denies joint swelling - Integumentary/Breasts Skin/Breast: Denies rash - Neurologic Neurologic: Denies seizure-like activity Physical Exam - General General appearance: in no apparent distress, lethargic - Head Head exam: atraumatic - Eye Eye exam: Present: PERRL, EOMI. Absent: scleral icterus - ENT ENT exam: Present: mucous membranes dry - Neck Neck exam: Present: trachea midline - Respiratory Respiratory exam: Present: other (dec bs bilat ). Absent: respiratory distress - Cardiovascular Cardiovascular exam: Present: regular rate, systolic murmur - Abdominal Exam Abdominal exam: Present: soft - Extremities Exam Extremities exam: Present: pedal edema. Absent: calf tenderness - Neurological Exam Neurological exam: Present: alert - Skin Skin exam: Absent: rash
[2018-07-06 06:54] LABS: Anion Gap 9.4 mEq/L (5-15); Blood Urea Nitrogen 20 mg/dL (7-18); Calcium 8.6 mg/dL (8.5-10.1); Carbon Dioxide 29 mmol/L (21.0-32.0); Chloride 102 mmol/L (98-107); Glucose 196 mg/dL (74-106); Potassium 4.4 mmoL/L (3.5-5.1); Sodium 136 mmol/L (136-145)
[2018-07-06 07:10] LABS: Basophils % 0.5 % (0.1-2.0); Eosinophils # 0.5 K/mm3 (0.0-0.4); Eosinophils % 6.4 % (0.1-12.0); Hematocrit 36.7 % (42.0-52.0); Hemoglobin 11.4 g/dL (14.1-18.0); Lymphocytes # 1.6 K/mm3 (0.7-4.5); Lymphocytes % 22.7 K/mm3 (10-50); Mean Corpuscular Hemoglobin 25.7 pg (27.0-31.2); Mean Corpuscular Volume 83.1 fl (80-94); Mean Platelet Volume 7.3 fl (7.4-10.4); Monocytes # 0.3 K/mm3 (0.1-1.0); Monocytes % 4.7 % (1.7-9.3); Neutrophils # 4.7 K/mm3 (1.8-7.8); Neutrophils % 65.7 % (37.0-80.0); Platelet Count 250 K/mm3 (142-424); Red Blood Count 4.42 M/mm3 (4.60-6.20); Red Cell Distribution Width 14.9 % (11.5-17.5); White Blood Count 7.2 K/mm3 (4.8-10.8)
--- NOTE | 2018-07-06 07:18 | Pharmacy Consult Notes ---
[facility] Pharmacy VTE Monitoring - Patient Demographics Admission date: 07/06/18 Report Date: 07/06/18 Time: 07:17 Allergies/Adverse Reactions: Patient Allergies pregabalin [From LYRICA] Allergy (Unknown, Verified 07/06/18 04:16) Height: 1.68 m Weight: 92.278 kg Patient Problems: Current Active Problems HCAP (healthcare-associated pneumonia) (Acute) Febrile illness, acute (Acute) Renal insufficiency (Chronic) - VTE Risk Labs: VTE Related Lab Results Hgb 11.4 g/dL (14.1-18.0) L 07/06/18 06:15 Hct 36.7 % (42.0-52.0) L 07/06/18 06:15 Plt Count 250 K/mm3 (142-424) 07/06/18 06:15 BUN 20 mg/dL (7-18) H 07/06/18 06:15 Creatinine 1.10 mg/dL (0.70-1.30) 07/06/18 06:15 Estimated Creat Clear 96 mL/min (0-300) 07/06/18 06:15 VTE Score: 5 VTE Risk Level: Low Risk - Prophylaxis VTE Prophylaxis Ordered?: Yes Types of VTE Prophylaxis: TEDS Knee High Location of Applied Device: Bilateral Lower Extremeties - VTE Diagnosis Confirmed Treatment or plan recommended: Continue Current Treatment
--- NOTE | 2018-07-06 08:35 | History & Physical Report ---
*Admission Date: 07/06/18 *Chief complaint: change in mental status *History of present illness: pt was sent from [facility] for cough and sob and change in mental status - pt unable to give specific hx but was noted to have fever in the ed and was admitted for ivf and abx [facility] History I have reviewed the patient's past medical history: Yes Medical History: Reports:: Anxiety, Atherosclerotic Heart Disease, Coronary Artery Disease, Depression, Diabetes Mellitus Type 2, Hyperlipidemia, Hypertension, MRSA, Peripheral Vascular Disease Denies:: Cancer Other Medical History: Reports: Cataracts Other Surgeries: Yes: CABG, Cardiac Surgery, Other Amputation: Yes - *Social History Smoking Status: Former smoker Tobacco Type: cigarettes Alcohol Intake: never Alcohol Intake Frequency:: other Occupational Status: unemployed, disabled Housing: shelter - Psychiatric History Expresses thoughts of harming self/others: None Suicide Plan Description: No Plan Pschychiatric History:: Reports:: Anxiety, Depression *Family Hx:: Unable to obtain Review of Systems - Review of Systems Review of systems:: pertinent systems reviewed and negative unless documented below - Constitutional Reports fever(s) - Eyes Denies change in vision - ENT Denies sore throat - *Cardiovascular Denies chest pain - *Respiratory Reports cough, Reports shortness of breath, Denies coughing up blood - *Gastrointestinal Denies abdominal pain - *Genitourinary Denies blood in urine - *Musculoskeletal Denies joint pain, Denies joint swelling - Integumentary/Breasts Denies rash - *Neurologic Reports confusion, Reports weakness, Denies seizure-like activity - Psychiatric Denies anxiety Meds Home Medications Medication Instructions Recorded Confirmed Type acetaminophen 500 mg tablet 500 mg PO Q4HP PRN 12/31/17 07/06/18 History allopurinol 100 mg tablet 100 mg PO DAILY 12/31/17 07/06/18 History aripiprazole 10 mg tablet 10 mg PO HS 12/31/17 07/06/18 History ascorbic acid (vitamin C) 500 mg 500 mg PO BID 12/31/17 07/06/18 History capsule carbidopa 25 mg-levodopa 100 mg 2 tab PO QID 12/31/17 07/06/18 History tablet cholecalciferol (vitamin D3) 2,000 2,000 unit PO DAILY 12/31/17 07/06/18 History unit capsule diazepam 5 mg tablet 5 mg PO BID tab 12/31/17 07/06/18 History duloxetine 60 mg capsule,delayed 60 mg PO DAILY 12/31/17 07/06/18 History release gabapentin 400 mg capsule 400 mg PO TID 12/31/17 07/06/18 History ondansetron HCl 4 mg tablet 4 mg PO Q8HP PRN 12/31/17 07/06/18 History polyethylene glycol 3350 17 17 g PO DAILY each 12/31/17 07/06/18 History gram/dose oral powder simvastatin 40 mg tablet 40 mg PO HS 12/31/17 07/06/18 History Aspirin [Aspirin 81mg chewable 81 mg PO DAILY 03/09/18 07/06/18 History tab] Bisacodyl [Bisacodyl 10mg Supp] 10 mg RC DAILYP PRN 03/09/18 07/06/18 History Clopidogrel Bisulfate [Plavix 75mg 75 mg PO DAILY 03/09/18 07/06/18 History Tab] Isosorbide Dinitrate 10 mg PO TID 03/09/18 07/06/18 History Lactulose [Lactulose 10gm/15ml 60 ml PO BID 03/09/18 07/06/18 History Oral Soln] Polyvinyl Alcohol [Liquitears] 1 drop OP BIDP PRN 03/09/18 07/06/18 History Sennosides/Docusate Sodium 2 tab PO DAILY 03/09/18 07/06/18 History [Docusate Sodium-Senna Tablet] Pantoprazole Sodium [Protonix 40mg 40 mg PO BID 03/17/18 07/06/18 History tablet] Hydrocod/Acet 5/325 mg [[place] 1 tab PO TID PRN 05/28/18 07/06/18 History 5/325mg tablet] Tamsulosin HCl [Flomax 0.4mg 0.4 mg PO HS 05/28/18 07/06/18 History capsule] Duloxetine HCl [Cymbalta] 30 mg PO DAILY 05/29/18 07/06/18 History Rotigotine [Neupro] 1 each TD DAILY 07/06/18 07/06/18 History Allergies Allergy/AdvReac Type Severity Reaction Status Date / Time pregabalin [From LYRICA] Allergy Unknown Verified 07/06/18 04:16 Exam Vital signs and Labs for Last 24 Hours: Temp Pulse Resp BP Pulse Ox 97.6 F 76 15 133/75 96 07/06/18 08:01 07/06/18 08:01 07/06/18 08:01 07/06/18 08:01 07/06/18 08:01 Laboratory Results - last 24 hr 07/06/18 04:15: WBC 6.9, RBC 4.79, Hgb 12.4 L, Hct 39.7 L, MCV 82.9, MCH 25.9 L , MCHC 31.2 L, RDW 15.0, Plt Count 278, MPV 7.3 L, Neut % (Auto) 55.3, Lymph % ( Auto) 29.1, [place] % (Auto) 6.4, Eos % (Auto) 8.5, Baso % (Auto) 0.8, Neut # (Auto ) 3.8, Lymph # (Auto) 2.0, [place] # (Auto) 0.4, Eos # (Auto) 0.6 H, Baso # (Auto) 0.1 07/06/18 04:15: Sodium 138, Potassium 4.9, Chloride 102, Carbon Dioxide 29, Anion Gap 11.9, BUN 22 H, Creatinine 1.14, Estimated Creat Clear 59, Estimated GFR 66, Est GFR ( Amer) 80, Glucose 191 H, Calcium 9.0, Total Bilirubin 0.4, AST 14 L, ALT 10 L, Alkaline Phosphatase 89, Total Protein 7.8 D, Albumin 3.6, Globulin 4.2 H, Albumin/Globulin Ratio 0.9 L 07/06/18 04:15: Lactate 1.6 07/06/18 04:30: Specimen Source Rt radial, O2 % 21, ABG pH 7.37, ABG pCO2 46.0 H , ABG pO2 77.0 L, ABG HCO3 26.1 H, ABG Total CO2 27.5 H, ABG O2 Saturation 95, ABG Base Excess 0.8, Cristino Test Acceptable 07/06/18 04:37: Urine Color Yellow, Urine Appearance Clear, Urine pH 5.5, Ur Specific [place] 1.025, Urine Protein Negative, Urine Glucose (UA) Negative, Urine Ketones Negative, Urine Blood Negative, Urine Nitrate Negative, Urine Bilirubin Negative, Urine Urobilinogen 0.2, Ur Leukocyte Esterase Negative, Urine WBC Occasional, Urine Bacteria 1+ 07/06/18 06:15: WBC 7.2, RBC 4.42 L, Hgb 11.4 L, Hct 36.7 L, MCV 83.1, MCH 25.7 L, MCHC 31.0 L, RDW 14.9, Plt Count 250, MPV 7.3 L, Neut % (Auto) 65.7, Lymph % (Auto) 22.7, [place] % (Auto) 4.7, Eos % (Auto) 6.4, Baso % (Auto) 0.5, Neut # ( Auto) 4.7, Lymph # (Auto) 1.6, [place] # (Auto) 0.3, Eos # (Auto) 0.5 H, Baso # ( Auto) 0.0 07/06/18 06:15: Sodium 136, Potassium 4.4, Chloride 102, Carbon Dioxide 29, Anion Gap 9.4, BUN 20 H, Creatinine 1.10, Estimated Creat Clear 96, Estimated GFR 69, Est GFR ( Amer) 83, Glucose 196 H, Calcium 8.6, Troponin I < 0.02 I & O for Last 24 hours: Intake & Output 07/03/18 07/04/18 07/05/18 07/06/18 11:59 11:59 11:59 11:59 Intake Total 1100 / 1100 Output Total 1100 / 1100 Balance 0 / 0 Weight 203 lb 7.01 oz - Constitutional no acute distress - *Routine HEENT Exam Head: Present: normocephalic Eye: Present: EOMI, PERRL ENT: Absent: mucous membranes dry - *Routine Neck Exam Absent: JVD - *Routine Respiratory Exam Present: decreased breath sounds - *Routine Cardiovascular Exam Present: RRR, murmur - *Routine Abdominal Exam Present: soft - *Routine Extremities Exam Absent: calf tenderness - *Routine Skin Exam Present: intact - *Routine Neurological Exam Present: alert, CN II-XII intact - Routine Psychiatric Exam Present: unable to assess H&P: Result - Labs Labs: Short CBC 07/06/18 07/06/18 Range/Units 04:15 06:15 WBC 6.9 7.2 (4.8-10.8) K/mm3 Hgb 12.4 L 11.4 L (14.1-18.0) g/dL Hct 39.7 L 36.7 L (42.0-52.0) % Plt Count 278 250 (142-424) K/mm3 BMP 07/06/18 07/06/18 04:15 06:15 Sodium 138 136 Potassium 4.9 4.4 Chloride 102 102 Carbon Dioxide 29 29 BUN 22 H 20 H Creatinine 1.14 1.10 Glucose 191 H 196 H Calcium 9.0 8.6 Cardiac Enzymes 07/06/18 Range/Units 06:15 Troponin I < 0.02 (0.00-0.06) ng/ml Liver Function 07/06/18 Range/Units 04:15 Total Bilirubin 0.4 (0.2-1.0) mg/dL AST 14 L (15-37) U/L ALT 10 L (12-78) U/L Alkaline Phosphatase 89 (46-116) U/L Albumin 3.6 (3.4-5.0) gm/dL Urine 07/06/18 Range/Units 04:37 Urine Color Yellow (Yellow) Urine Appearance Clear (Clear) Urine pH 5.5 (5.0-8.5) Ur Specific [place] 1.025 (1.005-1.030) Urine Protein Negative (Negative) Urine Glucose (UA) Negative (Negative) Assessment and Plan (1) Febrile illness, acute Current visit: Yes Status: Acute Category: Medical Code(s): R50.9 - Fever , unspecified (2) Renal insufficiency Current visit: Yes Status: Chronic Category: Medical Code(s): N28.9 - Disorder of kidney and ureter, unspecified
--- NOTE | 2018-07-06 08:59 | Pharmacy Consult Notes ---
- Pharmacy Consult Date: 07/06/18 Time: 08:58 Referring provider: DR. KELLER Reason for Consult:: VANCOMYCIN DOSING Allergies and ADEs:: Allergies Allergy/AdvReac Type Severity Reaction Status Date / Time pregabalin [From LYRICA] Allergy Unknown Verified 07/06/18 04:16 Home Medications:: Home Medications Medication Instructions Recorded Confirmed Type acetaminophen 500 mg tablet 500 mg PO Q4HP PRN 12/31/17 07/06/18 History allopurinol 100 mg tablet 100 mg PO DAILY 12/31/17 07/06/18 History aripiprazole 10 mg tablet 10 mg PO HS 12/31/17 07/06/18 History ascorbic acid (vitamin C) 500 mg 500 mg PO BID 12/31/17 07/06/18 History capsule carbidopa 25 mg-levodopa 100 mg 2 tab PO QID 12/31/17 07/06/18 History tablet cholecalciferol (vitamin D3) 2,000 2,000 unit PO DAILY 12/31/17 07/06/18 History unit capsule diazepam 5 mg tablet 5 mg PO BID tab 12/31/17 07/06/18 History duloxetine 60 mg capsule,delayed 60 mg PO DAILY 12/31/17 07/06/18 History release gabapentin 400 mg capsule 400 mg PO TID 12/31/17 07/06/18 History ondansetron HCl 4 mg tablet 4 mg PO Q8HP PRN 12/31/17 07/06/18 History polyethylene glycol 3350 17 17 g PO DAILY each 12/31/17 07/06/18 History gram/dose oral powder simvastatin 40 mg tablet 40 mg PO HS 12/31/17 07/06/18 History Aspirin [Aspirin 81mg chewable 81 mg PO DAILY 03/09/18 07/06/18 History tab] Bisacodyl [Bisacodyl 10mg Supp] 10 mg RC DAILYP PRN 03/09/18 07/06/18 History Clopidogrel Bisulfate [Plavix 75mg 75 mg PO DAILY 03/09/18 07/06/18 History Tab] Isosorbide Dinitrate 10 mg PO TID 03/09/18 07/06/18 History Lactulose [Lactulose 10gm/15ml 60 ml PO BID 03/09/18 07/06/18 History Oral Soln] Polyvinyl Alcohol [Liquitears] 1 drop OP BIDP PRN 03/09/18 07/06/18 History Sennosides/Docusate Sodium 2 tab PO DAILY 03/09/18 07/06/18 History [Docusate Sodium-Senna Tablet] Pantoprazole Sodium [Protonix 40mg 40 mg PO BID 03/17/18 07/06/18 History tablet] Hydrocod/Acet 5/325 mg [[place] 1 tab PO TID PRN 05/28/18 07/06/18 History 5/325mg tablet] Tamsulosin HCl [Flomax 0.4mg 0.4 mg PO HS 05/28/18 07/06/18 History capsule] Duloxetine HCl [Cymbalta] 30 mg PO DAILY 05/29/18 07/06/18 History Rotigotine [Neupro] 1 each TD DAILY 07/06/18 07/06/18 History Height: 1.68 m Weight: 92.278 kg Laboratory Results:: Laboratory Results - last 24 hr 07/06/18 04:15: WBC 6.9, RBC 4.79, Hgb 12.4 L, Hct 39.7 L, MCV 82.9, MCH 25.9 L , MCHC 31.2 L, RDW 15.0, Plt Count 278, MPV 7.3 L, Neut % (Auto) 55.3, Lymph % ( Auto) 29.1, [place] % (Auto) 6.4, Eos % (Auto) 8.5, Baso % (Auto) 0.8, Neut # (Auto ) 3.8, Lymph # (Auto) 2.0, [place] # (Auto) 0.4, Eos # (Auto) 0.6 H, Baso # (Auto) 0.1 07/06/18 04:15: Sodium 138, Potassium 4.9, Chloride 102, Carbon Dioxide 29, Anion Gap 11.9, BUN 22 H, Creatinine 1.14, Estimated Creat Clear 59, Estimated GFR 66, Est GFR ( Amer) 80, Glucose 191 H, Calcium 9.0, Total Bilirubin 0.4, AST 14 L, ALT 10 L, Alkaline Phosphatase 89, Total Protein 7.8 D, Albumin 3.6, Globulin 4.2 H, Albumin/Globulin Ratio 0.9 L 07/06/18 04:15: Lactate 1.6 07/06/18 04:30: Specimen Source Rt radial, O2 % 21, ABG pH 7.37, ABG pCO2 46.0 H , ABG pO2 77.0 L, ABG HCO3 26.1 H, ABG Total CO2 27.5 H, ABG O2 Saturation 95, ABG Base Excess 0.8, Cristino Test Acceptable 07/06/18 04:37: Urine Color Yellow, Urine Appearance Clear, Urine pH 5.5, Ur Specific [place] 1.025, Urine Protein Negative, Urine Glucose (UA) Negative, Urine Ketones Negative, Urine Blood Negative, Urine Nitrate Negative, Urine Bilirubin Negative, Urine Urobilinogen 0.2, Ur Leukocyte Esterase Negative, Urine WBC Occasional, Urine Bacteria 1+ 07/06/18 06:15: WBC 7.2, RBC 4.42 L, Hgb 11.4 L, Hct 36.7 L, MCV 83.1, MCH 25.7 L, MCHC 31.0 L, RDW 14.9, Plt Count 250, MPV 7.3 L, Neut % (Auto) 65.7, Lymph % (Auto) 22.7, [place] % (Auto) 4.7, Eos % (Auto) 6.4, Baso % (Auto) 0.5, Neut # ( Auto) 4.7, Lymph # (Auto) 1.6, [place] # (Auto) 0.3, Eos # (Auto) 0.5 H, Baso # ( Auto) 0.0 07/06/18 06:15: Sodium 136, Potassium 4.4, Chloride 102, Carbon Dioxide 29, Anion Gap 9.4, BUN 20 H, Creatinine 1.10, Estimated Creat Clear 96, Estimated GFR 69, Est GFR ( Amer) 83, Glucose 196 H, Calcium 8.6, Troponin I < 0.02 Medical History: Reports:: Anxiety, Atherosclerotic Heart Disease, Coronary Artery Disease, Depression, Diabetes Mellitus Type 2, Hyperlipidemia, Hypertension, MRSA, Peripheral Vascular Disease Denies:: Cancer Assessment and Plan (1) Febrile illness, acute Current visit: Yes Status: Acute Category: Medical Code(s): R50.9 - Fever , unspecified (2) Renal insufficiency Current visit: Yes Status: Chronic Category: Medical Code(s): N28.9 - Disorder of kidney and ureter, unspecified - Assessment and plan all Dx Assessment and Plan for all problems:: BASED ON PATIENT'S FACTORS, RECOMMEND CONTINUING WITH VANCOMYCIN 1750 MG Q18H AT THIS TIME. PHARMACY WILL FOLLOW DAILY AND ADJUST APPROPRIATE. EUNICE MOLINA [facility] CENTERSharif
--- NOTE | 2018-07-07 09:05 | Discharge Summary ---
Addendum entered and electronically signed by Shauna Osborne APRN 07/30/18 13:11: history of copd ef 20 % with sob chronic congestive heart failure Original Note: General - General Admission date:: 07/06/18 Discharge date: 07/07/18 HPI HPI: pt was sent from [facility] for cough and sob and change in mental status - pt unable to give specific hx but was noted to have fever in the ed and was admitted for ivf and abx Hospital Course Hospital Course: pt has did better with ivf and has no fever and tolerating diet and at baseline mental status - with stable labs Objective Vital signs: Temp Pulse Resp BP Pulse Ox 98.1 F 87 18 122/72 93 L 07/07/18 07:55 07/07/18 07:55 07/07/18 07:55 07/07/18 07:55 07/07/18 08:00 no acute distress - *Routine HEENT Exam Head: Present: normocephalic Eye: Present: EOMI, PERRL ENT: Present: mucous membranes dry - *Routine Neck Exam Absent: JVD - *Routine Respiratory Exam Present: rhonchi - *Routine Cardiovascular Exam Present: RRR, murmur, S4 - *Routine Abdominal Exam Present: soft - *Routine Extremities Exam Present: edema. Absent: calf tenderness - *Routine Skin Exam Present: intact - *Routine Neurological Exam Present: alert, CN II-XII intact - Routine Psychiatric Exam Present: normal affect Results Labs on day of discharge: Labs from last 24 hours 07/06/18 07/06/18 12:17 09:10 Troponin I < 0.02 < 0.02 DS: Diagnosis - Discharge Diagnosis (1) Febrile illness, acute Status: Acute (2) Renal insufficiency Status: Chronic (3) Bronchitis Status: Acute (4) Parkinson disease Status: Acute Discharge Plan - Patient Discharge Instructions ACTIVITY: Continue current activity DIET: continue same diet Patient Instructions: How to Change the Dressing on a Central Line Catheter for Adults, How to Change the Dressing on a Central Line Catheter for Children, [place] ncomycin-Resistant Enterococci Infection, Central Line-Associated Bloodstream Infections, Central Line Inserted Central Catheter, DI for Multiple Drug- resistant Organism (MDRO) Infection - Follow up Plan Disposition: er [facility] Home Medications: Home Medications Medication Instructions Recorded Confirmed Type acetaminophen 500 mg tablet 500 mg PO Q4HP PRN 12/31/17 07/06/18 History allopurinol 100 mg tablet 100 mg PO DAILY 12/31/17 07/06/18 History aripiprazole 10 mg tablet 10 mg PO HS 12/31/17 07/06/18 History ascorbic acid (vitamin C) 500 mg 500 mg PO BID 12/31/17 07/06/18 History capsule carbidopa 25 mg-levodopa 100 mg 2 tab PO QID 12/31/17 07/06/18 History tablet cholecalciferol (vitamin D3) 2,000 2,000 unit PO DAILY 12/31/17 07/06/18 History unit capsule diazepam 5 mg tablet 5 mg PO BID tab 12/31/17 07/06/18 History duloxetine 60 mg capsule,delayed 60 mg PO DAILY 12/31/17 07/06/18 History release gabapentin 400 mg capsule 400 mg PO TID 12/31/17 07/06/18 History ondansetron HCl 4 mg tablet 4 mg PO Q8HP PRN 12/31/17 07/06/18 History polyethylene glycol 3350 17 17 gm PO DAILY each 12/31/17 07/06/18 History gram/dose oral powder simvastatin 40 mg tablet 40 mg PO HS 12/31/17 07/06/18 History Aspirin [Aspirin 81mg chewable 81 mg PO DAILY 03/09/18 07/06/18 History tab] Bisacodyl [Bisacodyl 10mg Supp] 10 mg RC DAILYP PRN 03/09/18 07/06/18 History Clopidogrel Bisulfate [Plavix 75mg 75 mg PO DAILY 03/09/18 07/06/18 History Tab] Isosorbide Dinitrate 10 mg PO TID 03/09/18 07/06/18 History Lactulose [Lactulose 10gm/15ml 60 ml PO BID 03/09/18 07/06/18 History Oral Soln] Polyvinyl Alcohol [Liquitears] 1 drop OP BIDP PRN 03/09/18 07/06/18 History Sennosides/Docusate Sodium 2 tab PO DAILY 03/09/18 07/06/18 History [Docusate Sodium-Senna Tablet] Pantoprazole Sodium [Protonix 40mg 40 mg PO BID 03/17/18 07/06/18 History tablet] Hydrocod/Acet 5/325 mg [[place] 1 tab PO TID PRN 05/28/18 07/06/18 History 5/325mg tablet] Tamsulosin HCl [Flomax 0.4mg 0.4 mg PO HS 05/28/18 07/06/18 History capsule] Duloxetine HCl [Cymbalta] 30 mg PO DAILY 05/29/18 07/06/18 History Rotigotine [Neupro] 1 each TD DAILY 07/06/18 07/06/18 History Prescriptions/Medication Reconciliation: New Azithromycin [Zithromax 250mg tab] 250 mg PO DIRECTED #6 tab cephALEXin [Keflex 500mg Cap] 500 mg PO TID #30 cap Continue ascorbic acid (vitamin C) 500 mg capsule 500 mg PO BID cholecalciferol (vitamin D3) 2,000 unit capsule 2,000 unit PO DAILY diazepam 5 mg tablet 5 mg PO BID tab duloxetine 60 mg capsule,delayed release 60 mg PO DAILY gabapentin 400 mg capsule 400 mg PO TID ondansetron HCl 4 mg tablet 4 mg PO Q8HP PRN PRN Reason: Nausea allopurinol 100 mg tablet 100 mg PO DAILY aripiprazole 10 mg tablet 10 mg PO HS carbidopa 25 mg-levodopa 100 mg tablet 2 tab PO QID acetaminophen 500 mg tablet 500 mg PO Q4HP PRN PRN Reason: Fever > 100.4 polyethylene glycol 3350 17 gram/dose oral powder 17 gm PO DAILY each simvastatin 40 mg tablet 40 mg PO HS Polyvinyl Alcohol [Liquitears] 1 drop OP BIDP PRN PRN Reason: EYE LUBRICATION Bisacodyl [Bisacodyl 10mg Supp] 10 mg RC DAILYP PRN PRN Reason: Constipation Lactulose [Lactulose 10gm/15ml Oral Soln] 60 ml PO BID Isosorbide Dinitrate 10 mg PO TID Clopidogrel Bisulfate [Plavix 75mg Tab] 75 mg PO DAILY Sennosides/Docusate Sodium [Docusate Sodium-Senna Tablet] 2 tab PO DAILY Tamsulosin HCl [Flomax 0.4mg capsule] 0.4 mg PO HS Hydrocod/Acet 5/325 mg [[place] 5/325mg tablet] 1 tab PO TID PRN PRN Reason: PAIN Duloxetine HCl [Cymbalta] 30 mg PO DAILY Rotigotine [Neupro] 1 each TD DAILY Aspirin [Aspirin 81mg chewable tab] 81 mg PO DAILY Pantoprazole Sodium [Protonix 40mg tablet] 40 mg PO BID
== END 2018-07-07 11:24 ==
LOC: ER 04:09 → 2ND 04:09 → OBSVTOIN 05:40 → 2ND 06:18
PROVIDERS: ADMIT Emergency Medicine; ATTEND Emergency Medicine

== ENCOUNTER → 2018-08-31 08:53 | Outpatient (CLI) | payer MEDICARE, MEDICAID, SELFPAY ==
--- NOTE | 2018-08-31 09:35 | XR_ITS ---
XR KUB HISTORY: ITS.REASON: constipation ORDERING PHYSICIAN: Nicholas Degroot MD PATIENT AGE: 57 years COMPARISON: None FINDINGS: The patient was scheduled for barium enema however, there was a moderate amount of residual feces within the ascending and transverse colon precluding the performance of an adequate barium enema. Instructions are given to repeat the colon prep and exam is rescheduled. IMPRESSION: Constipation
== END ==
PROVIDERS: Family Provider Emergency Medicine; PCP Emergency Medicine; Visit Provider Surgery
DX: K59.00 Constipation, unspecified (principal)
CPT/HCPCS: 74018

== ENCOUNTER → 2018-09-07 11:16 | Outpatient (CLI) | payer MEDICARE, MEDICAID, SELFPAY ==
--- NOTE | 2018-09-07 11:20 | FL_ITS ---
FL barium enema CLINICAL INDICATION: ITS.REASON: CONSTIPATION ORDERING PHYSICIAN: Nicholas Degroot MD PATIENT AGE: 57 years Comparison: FINDINGS: The skeletal exam shows a residual stool in the right colon however, this was patient's second prep. There was a moderate amount gas present within the colon and small bowel. The study is very limited due to patient's and ability to be properly positioned and also later in the examination the patient could not hold the contrast. There is marked redundancy of the sigmoid colon. No annular constricting lesions are evident. There was some residual stool in the ascending colon. The ascending colon and cecum could therefore not be adequately opacified. The cecum and ascending colon did appear to fill with contrast on the overhead images as well as the postevacuation image. There were a few scattered diverticula. IMPRESSION: Very limited exam as described above. Grossly, no annular constricting lesions evident. Severe redundancy of the colon Scattered diverticula
== END ==
PROVIDERS: Family Provider Emergency Medicine; PCP Emergency Medicine; Visit Provider Surgery
DX: K59.00 Constipation, unspecified (principal)
CPT/HCPCS: 74270